=== PATIENT | female | born 1980 | race Caucasian/White ===

== ENCOUNTER 2020-06-22 14:58 | Emergency (ER) | payer OTHER, SELFPAY ==
--- NOTE | 2020-06-22 | CT_ITS ---
EXAMINATION: CT ABDOMEN AND PELVIS WITHOUT CONTRAST CLINICAL INFORMATION: Left flank pain. Evaluate for stone. COMPARISON: None TECHNIQUE: Multidetector volumetric imaging was performed from the superior aspect of the liver through the pubic symphysis. Sagittal and coronal reformatted images were obtained on the technologist's workstation. This CT examination was performed using dose optimization techniques as appropriate, variously including the following: *Automated exposure control *Adjustment of mA and/or kV according to patient size (this includes techniques or standardized protocols for targeted exams where dose is matched to indication/reason for exam; i.e. extremities or head) *Use of iterative reconstruction technique DLP: 873 mGy-cm FINDINGS: LUNG BASES: The visualized lung bases are clear. There is a small right posterior medial diaphragmatic hernia containing fat. LIVER, GALLBLADDER, AND BILIARY TREE: The liver is normal in size, shape, and attenuation. No focal hepatic lesion or biliary ductal dilatation is present. The gallbladder is unremarkable with no evidence of radiopaque gallstones, gallbladder wall thickening, or obvious pericholecystic inflammatory changes. PANCREAS: Unremarkable. SPLEEN: Unremarkable. ADRENAL GLANDS: Unremarkable. KIDNEYS AND URETERS: The kidneys are normal in size, shape, and attenuation. No hydronephrosis, hydroureter, or calculi seen. No perinephric stranding. BLADDER: Not optimally distended. GASTROINTESTINAL TRACT: There is mild diverticulosis of the colon. There is no evidence of diverticulitis. The small and large bowel are otherwise unremarkable. The appendix is is not identified. The stomach is unremarkable. ABDOMINAL WALL: There is an umbilical hernia containing fat. LYMPH NODES: There are small, small bowel mesentery and retroperitoneal lymph nodes. No enlarged lymph nodes are seen. VASCULAR: Unremarkable. PELVIC VISCERA: Unremarkable. OSSEOUS STRUCTURES: Unremarkable. IMPRESSION: Normal-appearing kidneys and ureters. No stone or hydronephrosis seen. Diverticulosis of the colon. No evidence of diverticulitis. Umbilical hernia containing fat.
--- NOTE | 2020-06-22 15:16 | ED.URI ---
HPI - URI/Sore Throat General Chief Complaint: Upper Respiratory Symptoms Stated Complaint: flank pain,eye problem Time Seen by Provider: 06/22/20 15:15 Source: patient Mode of arrival: ambulatory Limitations: no limitations History of Present Illness HPI Narrative: 40-year-old female here with multiple complaints. The patient tells me she was exposed to COVID positive patient 1 week ago. Since then she has had cough, subjective fevers, chills, body aches. no chest pain, shortness of breath. Patient is also complaining of chronic bilateral eye drainage which appears white and stringy at times it is associated with itching. She has tried multiple antibiotic ointments and [id number] eye drops with no relief. The patient is also complaining of left-sided back pain which began 2 days ago with no known injury or trauma. The pain radiates down to the groin. She has some urinary frequency and hesitancy with no dysuria or hematuria. No fevers, chills with this. No nausea or vomiting. Last menses 1 week ago. MD elicited complaint: fever ( Subjective), cough and rhinorrhea Onset (ago): day(s) Consistency: constant Severity: mild Context: sick contacts ( COVID positive contact 1 week ago) Related Data Previous Rx's Medication Instructions Recorded albuterol sulfate [ProAir HFA] 1 inh INHALATION QID PRN #6.7 g 06/22/20 benzonatate [Tessalon Perles] 100 mg PO TID PRN #10 cap 06/22/20 cetirizine 10 mg PO DAILY #30 tab 06/22/20 cyclobenzaprine 10 mg PO Q8H PRN #10 tab 06/22/20 lidocaine [Lidoderm] 1 patch TOPICAL DAILY #15 ea 06/22/20 naproxen 500 mg PO BID #14 tab 06/22/20 olopatadine [Pataday] 1 drp OPHTHALMIC (EYE) DAILY PRN 06/22/20 #2.5 ml Allergies Allergy/AdvReac Type Severity Reaction Status Date / Time tramadol [TRAMADOL] Allergy Intermediate DIARRHEA Unverified 06/01/20 17:43 ondansetron AdvReac Mild NAUSEA & Unverified 06/01/20 17:43 [From ZOFRAN ( VOMITING HYDROCHLORIDE)] Review of Systems Review of Systems: Yes all other systems are reviewed and are negative Constitutional: Constitutional: Reports no additional constitutional complaints, Reports body ache(s), Reports chills, Reports fever(s) ( subjective), Denies headache(s) and Denies weakness Eyes: Eyes: Reports no additional eye complaints, Denies change in vision and Reports eye discharge ( clear, stringy) ENT: Reports system reviewed and no additional complaints, except as documented, Denies headache(s), Denies nasal congestion, Denies nasal discharge and Denies neck pain Cardiovascular: Cardiovascular: Reports no additional cardiovascular complaints, Denies chest pain, Denies leg edema and Denies dyspnea Respiratory: Respiratory: Reports no additional respiratory complaints, Reports cough and Denies dyspnea Gastrointestinal: Gastrointestinal: Reports no additional gastrointestinal complaints, Denies abdominal pain, Denies diarrhea, Denies nausea and Denies vomiting Genitourinary: Genitourinary: Denies hematuria, Denies dysuria, Denies urinary hesitancy, Denies urinary urgency and Denies vaginal discharge Comments: frequency , hesitancy Musculoskeletal: Musculoskeletal: Reports no additional musculoskeletal complaints, Reports back pain, Denies arthralgias, Denies joint swelling, Denies neck pain, Denies numbness and Denies tingling Integumentary/Breasts: Skin/Breast: Reports system reviewed and no additional complaints, except as docu and Denies rash Neurologic: Reports system reviewed and no additional complaints, except as documented, Denies Abnormal speech present, Denies headache(s), Denies numbness, Denies Sensory deficit (Neuro), Denies tingling and Denies weakness PMFSH Past Medical History Attestation statement: The following information was validated with the patient. Source: obtained from family Social History Social History Smoking Status: Light tobacco smoker Smoked in Last 30 Days: Yes Use of substances other than those prescribed or required for medical reasons: No Advance Directives: No Advance Directives Information Provided: No Physical Exam Vital Signs and I&O and Narrative: Vital Signs and I&O: Vital Signs Temp 98.7 F 06/22/20 15:19 Pulse 71 06/22/20 15:19 Resp 17 06/22/20 15:19 BP 112/70 06/22/20 15:19 Pulse Ox 100 06/22/20 15:19 Intake & Output 06/21/20 06/22/20 06/22/20 18:59 06:59 18:59 Weight 95.254 kg Body Mass Index 32.8 Const: General: cooperative, healthy appearing, comfortable and no acute distress Orientation/consciousness: patient oriented x3 Limitations: no limitations HENMT: Head: Yes normal to inspection Ears: hearing grossly normal bilaterally General nose exam: Normal external nose present Face and sinus: Yes normal facial exam Mouth: Normal oral and palatal mucosa present Throat: Yes posterior oropharynx normal Eyes: General: appearance normal, both eyes and all related structures Visual Snider: normal visual snider by confrontation Eyelids: Yes eyelids normal Conjunctivae: conjunctivae normal ( mild bilateral injection, no discharge) Pupils: Equal, round and reactive pupils present EOM: EOMs intact bilaterally Neck: Neck: Yes normal visual inspection Chest: Chest palpation & inspection: normal inspection of the chest Resp: Effort & Inspection: normal respiratory effort Auscultation: clear to auscultation bilaterally Cardio: Rate: regular rate Rhythm: regular rhythm Peripheral pulses: Peripheral pulses 2+ throughout GI: Inspection: Yes normal to inspection Palpation (GI): Soft to palpation and nontender Auscultation: normal bowel sounds Back/Spine/Pelvis: Other: mild left CVA tenderness. More soft tissue tenderness in the left lumbar paraspinal area. No midline tenderness, step-offs or deformities. Thoracic/Lumbar Spine: thoracic and lumbar spine normal to inspection Skin: General skin exam: no rashes or lesions noted Neuro: General: patient oriented x3, no focal motor deficits and normal sensation to monofilament Cranial nerves: Yes Equal, round and reactive pupils present Cognition (Neuro): normal cognition Speech: No Abnormal speech present Gait exam (Neuro): Normal gait present Motor exam (neuro): 5/5 motor strength present throughout Sensory Exam: No Sensory deficit (Neuro) Extrem: General: Yes normal to inspection MDM - URI/Sore Throat MDM Narrative Medical decision making narrative: 40-year-old female here with multiple complaints. Complaining of flu-like symptoms with COVID exposure for about 1 week. well appearing, stable vital signs. Will check COVID swab. Also complaining of some left mid back pain with some urinary frequency and hesitancy. Will check UA. Exam are consistent with lumbar strain however due to microscopic hematuria and complains of urinary frequency and hesitancy will check CT abdomen and pelvis to rule out renal colic. Also complaining of some Eye itching with watery, stringy discharge. Consistent with allergic conjunctivitis. 1700- CT unremarkable. Likely lumbar strain. Discussed this with the patient and doing supportive care at home. Again COVID testing sent. Stable vital signs with clear lung sounds throughout. Requesting cough suppressants and albuterol inhaler refill. Discussed care for allergic conjunctivitis at home. Reviewed worrisome signs symptoms of when to return to the emergency department. Comfortable discharge home. Lab Data Labs: Lab Results 06/22/20 Range/Units 15:43 Urine Color YELLOW Urine Appearance CLEAR Urine pH 5.5 (5.0-8.0) Ur Specific [place] >= 1.030 H (1.005-1.025) Urine Protein NEG (NEG-TRACE) MG/DL Urine Glucose (UA) NEG (NEG) MG/DL Urine Ketones NEG (NEG) MG/DL Urine Blood 1+ H (NEG) Urine Nitrite NEG (NEG) Ur Leukocyte Esterase NEG (NEG) Urine RBC 5-9 H (0) /HPF Urine WBC 0 (0-4) /HPF Ur Squamous Epith Cells 2+ /LPF Urine Bacteria NONE /LPF Urine Test NEGATIVE (NEGATIVE) Imaging Data CT scan - abdomen: Attestation: I personally reviewed and interpreted this imaging study as follows: My impression: Unremarkable Radiologist's impression: XAMINATION: CT ABDOMEN AND PELVIS WITHOUT CONTRAST CLINICAL INFORMATION: Left flank pain. Evaluate for stone. COMPARISON: None TECHNIQUE: Multidetector volumetric imaging was performed from the superior aspect of the liver through the pubic symphysis. Sagittal and coronal reformatted images were obtained on the technologist's workstation. This CT examination was performed using dose optimization techniques as appropriate, variously including the following: *Automated exposure control *Adjustment of mA and/or kV according to patient size (this includes techniques or standardized protocols for targeted exams where dose is matched to indication/reason for exam; i.e. extremities or head) *Use of iterative reconstruction technique DLP: 873 mGy-cm FINDINGS: LUNG BASES: The visualized lung bases are clear. There is a small right posterior medial diaphragmatic hernia containing fat. LIVER, GALLBLADDER, AND BILIARY TREE: The liver is normal in size, shape, and attenuation. No focal hepatic lesion or biliary ductal dilatation is present. The gallbladder is unremarkable with no evidence of radiopaque gallstones, gallbladder wall thickening, or obvious pericholecystic inflammatory changes. PANCREAS: Unremarkable. SPLEEN: Unremarkable. ADRENAL GLANDS: Unremarkable. KIDNEYS AND URETERS: The kidneys are normal in size, shape, and attenuation. No hydronephrosis, hydroureter, or calculi seen. No perinephric stranding. BLADDER: Not optimally distended. GASTROINTESTINAL TRACT: There is mild diverticulosis of the colon. There is no evidence of diverticulitis. The small and large bowel are otherwise unremarkable. The appendix is is not identified. The stomach is unremarkable. ABDOMINAL WALL: There is an umbilical hernia containing fat. LYMPH NODES: There are small, small bowel mesentery and retroperitoneal lymph nodes. No enlarged lymph nodes are seen. VASCULAR: Unremarkable. PELVIC VISCERA: Unremarkable. OSSEOUS STRUCTURES: Unremarkable. IMPRESSION: Normal-appearing kidneys and ureters. No stone or hydronephrosis seen. Diverticulosis of the colon. No evidence of diverticulitis. Umbilical hernia containing fat. Discharge Plan Discharge Clinical Impression: Viral infection Lumbar strain Qualifiers: Encounter type: initial encounter Qualified Code(s): S39.012A - Strain of muscle, fascia and tendon of lower back, initial encounter Allergic conjunctivitis Qualifiers: Laterality: bilateral Qualified Code(s): H10.13 - Acute atopic conjunctivitis, bilateral Patient Disposition: Home, Self-Care Instructions: Low Back Strain (ED), Viral Syndrome (ED), Conjunctivitis (ED) Additional Instructions: We have tested you today for COVID-19. We will call you in 1-2 days with her test results . Prescriptions: New naproxen 500 mg tablet 500 mg PO BID Qty: 14 RF: 0 lidocaine [Lidoderm] 5 % adhesive patch,medicated 1 patch topical DAILY Qty: 15 RF: 0 cyclobenzaprine 10 mg tablet 10 mg PO Q8H PRN (Reason: muscle spasm) Qty: 10 RF: 0 benzonatate [Tessalon Perles] 100 mg capsule 100 mg PO TID PRN (Reason: cough) Qty: 10 RF: 0 cetirizine 10 mg tablet 10 mg PO DAILY Qty: 30 RF: 0 olopatadine [Pataday] 0.2 % drops 1 drp ophthalmic (eye) DAILY PRN (Reason: itching) Qty: 2.5 RF: 0 albuterol sulfate [ProAir HFA] 90 mcg/actuation HFA aerosol inhaler 1 inh inhalation QID PRN (Reason: shortness of breath or wheezing) Qty: 6.7 RF: 0 Referrals: Physician,None [Primary Care Provider] - 5 days Stand Alone Forms: Work/School Release Interventions: ED Discharge Assessment Last Done: 06/22/20 17:36 Discharge Date/Time: 06/22/20 17:36
[2020-06-22 15:19] VITALS: BP 112/70; PULSE 71; RESP 17; TEMP 37.1; O2SAT 100; BMI 32.8
[2020-06-22 15:55] LABS: Glucose Urine UA NEG (NEG); Leukocyte Esterase Urine NEG (NEG); Nitrite Urine NEG (NEG); PH 5.5 (5.0-8.0); Specific Gravity - Urine >= 1.030 (1.005-1.025); Urine Blood 1+ (NEG); Urine Ketones NEG (NEG); Urine Protein NEG (NEG-TRACE)
[2020-06-22 15:56] LABS: Appearance Urine CLEAR; Color Urine YELLOW
[2020-06-22 15:58] LABS: Urine Pregnancy NEGATIVE (NEGATIVE)
[2020-06-22 15:59] LABS: UPreg QC Valid YES
[2020-06-22 16:04] LABS: Squamous Epithelial Cell Urine 2+ /LPF; WBC Urine 0 /HPF (0-4)
== END 2020-06-22 17:36 | disposition home or self-care (01) ==
PROVIDERS: Nurse Practitioner Family; Emergency Provider Internal Medicine
DX: B34.9 Viral infection, unspecified (principal); Z20.828 Contact with and (suspected) exposure to other viral communicable diseases; H10.13 Acute atopic conjunctivitis, bilateral; S39.012A Strain of muscle, fascia and tendon of lower back, initial encounter; X58.XXXA Exposure to other specified factors, initial encounter; F17.210 Nicotine dependence, cigarettes, uncomplicated; Y93.9 Activity, unspecified; Y92.9 Unspecified place or not applicable; Y99.9 Unspecified external cause status
CPT/HCPCS: 74176; 81001; 81025; 87635; 99284

== ENCOUNTER 2021-05-14 13:57 | Emergency (ER) | payer MEDICAID, SELFPAY ==
[2021-05-14 14:15] VITALS: BP 111/72; PULSE 82; RESP 16; TEMP 36.8; O2SAT 99; BMI 31.7
--- NOTE | 2021-05-14 16:04 | ED_ITS ---
HPI - Skin/Abscess/Foreign Bdy General Chief complaint: Skin/Abscess/Foreign Body Stated complaint: cyst on back of left thigh x 2 weeks Time Seen by Provider: 05/14/21 16:04 Source: patient and EMS Mode of arrival: EMS Limitations: no limitations History of Present Illness HPI narrative: 41 y/o female with history of anxiety, depression, multiple abscesses in the past presenting to the ER with 1.5 weeks of worsening left posterior thigh abscess. She reports she ignored it and put it off because her father was just diagnosed with COVID-19 and last week. She reports generally not feeling well with some nausea. The redness and swelling has gotten worse in the last 48 hours. She also ran out of her Celexa and has not been able to see her PCP as she was dealing with her father's . She reports increased anxiety and depression in the setting of his loss. She is trying to get set up with a therapist. She was prescribed hydroxyzine at an Urgent Care but had an adverse reaction with increased anxiety. MD complaint: abscess/boil Onset (ago): week(s) Tetanus up to date: yes Location: LLE Severity: moderate Severity scale (1-10): 7 Quality: aching Pain Consistency: constant Relieving factors: none Exacerbating factors: palpation and movement Context: none Associated symptoms: chills and nausea Treatments prior to arrival: none Related Data Previous Rx's Medication Instructions Recorded albuterol sulfate 90 mcg/actuation 1 inh INHALATION QID PRN #6.7 g 06/22/20 aerosol inhaler (ProAir HFA) benzonatate 100 mg capsule 100 mg PO TID PRN #10 cap 06/22/20 (Adriana Paulson) cetirizine 10 mg tablet 10 mg PO DAILY #30 tab 06/22/20 cyclobenzaprine 10 mg tablet 10 mg PO Q8H PRN #10 tab 06/22/20 lidocaine 5 % topical patch 1 patch TOPICAL DAILY #15 ea 06/22/20 (Lidoderm) naproxen 500 mg tablet 500 mg PO BID #14 tab 06/22/20 olopatadine 0.2 % eye drops 1 drp OPHTHALMIC (EYE) DAILY PRN 06/22/20 (Pataday) #2.5 ml cephalexin 500 mg capsule 500 mg PO Q6H 7 Days #28 cap 05/14/21 citalopram 20 mg tablet (Celexa) 20 mg PO DAILY #14 tab 05/14/21 doxycycline monohydrate 100 mg 100 mg PO BID #14 cap 05/14/21 capsule lorazepam 0.5 mg tablet (Ativan) 0.5 mg PO BID PRN #6 tab 05/14/21 Allergies Allergy/AdvReac Type Severity Reaction Status Date / Time tramadol [TRAMADOL] Allergy Intermediate DIARRHEA Unverified 06/01/20 17:43 ondansetron AdvReac Mild NAUSEA & Unverified 06/01/20 17:43 [From ZOFRAN ( VOMITING HYDROCHLORIDE)] Review of Systems Review of Systems: Constitutional: No Fever, +Chills ENT/Mouth: No sore throat, No Rhinorrhea, No Swallowing Difficulty Cardiovascular: No Chest Pain, No SOB, No Orthopnea, No Edema Respiratory: No Cough, No Sputum, No Wheezing, No dyspnea Gastrointestinal: + Nausea, No Vomiting, No Diarrhea, No abdominal Pain Genitourinary: No Dysuria, No Urinary Frequency, No Hematuria Musculoskeletal: No joint pain, + Myalgias Skin: + Skin Lesions, No rash Neuro: No Weakness, No Numbness, No Dizziness, + Headache Psych: + Anxiety/Panic, + Depression Heme/Lymph: No Bruising, No Lymphadenopathy PMFSH Social History Social History Advance Directives: No Advance Directives Information Provided: No Patient : No Physical Exam Vital Signs: Vital Signs: Last Vital Signs Temp 98.2 F 05/14/21 14:15 Pulse 95 05/14/21 17:35 Resp 18 05/14/21 17:35 BP 103/59 L 05/14/21 17:35 Pulse Ox 97 05/14/21 17:35 Body Mass Index 31.7 Appearance: Alert. Oriented X3. No acute distress. anxious HEENT: normal inspection CVS: Normal heart rate and rhythm. Pulses normal. Respiratory: No respiratory distress. Skin: Skin warm and dry. Normal skin color. Normal skin turgor. No rashes. Extremities: left posteror thigh with moderate area of erythema and warmth with central area of fluctance and purplish coloration, very tender to touch. pulses normal. NV intact distally. no left calf tenderness. Neuro: Oriented X 3. No motor deficit. No sensory deficit. ambulates wtih steady gait. Course Course Course Narrative: 41 y/o female presenting with cellulitis and abscess of her l eft posterior thigh x1.5 weeks as well as increased anxiety and depression. Abscess was drained and will place on double coverage ABX. area marked with pen, advised to return if worsening erythema or pain. We discussed importance of outpatient follow up for her mental health as well as therapy. will give 2 week rx for celexa which she recently ran out of as well as 5 low dose ativan PRN for acute anxiety. Stable for d/c home, agrees to follow up with PCP [facility]. Procedures Abscess I/D Site: lower extremity Side (if applicable): left Local Anesthetic: lidocaine 2% Amount of anesthesia used (mL): 2 Technique: incised with blade Sent for culture/gram staining?: No Irrigation: Yes Packing used?: none Complications: pain Critical Care Time Critical Care Time Critical Care Time: No Discharge Plan Discharge Clinical Impression: Abscess of skin or subcutaneous tissue Qualifiers: Site of cutaneous abscess: extremity Site of cutaneous abscess of extremity: lower extremity Laterality: left Qualified Code(s): L02.416 - Cutaneous abscess of left lower limb Patient Disposition: Home, Self-Care Instructions: Abscess Incision and Drainage (DC) Additional Instructions: Take the prescribed antibiotics as directed. Use warm compresses to the area several times per day to help bring the infection to the surface and drain. Take Motrin and/or Tylenol as needed for pain. If you notice the red marked area is worsening despite 24-48 hours of antibiotics, come back to the ER for further evaluation. Follow up with your PCP [facility]. Take the prescribed medication as needed for anxiety - do not drive after taking this. Recommend following up with a therapist for anxiety management. Prescriptions: New doxycycline monohydrate 100 mg capsule 100 mg PO BID Qty: 14 RF: 0 cephalexin 500 mg capsule 500 mg PO Q6H 7 Days Qty: 28 RF: 0 citalopram [Celexa] 20 mg tablet 20 mg PO DAILY Qty: 14 RF: 0 lorazepam [Ativan] 0.5 mg tablet 0.5 mg PO BID PRN (Reason: anxiety) Qty: 6 RF: 0 No Action naproxen 500 mg tablet 500 mg PO BID Qty: 14 RF: 0 lidocaine [Lidoderm] 5 % adhesive patch,medicated 1 patch topical DAILY Qty: 15 RF: 0 cyclobenzaprine 10 mg tablet 10 mg PO Q8H PRN (Reason: muscle spasm) Qty: 10 RF: 0 benzonatate [Tessalon Perles] 100 mg capsule 100 mg PO TID PRN (Reason: cough) Qty: 10 RF: 0 cetirizine 10 mg tablet 10 mg PO DAILY Qty: 30 RF: 0 olopatadine [Pataday] 0.2 % drops 1 drp ophthalmic (eye) DAILY PRN (Reason: itching) Qty: 2.5 RF: 0 albuterol sulfate [ProAir HFA] 90 mcg/actuation HFA aerosol inhaler 1 inh inhalation QID PRN (Reason: shortness of breath or wheezing) Qty: 6.7 RF: 0 Referrals: Bianka Alvarez PA-C [[facility]] - 1 week (recurrent abscesses and rashes) Interventions: ED Discharge Assessment Last Done: 05/14/21 17:54 Discharge Date/Time: 05/14/21 17:55
[2021-05-14] MEDS: Lidocaine HCl 2 % MPF 5 ML VIAL INFILTRATI (16:37)
[2021-05-14] MEDS: Ibuprofen 600 MG TABLET PO (17:34)
[2021-05-14] MEDS: cephALEXin 500 MG CAPSULE PO (17:34)
[2021-05-14] MEDS: LORazepam 1 MG TABLET PO (17:34)
[2021-05-14 17:35] VITALS: BP 103/59; PULSE 95; RESP 18; O2SAT 97
== END 2021-05-14 17:55 | disposition home or self-care (01) ==
PROVIDERS: Emergency Provider Internal Medicine
DX: L02.416 Cutaneous abscess of left lower limb (principal); Z79.899 Other long term (current) drug therapy
CPT/HCPCS: 10060; 99284

== ENCOUNTER 2022-02-25 13:58 | Emergency (ER) | payer MEDICAID, SELFPAY | END 2022-02-25 14:41 | disposition left against medical advice (07) | PROVIDERS: Emergency Provider Emergency Medicine | DX: N23 Unspecified renal colic (principal) ==

== ENCOUNTER 2022-09-17 10:56 | Emergency (ER) | payer MEDICAID, SELFPAY ==
--- NOTE | ~2022-09-17 | CT_ITS ---
EXAMINATION: CT ABDOMEN AND PELVIS WITH CONTRAST CLINICAL INFORMATION: 42-year-old female with history of abdominal pain and elevated lipase, nausea, vomiting, diarrhea. COMPARISON: 06/22/2020 TECHNIQUE: Multidetector volumetric images were obtained from the superior aspect of the liver through the pubic symphysis following administration 85 mL of Omnipaque 350 intravenous contrast. Sagittal and coronal reformatted images were obtained on the technologist's workstation. Oral contrast: No This CT examination was performed using dose optimization techniques as appropriate, variously including the following: *Automated exposure control *Adjustment of mA and/or kV according to patient size (this includes techniques or standardized protocols for targeted exams where dose is matched to indication/reason for exam; i.e. extremities or head) *Use of iterative reconstruction technique DLP: 1696 mGy-cm FINDINGS: LUNG BASES: Minimal atelectasis in dependent aspect of each lower lobe. No pulmonary consolidation or pleural effusion. LIVER: Mild hepatomegaly. Liver parenchyma has attenuation approximately 30 HU lower than the spleen on these portal venous phase images, consistent with steatosis. No focal lesion or intrahepatic ductal dilatation. GALLBLADDER AND BILIARY TREE: Gallbladder is without radiopaque stones, wall thickening or pericholecystic fluid. No dilated bile ducts. PANCREAS: No acute findings within the atrophied pancreas. No edema, pancreatic ductal dilatation or mass. SPLEEN: Normal. ADRENAL GLANDS: Normal. KIDNEYS AND URETERS: The kidneys have normal size and cortical thickness. No perinephric edema or fluid collection. No urolithiasis or hydroureteronephrosis. BLADDER: Normal. No calculi or wall thickening. BOWEL AND PERITONEUM: Stomach and small bowel are unremarkable. No dilated loops of bowel. The appendix is not identified; however, no inflammatory changes in the right lower quadrant. No overt bowel wall thickening or mesenteric fat stranding. Multiple diverticula of the right and left colon without evidence of diverticulitis. No free fluid or pneumoperitoneum. ABDOMINAL WALL: Small fat-containing umbilical hernia is present. The hernia sac measures 1.9 cm wide. VASCULATURE: Unremarkable. LYMPH NODES: No pathologic sized lymph nodes in the abdomen or pelvis. No inguinal lymphadenopathy. PELVIC VISCERA: No uterine or adnexal mass. No pelvic free fluid. MUSCULOSKELETAL: Mild multilevel discovertebral degenerative change of the visualized lower thoracic spine. Moderate to severe facet osteoarthritis of L4-L5. No suspicious bone lesions. CT/CT abdomen pelvis w IV con IMPRESSION: * No acute findings. No imaging evidence of pancreatitis. * Mild hepatomegaly and diffuse hepatic steatosis. * Colonic diverticulosis without diverticulitis. * Small fat-containing umbilical hernia is present.
--- NOTE | ~2022-09-17 | XR_ITS ---
EXAMINATION: XR SHOULDER, RIGHT CLINICAL INFORMATION: Pain COMPARISON: Chest radiographs 05/19/2017 and 08/30/2016 TECHNIQUE: Right shoulder is imaged in 3 views. FINDINGS: There is borderline elevation distal right clavicle which may suggest mild acromioclavicular sprain. Recommend correlation with patient's symptoms and clinical exam. The glenohumeral joint appears normal. There is no fracture, dislocation, or destructive process. No visible rotator cuff calcifications. XR/XR shoulder RT min 2V IMPRESSION: 1. Borderline elevation distal right clavicle which may suggest mild acromioclavicular sprain. Recommend correlation with patient's symptoms and clinical exam. 2. No visible rotator cuff calcifications.
--- NOTE | ~2022-09-17 | CT_ITS ---
EXAMINATION: CT CERVICAL SPINE WITHOUT CONTRAST CLINICAL INFORMATION: Radicular symptoms right arm. COMPARISON: None TECHNIQUE: CT of the cervical spine was performed without contrast. Multiplanar reformats were rendered and reviewed. This CT examination was performed using dose optimization techniques as appropriate, variously including the following: *Automated exposure control *Adjustment of mA and/or kV according to patient size (this includes techniques or standardized protocols for targeted exams where dose is matched to indication/reason for exam; i.e. extremities or head) *Use of iterative reconstruction technique DLP: 1696 mGy-cm FINDINGS: The cervical vertebral bodies maintain normal heights and alignment. No fractures seen. The disc heights are preserved. The craniovertebral junction is intact without significant degenerative change. The facet joints are normally aligned. No significant facet arthropathy is seen. There is no significant osseous narrowing of the spinal canal. No significant neural foraminal stenosis is seen. The lung apices are clear. The cervical soft tissues appear normal. The imaged intracranial contents are unremarkable. CT/CT cervical spine wo IV con IMPRESSION: No cervical spine fracture or malalignment. No significant osseous narrowing of the spinal canal or neural foramina.
--- NOTE | 2022-09-17 11:56 | ED.GENADULT ---
HPI - General Adult General Chief complaint: Abdominal Pain <WOJCIECH Diaz - Last Filed: 09/17/22 12:03> Stated complaint: R arm numbness x3 weeks/Nausea <WOJCIECH Diaz Last Filed: 09/17/22 12:03> Time Seen by Provider: 09/17/22 14:37 <WOJCIECH Diaz - Last Filed: 09/17/22 12:03> Source: patient <Krystyna Conley DO - Last Filed: 09/17/22 17:06> Mode of arrival: ambulatory <Krystyna Conley DO - Last Filed: 09/17/22 17:06> Limitations: no limitations <Krystyna Conley DO - Last Filed: 09/17/22 17:06> History of Present Illness HPI narrative: 42 yo female with hx of anxiety, appendectomy with multiple complaints 1. R arm pain and numbness intermittent but daily and worse at night for a few months 2. N/v/d abdominal pain for the past few days 3. mood swings and anxiety with hot flashes and no period for 4 months - klonopin used to help her anxiety but has no prescriber <Krystyna Conley DO - Last Filed: 09/17/22 17:06> MD complaint: GI distress, RUE pain <Krystyna Conley DO - Last Filed: 09/17/22 17:06> Onset (ago): month(s) <Krystyna Conley DO - Last Filed: 09/17/22 17:06> Location: abdomen, right and upper extremity <Krystyna Conley DO - Last Filed: 09/17/22 17:06> Radiation: non-radiation <Krystyna Conley DO - Last Filed: 09/17/22 17:06> Severity: moderate <Krystyna Conley DO - Last Filed: 09/17/22 17:06> Quality: aching and dull <Krystyna Conley DO - Last Filed: 09/17/22 17:06> Pain Consistency: intermittent <Krystyna Conley DO - Last Filed: 09/17/22 17:06> Relieving factors: immobilization <Krystyna Conley DO - Last Filed: 09/17/22 17:06> Exacerbating factors: other (R arm pain worse at night worse with movements) <DO Arcadio Lozada Last Filed: 09/17/22 17:06> Associated symptoms: malaise, nausea/vomiting and other (anxiety) <Krystyna Conley DO - Last Filed: 09/17/22 17:06> Related Data Home medications: Previous Rx's Medication Instructions Recorded albuterol sulfate 90 mcg/actuation 1 inh inhalation QID PRN shortness 06/22/20 aerosol inhaler (ProAir HFA) of breath or wheezing #6.7 grams benzonatate 100 mg capsule 100 mg PO TID PRN cough #10 caps 06/22/20 (Tessalon Perles) cetirizine 10 mg tablet 10 mg PO DAILY #30 tabs 06/22/20 cyclobenzaprine 10 mg tablet 10 mg PO Q8H PRN muscle spasm #10 06/22/20 tabs lidocaine 5 % topical patch 1 patch topical DAILY #15 ea 06/22/20 (Lidoderm) naproxen 500 mg tablet 500 mg PO BID #14 tabs 06/22/20 olopatadine 0.2 % eye drops 1 drp ophthalmic (eye) DAILY PRN 06/22/20 (Pataday) itching #2.5 mL cephalexin 500 mg capsule 500 mg PO Q6H 7 days #28 caps 05/14/21 citalopram 20 mg tablet (Celexa) 20 mg PO DAILY #14 tabs 05/14/21 doxycycline monohydrate 100 mg 100 mg PO BID #14 caps 05/14/21 capsule lorazepam 0.5 mg tablet (Ativan) 0.5 mg PO BID PRN anxiety #6 tabs 05/14/21 carisoprodol 350 mg tablet (Soma) 350 mg PO QID PRN muscle pain #20 09/17/22 tabs clonazepam 1 mg tablet (Klonopin) 1 mg PO BEDTIME #10 tabs 09/17/22 loperamide 2 mg tablet (Imodium 2 mg PO Q6H PRN loose stool #14 09/17/22 A-D) tabs <WOJCIECH Diaz - Last Filed: 09/17/22 12:03> Allergies/adverse reactions: Allergies Allergy/AdvReac Type Severity Reaction Status Date / Time tramadol [TRAMADOL] Allergy Intermediate DIARRHEA Unverified 06/01/20 17:43 ondansetron AdvReac Mild NAUSEA & Unverified 06/01/20 17:43 [From ZOFRAN ( VOMITING HYDROCHLORIDE)] <WOJCIECH Diaz - Last Filed: 09/17/22 12:03> Review of Systems Review of Systems: Constitutional : No Weight loss, No Fever, No Chills ENT/Mouth : No sore throat, No Rhinorrhea Eyes: No Swelling, No Redness Cardiovascular : No Chest Pain, No SOB, NoEdema Respiratory : No Cough, No Sputum, No Wheezing Gastrointestinal : Positive Nausea, Positive Vomiting, positive Diarrhea, positive abdominal Pain, No Hematochezia, No Melena Genitourinary : No Dysuria, No Urinary Frequency, No Hematuria, No Urgency Musculoskeletal : No joint pain, No Myalgias, No Joint Swelling Skin : No Skin Lesions, No rash Neuro : No Weakness, No Numbness, No Dizziness, No Headache Psych : pos Anxiety/Panic, No Depression Heme/Lymph: No Bruising, No Lymphadenopathy Endocrine : No Polyuria, No Polydipsia All other systems reviewed and are negative. <Krystyna Conley DO - Last Filed: 09/17/22 17:06> [facility] Past Medical History Attestation statement: The following information was validated with the patient. <Krystyna Conley DO - Last Filed: 09/17/22 17:06> Medical History: Medical History Anxiety Migraines <WOJCIECH Diaz - Last Filed: 09/17/22 12:03> Social History Social History: Social History (Updated 09/17/22 @ 15:07 by Krystyna Conley DO) Alcohol intake: unknown Patient Tobacco Use Status: Tobacco use Unknown Smoked in Last 30 Days: No Use of substances other than those prescribed or required for medical reasons: Unknown Advance Directives: No Advance Directives Information Provided: No <WOJCIECH Diaz - Last Filed: 09/17/22 12:03> Physical Exam ED Vital Signs: Vital Signs - 24 hr 09/17/22 11:57 09/17/22 15:11 Temperature 97.5 F 97.7 F Pulse Rate 83 64 Respiratory Rate 20 18 Blood Pressure 118/61 122/58 L Pulse Oximetry 98 96 Oxygen Delivery Method Room Air Room Air BMI result Body Mass Index 32.5 <WOJCIECH Diaz - Last Filed: 09/17/22 12:03> Vital Signs - 24 hr 09/17/22 11:57 09/17/22 15:11 Temperature 97.5 F 97.7 F Pulse Rate 83 64 Respiratory Rate 20 18 Blood Pressure 118/61 122/58 L Pulse Oximetry 98 96 Oxygen Delivery Method Room Air Room Air BMI result Body Mass Index 32.5 <Krystyna Conley DO - Last Filed: 09/17/22 17:06> Vital Signs - 24 hr 09/17/22 11:57 09/17/22 15:11 Temperature 97.5 F 97.7 F Pulse Rate 83 64 Respiratory Rate 20 18 Blood Pressure 118/61 122/58 L Pulse Oximetry 98 96 Oxygen Delivery Method Room Air Room Air BMI result Body Mass Index 32.5 <Raffi Land MD - Last Filed: 09/17/22 17:27> Appearance: Alert. Oriented X3. No acute distress. Eyes: Pupils equal, round and reactive to light. ENT: Pharynx normal. Neck: Normal inspection. Neck supple. mild neck pain on R side CVS: Normal heart rate and rhythm. Pulses normal. Respiratory: No respiratory distress. Breath sounds normal. Abdomen: Soft and nontender. Skin: Skin warm and dry. Normal skin color. Normal skin turgor. Extremities: No lower extremity edema. No calf ttp 2+ pulse in R UE Neuro: Oriented X 3. No motor deficit. No sensory deficit. <Krystyna Conley DO - Last Filed: 09/17/22 17:06> Course Course Course Narrative: RME--42yo F c/o increasing anxiety, chills, myalgias, N/V, watery diarrhea, abdominal pain & R shoulder pain w/ R arm numbness x mos. Also reports has not had her period in 4-5mos. Denies known injury/trauma or fall, CP/SOB R shoulder ttp elicited on exam with mild decreased Abduction, abdomen soft nontender. peripheral pulses intact COVID/flu/RSV, labs, test and Shoulder XR ordered in triage <WOJCIECH Diaz - Last Filed: 09/17/22 12:03> RME--42yo F c/o increasing anxiety, chills, myalgias, N/V, watery diarrhea, abdominal pain & R shoulder pain w/ R arm numbness x mos. Also reports has not had her period in 4-5mos. Denies known injury/trauma or fall, CP/SOB R shoulder ttp elicited on exam with mild decreased Abduction, abdomen soft nontender. peripheral pulses intact COVID/flu/RSV, labs, test and Shoulder XR ordered in triage signed out to Dr. Goel pending CT scans <Krystyna Conley DO - Last Filed: 09/17/22 17:06> Medications Administered Discontinued Medications Generic Name Dose Route Start Last Admin Trade Name Freq PRN Reason Stop Dose Admin Diphenhydramine HCl 25 mg 09/17/22 14:52 09/17/22 15:27 Diphenhydramine Hcl 50 Mg/Ml Vial IVPUSH 09/17/22 14:53 25 mg ONCE ONE Administration Lactated Ringer's 1,000 mls @ 999 mls/hr 09/17/22 15:00 09/17/22 16:36 Lr IV 09/17/22 16:00 Infused .Q1H1M ROSA Infusion Iohexol 100 ml 09/17/22 15:47 09/17/22 15:48 Iohexol 350 Mg/Ml 100 Ml Infus..Btl IV 09/17/22 15:48 85 ml ONCE ONE Administration Ketorolac Tromethamine 15 mg 09/17/22 14:53 09/17/22 15:28 Ketorolac Tromethamine 15 Mg/Ml Vial IVPUSH 09/17/22 14:54 15 mg ONCE ONE Administration Metoclopramide HCl 10 mg 09/17/22 14:52 09/17/22 15:27 Metoclopramide Hcl 10 Mg/2 Ml Vial IVPUSH 09/17/22 14:53 10 mg ONCE ONE Administration <WOJCIECH Diaz - Last Filed: 09/17/22 12:03> Medications Administered Discontinued Medications Generic Name Dose Route Start Last Admin Trade Name Freq PRN Reason Stop Dose Admin Diphenhydramine HCl 25 mg 09/17/22 14:52 09/17/22 15:27 Diphenhydramine Hcl 50 Mg/Ml Vial IVPUSH 09/17/22 14:53 25 mg ONCE ONE Administration Lactated Ringer's 1,000 mls @ 999 mls/hr 09/17/22 15:00 09/17/22 16:36 Lr IV 09/17/22 16:00 Infused .Q1H1M ROSA Infusion Iohexol 100 ml 09/17/22 15:47 09/17/22 15:48 Iohexol 350 Mg/Ml 100 Ml Infus..Btl IV 09/17/22 15:48 85 ml ONCE ONE Administration Ketorolac Tromethamine 15 mg 09/17/22 14:53 09/17/22 15:28 Ketorolac Tromethamine 15 Mg/Ml Vial IVPUSH 09/17/22 14:54 15 mg ONCE ONE Administration Metoclopramide HCl 10 mg 09/17/22 14:52 09/17/22 15:27 Metoclopramide Hcl 10 Mg/2 Ml Vial IVPUSH 09/17/22 14:53 10 mg ONCE ONE Administration <Krystyna Conley DO - Last Filed: 09/17/22 17:06> Medications Administered Discontinued Medications Generic Name Dose Route Start Last Admin Trade Name Freq PRN Reason Stop Dose Admin Diphenhydramine HCl 25 mg 09/17/22 14:52 09/17/22 15:27 Diphenhydramine Hcl 50 Mg/Ml Vial IVPUSH 09/17/22 14:53 25 mg ONCE ONE Administration Lactated Ringer's 1,000 mls @ 999 mls/hr 09/17/22 15:00 09/17/22 16:36 Lr IV 09/17/22 16:00 Infused .Q1H1M ROSA Infusion Iohexol 100 ml 09/17/22 15:47 09/17/22 15:48 Iohexol 350 Mg/Ml 100 Ml Infus..Btl IV 09/17/22 15:48 85 ml ONCE ONE Administration Ketorolac Tromethamine 15 mg 09/17/22 14:53 09/17/22 15:28 Ketorolac Tromethamine 15 Mg/Ml Vial IVPUSH 09/17/22 14:54 15 mg ONCE ONE Administration Metoclopramide HCl 10 mg 09/17/22 14:52 09/17/22 15:27 Metoclopramide Hcl 10 Mg/2 Ml Vial IVPUSH 09/17/22 14:53 10 mg ONCE ONE Administration <Raffi Land MD - Last Filed: 09/17/22 17:27> Medical Decision Making Medical Decision Making MDM Narrative: 42 yo female hx of anxiety, prior appendectomy presents with abdominal pain n/v/d and R sided numbness in UE intermittent suspect radicular pain. At this time she is NV intact. Will obtain cervical CT scan, CT scan for colitis. IVF and IV medications for discomfort. I do not feel comfortable prescribing benzodiazepines for anxiety which she states are the only things that work for her. <Krystyna Conley DO - Last Filed: 09/17/22 17:06> 42 yo female hx of anxiety, prior appendectomy presents with abdominal pain n/v/d and R sided numbness in UE intermittent suspect radicular pain. At this time she is NV intact. Will obtain cervical CT scan, CT scan for colitis. IVF and IV medications for discomfort. I do not feel comfortable prescribing benzodiazepines for anxiety which she states are the only things that work for her. 1715 Patient history of anxiety with chronic upper back pain and right arm paresthesia been told possible she has fibromyalgia unable to get psychiatrist workup is negative will discharge patient home on Soma, Klonopin, Imodium for chronic diarrhea patient cannot take tramadol/opiates <Raffi Land MD - Last Filed: 09/17/22 17:27> Differential Diagnosis Differential Diagnoses: The differential diagnosis associated with the presentation includes <Krystyna Conley DO - Last Filed: 09/17/22 17:06> colitis, viral syndrome, carpal tunnel, anxiety, lyte abnormality, cervical radiculopathy <Krystyna Conley DO - Last Filed: 09/17/22 17:06> Lab Data [facility] Lab Attestation statement: I reviewed the patient's lab results. <Krystyna Conley DO - Last Filed: 09/17/22 17:06> Result Diagrams: : 09/17/22 12:24 09/17/22 12:24 <WOJCIECH Diaz - Last Filed: 09/17/22 12:03> Labs: Lab Results 09/17/22 09/17/22 09/17/22 Range/Units 12:24 12:24 12:24 WBC 6.2 (4.8-10.8) X10*3/uL RBC 4.94 (4.20-5.50) X10*6/uL Hgb 14.6 (12.0-16.0) g/dl Hct 43.9 (37.0-47.0) % MCV 88.9 (80.0-98.0) fL MCH 29.6 (27.0-33.0) pg MCHC 33.3 (31.0-35.0) g/dl RDW 13.0 (11.0-16.0) % Plt Count 295 (160-400) X10*3/uL MPV 10.1 (9.4-12.3) fL Immature Gran % (Auto) 0.2 (0.0-0.4) % Neut % (Auto) 55.1 (45-73) % Lymph % (Auto) 28.4 (20-40) % [place] % (Auto) 10.7 (2-11) % Eos % (Auto) 4.3 H (0-4) % Baso % (Auto) 1.3 (0-2) % Lymph # (Auto) 1.8 (1.2-4.9) X10*3/uL [place] # (Auto) 0.7 (0.1-1.2) X10*3/uL Eos # (Auto) 0.3 (0.0-0.4) X10*3/uL Baso # (Auto) 0.1 (0.0-0.2) X10*3/uL Abs Immat Gran (auto) 0.01 (0.00-0.03) X10*3/uL Absolute Neuts (auto) 3.4 (2.0-8.3) x10*3/uL Absolute Nucleated RBC 0.000 (0.0-0.012) X10*3/uL Nucleated RBC % (auto) 0.0 (0.0-0.2) /100WBC Sodium 139 (135-145) mmol/L Potassium 3.9 (3.3-5.1) mmol/L Chloride 105 (96-108) mmol/L Carbon Dioxide 26 (22-29) mmol/L Anion Gap 12 (12-20) BUN 15 (9-16) mg/dL Creatinine 1.02 (0.5-1.4) mg/dL Estim Creat Clear Calc 89.3 Estimated GFR 59 Random Glucose 139 H (60-115) mg/dL Calcium 9.5 (8.4-10.2) mg/dL Magnesium 1.8 (1.6-2.6) mg/dL Total Bilirubin 0.3 (0.0-1.0) mg/dL Direct Bilirubin < 0.2 (0.0-0.5) mg/dL AST 24 (5-31) U/L ALT 36 H (0-31) U/L Alkaline Phosphatase 56 (39-117) U/L Total Protein 7.3 (6.5-8.0) g/dL Albumin 4.3 (3.5-5.0) g/dL Lipase 90 H (8-78) U/L Beta HCG, Quant < 2 mIU/mL Influenza Type A (PCR) NEGATIVE (Negative) Influenza Type B (PCR) NEGATIVE (Negative) RSV RNA Qual (PCR) NEGATIVE (Negative) SARS-CoV-2 RNA (RT-PCR) NEGATIVE (Negative) <WOJCIECH Diaz - Last Filed: 09/17/22 12:03> Lab Results 09/17/22 09/17/22 09/17/22 Range/Units 12:24 12:24 12:24 WBC 6.2 (4.8-10.8) X10*3/uL RBC 4.94 (4.20-5.50) X10*6/uL Hgb 14.6 (12.0-16.0) g/dl Hct 43.9 (37.0-47.0) % MCV 88.9 (80.0-98.0) fL MCH 29.6 (27.0-33.0) pg MCHC 33.3 (31.0-35.0) g/dl RDW 13.0 (11.0-16.0) % Plt Count 295 (160-400) X10*3/uL MPV 10.1 (9.4-12.3) fL Immature Gran % (Auto) 0.2 (0.0-0.4) % Neut % (Auto) 55.1 (45-73) % Lymph % (Auto) 28.4 (20-40) % [place] % (Auto) 10.7 (2-11) % Eos % (Auto) 4.3 H (0-4) % Baso % (Auto) 1.3 (0-2) % Lymph # (Auto) 1.8 (1.2-4.9) X10*3/uL [place] # (Auto) 0.7 (0.1-1.2) X10*3/uL Eos # (Auto) 0.3 (0.0-0.4) X10*3/uL Baso # (Auto) 0.1 (0.0-0.2) X10*3/uL Abs Immat Gran (auto) 0.01 (0.00-0.03) X10*3/uL Absolute Neuts (auto) 3.4 (2.0-8.3) x10*3/uL Absolute Nucleated RBC 0.000 (0.0-0.012) X10*3/uL Nucleated RBC % (auto) 0.0 (0.0-0.2) /100WBC Sodium 139 (135-145) mmol/L Potassium 3.9 (3.3-5.1) mmol/L Chloride 105 (96-108) mmol/L Carbon Dioxide 26 (22-29) mmol/L Anion Gap 12 (12-20) BUN 15 (9-16) mg/dL Creatinine 1.02 (0.5-1.4) mg/dL Estim Creat Clear Calc 89.3 Estimated GFR 59 Random Glucose 139 H (60-115) mg/dL Calcium 9.5 (8.4-10.2) mg/dL Magnesium 1.8 (1.6-2.6) mg/dL Total Bilirubin 0.3 (0.0-1.0) mg/dL Direct Bilirubin < 0.2 (0.0-0.5) mg/dL AST 24 (5-31) U/L ALT 36 H (0-31) U/L Alkaline Phosphatase 56 (39-117) U/L Total Protein 7.3 (6.5-8.0) g/dL Albumin 4.3 (3.5-5.0) g/dL Lipase 90 H (8-78) U/L Beta HCG, Quant < 2 mIU/mL Influenza Type A (PCR) NEGATIVE (Negative) Influenza Type B (PCR) NEGATIVE (Negative) RSV RNA Qual (PCR) NEGATIVE (Negative) SARS-CoV-2 RNA (RT-PCR) NEGATIVE (Negative) <Krystyna Conley DO - Last Filed: 09/17/22 17:06> Lab Results 09/17/22 09/17/2223 Range/Units 12:24 12:24 12:24 WBC 6.2 (4.8-10.8) X10*3/uL RBC 4.94 (4.20-5.50) X10*6/uL Hgb 14.6 (12.0-16.0) g/dl Hct 43.9 (37.0-47.0) % MCV 88.9 (80.0-98.0) fL MCH 29.6 (27.0-33.0) pg MCHC 33.3 (31.0-35.0) g/dl RDW 13.0 (11.0-16.0) % Plt Count 295 (160-400) X10*3/uL MPV 10.1 (9.4-12.3) fL Immature Gran % (Auto) 0.2 (0.0-0.4) % Neut % (Auto) 55.1 (45-73) % Lymph % (Auto) 28.4 (20-40) % [place] % (Auto) 10.7 (2-11) % Eos % (Auto) 4.3 H (0-4) % Baso % (Auto) 1.3 (0-2) % Lymph # (Auto) 1.8 (1.2-4.9) X10*3/uL [place] # (Auto) 0.7 (0.1-1.2) X10*3/uL Eos # (Auto) 0.3 (0.0-0.4) X10*3/uL Baso # (Auto) 0.1 (0.0-0.2) X10*3/uL Abs Immat Gran (auto) 0.01 (0.00-0.03) X10*3/uL Absolute Neuts (auto) 3.4 (2.0-8.3) x10*3/uL Absolute Nucleated RBC 0.000 (0.0-0.012) X10*3/uL Nucleated RBC % (auto) 0.0 (0.0-0.2) /100WBC Sodium 139 (135-145) mmol/L Potassium 3.9 (3.3-5.1) mmol/L Chloride 105 (96-108) mmol/L Carbon Dioxide 26 (22-29) mmol/L Anion Gap 12 (12-20) BUN 15 (9-16) mg/dL Creatinine 1.02 (0.5-1.4) mg/dL Estim Creat Clear Calc 89.3 Estimated GFR 59 Random Glucose 139 H (60-115) mg/dL Calcium 9.5 (8.4-10.2) mg/dL Magnesium 1.8 (1.6-2.6) mg/dL Total Bilirubin 0.3 (0.0-1.0) mg/dL Direct Bilirubin < 0.2 (0.0-0.5) mg/dL AST 24 (5-31) U/L ALT 36 H (0-31) U/L Alkaline Phosphatase 56 (39-117) U/L Total Protein 7.3 (6.5-8.0) g/dL Albumin 4.3 (3.5-5.0) g/dL Lipase 90 H (8-78) U/L Beta HCG, Quant < 2 mIU/mL Influenza Type A (PCR) NEGATIVE (Negative) Influenza Type B (PCR) NEGATIVE (Negative) RSV RNA Qual (PCR) NEGATIVE (Negative) SARS-CoV-2 RNA (RT-PCR) NEGATIVE (Negative) <Raffi Land MD - Last Filed: 09/17/22 17:27> Independent Interpretation I performed an independent interpretation of an: CT Scan <Krystyna Conley DO - Last Filed: 09/17/22 17:06> Radiology Impression Discussion of test interpretation with radiology: I have reviewed the radiologist's reading. <Krystyna Conley DO - Last Filed: 09/17/22 17:06> Discharge Plan Discharge Clinical Impression: Arm paresthesia, right, Fibromyalgia Diarrhea Qualifiers: Diarrhea type: unspecified type Qualified Code(s): R19.7 - Diarrhea, unspecified <WOJCIECH Diaz - Last Filed: 09/17/22 12:03> Patient Disposition: Home, Self-Care <WOJCIECH Diaz - Last Filed: 09/17/22 12:03> Instructions: Fibromyalgia (ED) <WOJCIECH Diaz - Last Filed: 09/17/22 12:03> Additional Instructions: Drink plenty of fluids Medication as prescribed Follow with psychiatrist/neurology <WOJCIECH Diaz - Last Filed: 09/17/22 12:03> Prescriptions: New carisoprodol [Soma] 350 mg tablet 350 mg PO QID PRN (Reason: muscle pain) Qty: 20 0RF clonazepam [Klonopin] 1 mg tablet 1 mg PO BEDTIME Qty: 10 0RF Rx Instructions: administer 30 minutes before bedtime loperamide [Imodium A-D] 2 mg tablet 2 mg PO Q6H PRN (Reason: loose stool) Qty: 14 0RF No Action doxycycline monohydrate 100 mg capsule 100 mg PO BID Qty: 14 0RF cephalexin 500 mg capsule 500 mg PO Q6H 7 Days Qty: 28 0RF citalopram [Celexa] 20 mg tablet 20 mg PO DAILY Qty: 14 0RF lorazepam [Ativan] 0.5 mg tablet 0.5 mg PO BID PRN (Reason: anxiety) Qty: 6 0RF naproxen 500 mg tablet 500 mg PO BID Qty: 14 0RF lidocaine [Lidoderm] 5 % adhesive patch,medicated 1 patch topical DAILY Qty: 15 0RF Rx Instructions: leave on most painful area for up to 12 hrs cyclobenzaprine 10 mg tablet 10 mg PO Q8H PRN (Reason: muscle spasm) Qty: 10 0RF benzonatate [Tessalon Perles] 100 mg capsule 100 mg PO TID PRN (Reason: cough) Qty: 10 0RF cetirizine 10 mg tablet 10 mg PO DAILY Qty: 30 0RF olopatadine [Pataday] 0.2 % drops 1 drp ophthalmic (eye) DAILY PRN (Reason: itching) Qty: 2.5 0RF albuterol sulfate [ProAir HFA] 90 mcg/actuation HFA aerosol inhaler 1 inh inhalation QID PRN (Reason: shortness of breath or wheezing) Qty: 6.7 0RF <WOJCIECH Diaz - Last Filed: 09/17/22 12:03>
[2022-09-17 11:57] VITALS: BP 118/61; PULSE 83; RESP 20; TEMP 36.4; O2SAT 98; BMI 32.5
--- OUTSIDE RECORDS SUMMARY | 2022-09-17 12:30 | XMS_ITS | Continuity of Care Document ---
:1980 Author Organization [facility] Address [address] [place] [id number]- Care Team Providers Name Role Phone Not on Staff, PCP Primary Care Physician Unavailable Encounter [facility] [place] Date(s): 10/24/19 - 10/24/[address] [address]- [facility] Encounter Diagnosis Knee pain, acute (Final) - 10/24/19 Discharge Disposition: A-D/C Home Attending Physician: Yvan Sage DO Admitting Physician: Yvan Sage DO Referring Physician: Not on Staff, Referring MD Allergies, Adverse Reactions, Alerts Substance Reaction Severity Status Zofran Active Medications amoxicillin 875 mg oral tablet 1 tablet = 875 mg, By Mouth, 2 times a day, # 20 tablet, 0 Refills, Maintenance, Tablet Start Date: 10/01/11 Stop Date: 10/11/11 Status: OrderedKlonopin 1 mg oral tablet 1 tablet = 1 mg, By Mouth, 3 times a day, 0 Refills, Maintenance, Tablet Start Date: 10/01/11 Status: Orderedlidocaine 5% topical film 1 patch, Topically, Daily, # 30 patch, 0 Refills, Maintenance, 10/24/19 20:22:00 EST, Patch Start Date: 10/24/19 Stop Date: 11/03/19 Status: OrderedoxyCODONE 5 mg oral capsule 1 capsule = 5 mg, By Mouth, Every 6 hours, PRN as needed for pain, # 10 capsule, 0 Refills, Acute 10/25/19 18:29:00 EST, 10/24/19 18:28:00 EST, Capsule, Partial fill upon patient request Start Date: 10/24/19 Stop Date: 10/25/19 Status: OrderedPrilosec 10 mg oral enteric coated capsule 1 capsule = 10 mg, By Mouth, Daily, # 30 capsule, 0 Refills, Maintenance, EC Capsule Start Date: 10/01/11 Status: OrderedProAir HFA Inhalation, 4 times a day, 0 Refills, Maintenance Start Date: 10/01/11 Status: OrderedSingulair 10 mg oral tablet 1 tablet = 10 mg, By Mouth, Daily in PM, # 30 tablet, 0 Refills, Maintenance, Tablet Start Date: 10/01/11 Status: OrderedTylox 500 mg-5 mg oral capsule 1 capsule, By Mouth, Every 4 hours, PRN Pain, # 10 tablet, 0 Refills, Maintenance, Capsule Start Date: 01/25/10 Status: OrderedWellbutrin SR 150 mg oral tablet, extended release 1 tablet = 150 mg, By Mouth, 2 times a day, # 180 tablet, 0 Refills, Maintenance, ER Tablet Start Date: 10/01/11 Status: Ordered Results Radiology Reports Exam Date Time Procedure Performing Provider Status 10/24/19 4:43 PM Knee 1 or 2 Views Right Rosanne Mcgowan; Auth (V erified) Notes:(Knee 1 or 2 Views Right) Reason For Exam: with Pain;TraumaRESULT: Knee 1 or 2 Views Right Knee 1 or 2 Views Right, 2 views Reason: Trauma; with Pain; Clinical Question(s): Fracture; Hx of Present Illness: Pt is coming in with R Knee pain. Pt has chronic issues w R knee, states it pops 3x day however this time she is unableto ambulate. COMPARISON: None. FINDINGS: There is no evidence of acute or healing fracture, dislocation or bone lesion. No arthritic changes. No osteochondral defects or intra-articular loose bodies. Small suprapatellar joint effusion. IMPRESSION: No fracture. Small suprapatellar joint effusion. WSN: [id number] Dictated By: Kenton Alvarenga MD Dictated Date/Time: 10/24/19 4:50 pm Reviewed By: Kenton Alvarenga MD Signed By: Kenton Alvarenga MD Signed Date/Time: 10/24/19 4:50 pm Transcribed By: ERMIAS Transcribed Date/Time: 10/24/19 4:44 pm Vital Signs Most recent to oldest 1 2 3 [Reference Range]: Weight 100.0 kg 100.0 kg 100.0 kg (10/24/19 8:42 PM) (10/24/19 5:35 PM) (10/24/19 3:04 P M) Oxygen Saturation [94-100 %] 98 % 100 % 96 % (10/24/19 8:42 PM) (10/24/19 5:35 PM) (10/24/19 3:00 P M) Pulse Rate [55-90 bpm] 72 bpm 62 bpm 74 bpm (10/24/19 8:42 PM) (10/24/19 5:35 PM) (10/24/19 3:00 P M) Blood Pressure [90-138/55-84 109/60 mm Hg 106/56 mm Hg 112 /65 mm Hg mm Hg] (10/24/19 8:42 PM) (10/24/19 5:35 PM) (10/24/19 3:00 P M) Respiratory Rate [16-30 18 br/min 18 br/min 20 br/mi n br/min] (10/24/19 8:42 PM) (10/24/19 6:56 PM) (10/24/19 5:35 P M) Temperature [96.8-100.4 98.2 DegF 98.0 DegF 97.5 Deg F DegF] (10/24/19 8:42 PM) (10/24/19 5:35 PM) (10/24/19 3:00 P M) Mode of Delivery (Oxygen) Room air Room air Room a ir (10/24/19 8:42 PM) (10/24/19 5:35 PM) (10/24/19 3:00 P M) Blood pressure sites Arm, right Arm, left Arm, left (10/24/19 8:42 PM) (10/24/19 5:35 PM) (10/24/19 3:00 P M) Temperature Route Oral Oral Oral (10/24/19 8:42 PM) (10/24/19 5:35 PM) (10/24/19 3:00 P M) Dry Weight 100.0 kg 100.0 kg 100.0 kg (10/24/19 8:42 PM) (10/24/19 5:35 PM) (10/24/19 3:04 P M) Weight Obtained Via Patient/family stated (10/24/19 3:00 PM) Dry Weight Obtained Via Patient/family stated (10/24/19 3:00 PM)
[2022-09-17 12:31] LABS: Basophils Absolute Auto 0.1 X10*3/uL (0.0-0.2); Basophils Percent Auto 1.3 % (0-2); Eosinophils Absolute Auto 0.3 X10*3/uL (0.0-0.4); Eosinophils Percent Auto 4.3 % (0-4); Hematocrit 43.9 % (37.0-47.0); Hemoglobin 14.6 g/dl (12.0-16.0); Imm Gran Abs Auto 0.01 X10*3/uL (0.00-0.03); Imm Gran Pct Auto 0.2 % (0.0-0.4); Lymphocytes Absolute Auto 1.8 X10*3/uL (1.2-4.9); Lymphocytes Percent Auto 28.4 % (20-40); MANUAL DIFF FLAG NO; Mean Corpuscular HGB Conc 33.3 g/dl (31.0-35.0); Mean Corpuscular Hemoglobin 29.6 pg (27.0-33.0); Mean Corpuscular Volume 88.9 fL (80.0-98.0); Mean Platelet Volume 10.1 fL (9.4-12.3); Monocytes Absolute Auto 0.7 X10*3/uL (0.1-1.2); Monocytes Percent Auto 10.7 % (2-11); Neutrophils Absolute Auto 3.4 x10*3/uL (2.0-8.3); Neutrophils Percent Auto 55.1 % (45-73); Platelet Count 295 X10*3/uL (160-400); Red Blood Count 4.94 X10*6/uL (4.20-5.50); White Blood Count 6.2 X10*3/uL (4.8-10.8)
[2022-09-17 12:55] LABS: Alanine Aminotransferase 36 U/L (0-31); Albumin Level 4.3 g/dL (3.5-5.0); Alkaline Phosphatase 56 U/L (39-117); Anion Gap 12 (12-20); Aspartate Amino Transferase 24 U/L (5-31); Bilirubin Direct < 0.2 mg/dL (0.0-0.5); Bilirubin Total 0.3 mg/dL (0.0-1.0); Blood Urea Nitrogen 15 mg/dL (9-16); Calcium 9.5 mg/dL (8.4-10.2); Carbon Dioxide 26 mmol/L (22-29); Chloride 105 mmol/L (96-108); Creatinine Clr Calc Pharmacy 89.3; Estimated Glomerular Filt Rate 59; Glucose Random 139 mg/dL (60-115); Lipase 90 U/L (8-78); Magnesium 1.8 mg/dL (1.6-2.6); Potassium 3.9 mmol/L (3.3-5.1); Sodium 139 mmol/L (135-145); Total Protein 7.3 g/dL (6.5-8.0)
[2022-09-17 13:00] LABS: HCG Quantitative < 2 mIU/mL
[2022-09-17 13:19] LABS: Influenza A PCR NEGATIVE (Negative); Influenza B PCR NEGATIVE (Negative); Resp Syncy Virus RNA Qual PCR NEGATIVE (Negative); SARS COV2 PCR INHOUSE NEGATIVE (Negative)
[2022-09-17 15:11] VITALS: BP 122/58; PULSE 64; RESP 18; TEMP 36.5; O2SAT 96
[2022-09-17] MEDS: Metoclopramide HCl 10 MG/2 ML VIAL IVPUSH (15:27)
[2022-09-17] MEDS: diphenhydrAMINE HCL 50 MG/ML VIAL 25 MG IVPUSH (15:27)
[2022-09-17] MEDS: Ketorolac Tromethamine 15 MG/ML VIAL IVPUSH (15:28)
[2022-09-17] MEDS: Lactated Ringers 1,000 ML 999 ML IV (15:29)
[2022-09-17] MEDS: iohexoL 350 MG/ML 100 ML INFUS..BTL IV (15:48)
[2022-09-17] MEDS: Loperamide HCl 2 MG CAPSULE 4 MG PO (17:29)
[2022-09-17] MEDS: carisoprodoL 350 MG TABLET PO (17:29)
[2022-09-17] MEDS: clonazePAM 1 MG TABLET PO (17:29)
== END 2022-09-17 17:35 | disposition home or self-care (01) ==
PROVIDERS: Physician Assistant; Emergency Provider Emergency Medicine
DX: R20.2 Paresthesia of skin (principal); M79.7 Fibromyalgia; R19.7 Diarrhea, unspecified; Z20.828 Contact with and (suspected) exposure to other viral communicable diseases
CPT/HCPCS: 0241U; 36415; 72125; 73030; 74177; 80048; 80076; 83690; 83735; 84702; 85025; 96361; 96374; 96375; 99284; J1200; J1885; J2765; Q9967

== ENCOUNTER 2023-04-30 15:14 | Outpatient (REF) | payer MEDICAID, SELFPAY ==
[2023-05-02 04:12] LABS: Syphilis Screen Nonreactive (Nonreactive)
== END 2023-04-30 15:15 | disposition home or self-care (01) ==
LOC: HO.HHCL 15:14
PROVIDERS: Visit Provider Nurse Practitioner Family
DX: R35.0 Frequency of micturition (principal); A53.0 Latent syphilis, unspecified as early or late
CPT/HCPCS: 36415; 86780; 87086

== ENCOUNTER 2023-05-21 11:58 | Outpatient (AMB) | payer MEDICAID, SELFPAY ==
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
[2023-05-21 13:15] VITALS: BP 136/90; PULSE 70; RESP 18; O2SAT 96; BMI 35.6
== END 2023-05-21 13:42 | disposition home or self-care (01) ==
PROVIDERS: PCP Nurse Practitioner Family; Visit Provider Anesthesiology
DX: M79.7 Fibromyalgia (principal); M47.816 Spondylosis without myelopathy or radiculopathy, lumbar region; M51.36 Other intervertebral disc degeneration, lumbar region
CPT/HCPCS: 99204

== ENCOUNTER → 2023-05-21 11:58 | Outpatient (BNVA) | payer MEDICAID, SELFPAY | PROVIDERS: PCP Nurse Practitioner Family; Visit Provider Anesthesiology ==

== ENCOUNTER 2023-08-25 11:01 | Outpatient (AMB) | payer MEDICAID, SELFPAY ==
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
[2023-08-25 11:08] VITALS: BP 114/60; PULSE 63; RESP 16; O2SAT 96; BMI 38.1
== END 2023-08-25 11:26 | disposition home or self-care (01) ==
PROVIDERS: PCP Nurse Practitioner Family; Visit Provider Anesthesiology
DX: M79.7 Fibromyalgia (principal); M47.816 Spondylosis without myelopathy or radiculopathy, lumbar region; M51.36 Other intervertebral disc degeneration, lumbar region; M06.9 Rheumatoid arthritis, unspecified
CPT/HCPCS: 99214

== ENCOUNTER → 2023-08-25 11:01 | Outpatient (BNVA) | payer MEDICAID, SELFPAY | PROVIDERS: PCP Nurse Practitioner Family; Visit Provider Anesthesiology | DX: M79.7 Fibromyalgia (principal); M47.816 Spondylosis without myelopathy or radiculopathy, lumbar region; M51.36 Other intervertebral disc degeneration, lumbar region; M06.9 Rheumatoid arthritis, unspecified | CPT/HCPCS: 99212 ==

== ENCOUNTER 2023-10-20 14:54 | Emergency (ER) | payer MEDICAID, SELFPAY ==
[2023-10-20 15:43] VITALS: BP 133/61; PULSE 63; RESP 20; TEMP 36.4; O2SAT 96; BMI 39.3
--- NOTE | 2023-10-20 15:44 | ED.LOWEXIN ---
HPI - Extremity Injury (Lower) General Chief Complaint: Extremity Injury, Lower Stated Complaint: R leg pain Time Seen by Provider: 10/20/23 16:03 Source: patient and RN notes reviewed Mode of arrival: ambulatory Limitations: no limitations History of Present Illness HPI Narrative: This is a 43-year-old female, with a history of degenerative disc disease, presenting to the emergency department with complaints of right low back pain and anterior right leg pain x2 weeks. No trauma or injury to her back. States that she is unable to sleep secondary to pain. She was seen by her primary care physician who prescribed her diclofenac without any relief. Denies any urinary or bowel symptoms. No saddle anesthesia. Denies any fevers, chills, chest pain, shortness of breath, abdominal pain, nausea, vomiting or diarrhea. She has a MRI of her back scheduled for this evening at 6:15 a.m. Onset (ago): week(s) Relieving factors: nothing Exacerbating factors: nothing Other symptoms: none Related Data Home Medications Medication Instructions Recorded Confirmed fluoxetine 20 mg capsule 20 mg PO QAM 05/21/23 fluoxetine 40 mg capsule 40 mg PO QAM 05/21/23 omeprazole 40 mg capsule,delayed 40 mg PO QAM 05/21/23 release propranolol 10 mg tablet 10 mg PO TID 05/21/23 quetiapine 25 mg tablet 25 mg PO BEDTIME 05/21/23 quetiapine 50 mg tablet 50 mg PO QAM 05/21/23 sumatriptan succinate 25 mg tablet 25 mg PO migraine 05/21/23 Previous Rx's Medication Instructions Recorded albuterol sulfate 90 mcg/actuation 1 inh inhalation QID PRN shortness 06/22/20 aerosol inhaler (ProAir HFA) of breath or wheezing #6.7 grams cetirizine 10 mg tablet 10 mg PO DAILY #30 tabs 06/22/20 loperamide 2 mg tablet (Imodium 2 mg PO Q6H PRN loose stool #14 09/17/22 A-D) tabs cyclobenzaprine 10 mg tablet 10 mg PO TID PRN muscle spasm #10 09/18/22 tabs gabapentin 800 mg tablet 800 mg PO TID 30 days #90 tabs 08/25/23 ibuprofen 400 mg tablet 400 mg PO Q8H PRN pain 30 days #90 08/25/23 tabs ketorolac 10 mg tablet 10 mg PO Q8H 3 days #9 tabs 10/20/23 lidocaine 5 % topical patch 1 patch topical DAILY #30 ea 10/20/23 methocarbamol 750 mg tablet 750 mg PO Q8H 72 hours #9 tabs 10/20/23 Allergies Allergy/AdvReac Type Severity Reaction Status Date / Time tramadol [TRAMADOL] Allergy Intermediate DIARRHEA Verified 08/25/23 11:08 ondansetron AdvReac Mild NAUSEA & Verified 08/25/23 11:08 [From ZOFRAN ( VOMITING HYDROCHLORIDE)] Review of Systems Review of Systems: Yes all other systems are reviewed and are negative Constitutional: Constitutional: Reports as per [facility] Past Medical History Attestation statement: The following information was validated with the patient. Medical History Migraines Anxiety Social History Social History Alcohol intake: unknown Patient Tobacco Use Status: Tobacco use Unknown Smoked in Last 30 Days: Yes Advance Directives: No Advance Directives Information Provided: No Patient : No Physical Exam Vital Signs: Vital Signs: Last Vital Signs Temp 97.5 F 10/20/23 15:43 Pulse 63 10/20/23 15:43 Resp 20 10/20/23 15:43 BP 133/61 10/20/23 15:43 Pulse Ox 96 10/20/23 15:43 O2 Del Method Room Air 10/20/23 15:43 BMI result Body Mass Index 39.3 Const: General: cooperative, comfortable and no acute distress Orientation/consciousness: patient oriented x3 Limitations: no limitations HEENT: Head: Yes normal to inspection, Yes normocephalic and Yes atraumatic Ears: hearing grossly normal bilaterally General nose exam: Normal external nose present Face and sinus: Yes normal facial exam Mouth: Normal oral and palatal mucosa present, oropharynx normal and moist mucous membranes Throat: Yes posterior oropharynx normal Eyes: General: appearance normal, both eyes and all related structures Eyelids: Yes eyelids normal Conjunctivae: conjunctivae normal Sclerae: sclerae normal Pupils: Equal, round and reactive pupils present EOM: EOMs intact bilaterally Neck: Neck: Yes normal visual inspection, Yes full ROM and Yes no lymphadenopathy Lymphatic: no lymphadenopathy noted Chest: Chest palpation & inspection: normal inspection of the chest Resp: Effort & Inspection: normal respiratory effort and able to speak in complete sentences Auscultation: clear to auscultation bilaterally, no crackles, no rales, no rhonchi and no wheezes Cardio: Rate: regular rate Rhythm: regular rhythm Heart sounds: S1 normal heart sound present and S2 normal heart sound present GI: Other: Abdomen is soft, nontender, nondistended Inspection: Yes normal to inspection Back/Spine/Pelvis: Other: Tenderness palpation along the right SI joint extending all the way throughout her right anterior thigh, no overlying skin changes, no calf tenderness, distal sensation circulation intact, strength 5/5 Skin: General skin exam: no rashes or lesions noted Trauma: no lacerations or abrasions Wounds: no wounds Neuro: General: patient oriented x3 and moves all extremities Cranial nerves: Yes Equal, round and reactive pupils present Extrem: General: Yes normal to inspection Right upper extremity: normal to inspection Left upper extremity: normal to inspection Right lower extremity: normal to inspection Left lower extremity: normal to inspection Course Course Course Narrative: This is an RME: Additional HPI, ROS, PE not included below will be deferred to primary provider. Plan: Medications Administered Discontinued Medications Generic Name Dose Route Start Last Admin Trade Name Freq PRN Reason Stop Dose Admin Ketorolac Tromethamine 30 mg 10/20/23 15:57 10/20/23 16:02 Ketorolac Tromethamine 30 Mg/Ml Vial IM 10/20/23 15:58 30 mg ONCE ONE Administration Lidocaine 1 patch 10/20/23 15:57 10/20/23 16:02 Lidocaine 4 % Patch Adh..Patch TRANSDERMA 10/20/23 15:58 1 patch ONCE ONE Administration Protocol Medical Decision Making Medical Decision Making [facility] Narrative: 43-year-old female, with a history of fibromyalgia, and degenerative disc disease, presenting to the emergency department with ongoing right lower back pain into her right leg for the last 2 weeks. She has been using diclofenac gel without any relief. No known trauma or injury. On arrival, vital signs within normal limits. Patient has tenderness to palpation along the right SI joint. Abdomen is soft nontender. This patient presents with back pain most consistent with lumbar radiculopathy. Differential diagnoses includes lumbago versus musculoskeletal spasm / strain versus sciatica.No back pain red flags on history or physical. Presentation not consistent with malignancy (lack of history of malignancy, lack of B symptoms), fracture (no trauma, no bony tenderness to palpation), cauda equina (no bowel or urinary incontinence/retention, no saddle anesthesia, no distal weakness),pyelonephritis (afebrile, no CVAT, no urinary symptoms). Given the clinical picture, no indication for imaging at this time. Patient has an MRI scheduled for this evening, treated patient with ketorolac and lidocaine patches. Discharged on muscle relaxants. Advised to follow with pain management. Given return precautions. Patient stable for discharge. Differential Diagnosis Differential Diagnoses: The differential diagnosis associated with the presentation includes See above Discharge Plan Discharge Clinical Impression: Lumbar radiculopathy, right Patient Disposition: Home, Self-Care Instructions: Acute Low Back Pain (ED), Back Pain (ED), Lower Back Exercises (ED) Additional Instructions: Your seen in the emergency department due to right leg pain. Please go to your scheduled MRI this evening. We medicated you with Toradol, this is a medication similar to ibuprofen, which helps with anti-inflammatory processes. Do not take naproxen, ibuprofen or any other NSAIDs as this increases your risk for bleeding I am prescribing lidocaine patches, use as directed, do not apply heat or ice directly to the patch. I am also prescribing you muscle relaxants, please take as prescribed, and please be advised that this can cause drowsiness, do not drink alcohol or drive while taking this medication. If any new or worsening symptoms occur including but not limited to chest pain, shortness of breath, swelling in your legs, please return for re-evaluation. Prescriptions: New ketorolac 10 mg tablet 10 mg PO Q8H 3 Days Qty: 9 0RF methocarbamol 750 mg tablet 750 mg PO Q8H 3 Days Qty: 9 0RF lidocaine 5 % adhesive patch,medicated 1 patch topical DAILY Qty: 30 0RF Rx Instructions: leave on most painful area for up to 12 hrs No Action cetirizine 10 mg tablet 10 mg PO DAILY Qty: 30 0RF albuterol sulfate [ProAir HFA] 90 mcg/actuation HFA aerosol inhaler 1 inh inhalation QID PRN (Reason: shortness of breath or wheezing) Qty: 6.7 0RF loperamide [Imodium A-D] 2 mg tablet 2 mg PO Q6H PRN (Reason: loose stool) Qty: 14 0RF cyclobenzaprine 10 mg tablet 10 mg PO TID PRN (Reason: muscle spasm) Qty: 10 0RF propranolol 10 mg tablet 10 mg PO TID fluoxetine 20 mg capsule 20 mg PO QAM sumatriptan succinate 25 mg tablet 25 mg PO omeprazole 40 mg capsule,delayed release(DR/EC) 40 mg PO QAM fluoxetine 40 mg capsule 40 mg PO QAM quetiapine 50 mg tablet 50 mg PO QAM quetiapine 25 mg tablet 25 mg PO BEDTIME gabapentin 800 mg tablet 800 mg PO TID 30 Days Qty: 90 8RF ibuprofen 400 mg tablet 400 mg PO Q8H PRN (Reason: pain) 30 Days Qty: 90 4RF Interventions: ED Discharge Assessment Last Done: 10/20/23 16:17 Discharge Date/Time: 10/20/23 16:19
[2023-10-20] MEDS: Ketorolac Tromethamine 30 MG/ML VIAL IM (16:02)
[2023-10-20] MEDS: Lidocaine 4 % Patch ADH..PATCH 1 PATCH TRANSDERMA (16:02)
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
== END 2023-10-20 16:19 | disposition home or self-care (01) ==
PROVIDERS: Emergency Provider Emergency Medicine; PCP Nurse Practitioner Family
DX: M54.16 Radiculopathy, lumbar region (principal)
CPT/HCPCS: 96372; 99284; J1885

== ENCOUNTER 2023-10-20 17:49 | Outpatient (REF) | payer MEDICAID, SELFPAY ==
--- NOTE | ~2023-10-20 | MR_ITS ---
EXAMINATION: MR LUMBAR SPINE WITHOUT CONTRAST CLINICAL INFORMATION: Lumbar spondylolisthesis. COMPARISON: CT abdomen and pelvis from 09/17/2022. TECHNIQUE: MRI of the lumbar spine was obtained using routine sequences without contrast. FINDINGS: Mild degenerative retrolistheses of L3 on L4 and L5 on S1. Otherwise, normal anatomic alignment. Mild degenerative disc disease from L3-S1. Associated minimal Modic type I discogenic edema at L3-L4. Mild marrow edema within the L3-L5 facets consistent with degenerative stress reaction. No additional suspicious marrow edema. The vertebral body heights are well-maintained. The conus medullaris terminates at the level of L1-L2. The distal spinal cord is normal in appearance. Moderate subcutaneous edema within the posterior soft tissues the back from T12-S3. No additional significant abnormalities of the paraspinal musculature. Limited evaluation of the intra-abdominal structures without significant abnormalities. The abdominal aorta is of normal contour and caliber. AXIAL SPINAL LEVELS: L1-L2: Normal annular contour. There is no facet joint arthropathy. There is no neural foraminal stenosis. There is no spinal canal stenosis. L2-L3: Normal annular contour. There is no facet joint arthropathy. There is no neural foraminal stenosis. There is no spinal canal stenosis. L3-L4: Mild diffuse disc bulge with superimposed central/right reticular disc extrusion with slight inferior migration. There is moderate bilateral facet joint arthropathy. There is mild bilateral neural foraminal stenosis. There is stenosis of the right worse than left subarticular zones with moderate spinal canal stenosis centrally. L4-L5: Shallow diffuse disc bulge with superimposed left foraminal disc protrusion. There is severe bilateral facet joint arthropathy. There is moderate left and mild right neural foraminal stenosis. There is narrowing of the left worse than right subarticular zones with no overt spinal canal stenosis centrally. L5-S1: Mild diffuse disc bulge with superimposed small left subarticular/foraminal disc protrusion. There is mild left and no right facet joint arthropathy. There is moderate bilateral neural foraminal stenosis. There is mild narrowing of the left subarticular zone with no overt spinal canal stenosis centrally. MR/MR lumbar spine wo con IMPRESSION: Moderate multilevel degenerative spondyloarthropathy of the lumbar spine as described in detail above. Most notably, there is a disc extrusion at L3-L4 leading to moderate spinal canal stenosis. Narrowing/stenoses of the subarticular zones from L3-S1. Moderate neural foraminal stenoses at L4-L5 and L5-S1.
== END 2023-10-20 17:50 | disposition home or self-care (01) ==
LOC: HO.MRI 17:49
PROVIDERS: PCP Nurse Practitioner Family; Visit Provider Anesthesiology
DX: M47.816 Spondylosis without myelopathy or radiculopathy, lumbar region (principal); M51.36 Other intervertebral disc degeneration, lumbar region
CPT/HCPCS: 72148

== ENCOUNTER 2024-01-07 18:22 | Outpatient (REF) | payer MEDICAID, SELFPAY ==
[2024-01-09 21:09] LABS: C. trachomatis RNA TMA NOT DETECTED (NOT DETECTED); N. gonorrhoeae RNA TMA NOT DETECTED (NOT DETECTED)
[2024-01-12 21:12] LABS: HPV mRNA E6/E7 rflx Not Detected (Not Detected)
[2024-01-13 09:14] LABS: C. trachomatis RNA TMA NOT DETECTED (NOT DETECTED); N. gonorrhoeae RNA TMA NOT DETECTED (NOT DETECTED)
== END 2024-01-07 18:23 | disposition home or self-care (01) ==
LOC: HO.HHCLNP 18:22
PROVIDERS: Visit Provider Nurse Practitioner Family
DX: N89.8 Other specified noninflammatory disorders of vagina (principal)
CPT/HCPCS: 36415; 81513; 87491; 87591; 87624; 88142

== ENCOUNTER → 2024-01-15 14:05 | Outpatient (BNVA) | payer MEDICAID, SELFPAY | PROVIDERS: PCP Nurse Practitioner Family; Visit Provider Physician Assistant Surgical ==

== ENCOUNTER 2024-01-22 15:12 | Outpatient (AMB) | payer MEDICAID, SELFPAY ==
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
== END 2024-01-22 15:36 | disposition home or self-care (01) ==
LOC: HO.PMC 15:12
PROVIDERS: PCP Nurse Practitioner Family; Referring Provider Nurse Practitioner Family; Visit Provider Anesthesiology
DX: M47.816 Spondylosis without myelopathy or radiculopathy, lumbar region (principal); M51.36 Other intervertebral disc degeneration, lumbar region; M54.51 Vertebrogenic low back pain; M79.7 Fibromyalgia
CPT/HCPCS: 99214

== ENCOUNTER → 2024-01-22 15:12 | Outpatient (BNVA) | payer MEDICAID, SELFPAY | PROVIDERS: PCP Nurse Practitioner Family; Visit Provider Anesthesiology | DX: M47.816 Spondylosis without myelopathy or radiculopathy, lumbar region (principal); M51.36 Other intervertebral disc degeneration, lumbar region; M54.51 Vertebrogenic low back pain; M79.7 Fibromyalgia | CPT/HCPCS: 99212 ==

== ENCOUNTER 2024-02-18 04:59 | Emergency (ER) | payer MEDICAID, SELFPAY ==
[2024-02-18 05:03] VITALS: BP 132/88; PULSE 81; O2SAT 98
[2024-02-18 05:07] VITALS: BP 95/70; PULSE 75; RESP 18; TEMP 37.4; O2SAT 100; BMI 37.7
[2024-02-18 05:46] VITALS: BP 121/75; PULSE 67; RESP 16; TEMP 36.7; O2SAT 96
--- NOTE | 2024-02-18 06:46 | ED.GENADULT ---
HPI - General Adult General Chief complaint: General Medical Stated complaint: RASH X4W S/P TAKING WEGOVY & A BODY WASH PER EMS Time Seen by Provider: 02/18/24 06:31 Source: patient Mode of arrival: ambulatory Limitations: no limitations History of Present Illness ED Provider: Chandan Musa PA-C HPI narrative: 43 yo female presenting to the ER for evaluation of severe itching all over her body for the last 4 weeks, worse in the last few days. Patient has not been sleeping due to severe itching. She has tried benadryl and clairitin with minimal relief. She reports new medications including Wegovy and Robaxin. She also has had new soaps. She denies any hives or swollen areas. She is scratching so hard that she is causing open wounds on her feet and arms. She denies any swelling of her face or mouth. No difficulty speaking or swallowing. She reports history of detergent allergy in the past that responded well to Medrol dose pack. She denies any heroin or fentanyl use. MD complaint: Itching all over Onset (ago): week(s) Location: left, right, upper extremity and lower extremity Radiation: proximal Severity: severe Quality: other (Pruritic) Pain Consistency: constant Relieving factors: none Exacerbating factors: none Associated symptoms: other (Anxiety) Treatments prior to arrival: none Related Data Home Medications ?Medication ?Instructions ?Recorded ?Confirmed fluoxetine 20 mg capsule 20 mg PO QAM 05/21/23 fluoxetine 40 mg capsule 40 mg PO QAM 05/21/23 omeprazole 40 mg capsule,delayed 40 mg PO QAM 05/21/23 release propranolol 10 mg tablet 10 mg PO TID 05/21/23 quetiapine 25 mg tablet 25 mg PO BEDTIME 05/21/23 quetiapine 50 mg tablet 50 mg PO QAM 05/21/23 sumatriptan succinate 25 mg tablet 25 mg PO migraine 05/21/23 Previous Rx's ?Medication ?Instructions ?Recorded albuterol sulfate 90 mcg/actuation 1 inh inhalation QID PRN shortness 06/22/20 aerosol inhaler (ProAir HFA) of breath or wheezing #6.7 grams cetirizine 10 mg tablet 10 mg PO DAILY #30 tabs 06/22/20 loperamide 2 mg tablet (Imodium 2 mg PO Q6H PRN loose stool #14 09/17/22 A-D) tabs cyclobenzaprine 10 mg tablet 10 mg PO TID PRN muscle spasm #10 09/18/22 tabs gabapentin 800 mg tablet 800 mg PO TID 30 days #90 tabs 08/25/23 ibuprofen 400 mg tablet 400 mg PO Q8H PRN pain 30 days #90 08/25/23 tabs ketorolac 10 mg tablet 10 mg PO Q8H 3 days #9 tabs 10/20/23 lidocaine 5 % topical patch 1 patch topical DAILY #30 ea 10/20/23 methocarbamol 750 mg tablet 750 mg PO Q8H 30 days #90 tabs 01/22/24 diphenhydramine HCl 50 mg tablet 50 mg PO Q6H PRN itching #20 tabs 02/18/24 (Benadryl Allergy) famotidine 40 mg tablet (Pepcid) 40 mg PO DAILY #14 tabs 02/18/24 lorazepam 1 mg tablet (Ativan) 1 mg PO BID PRN anxiety #6 tabs 02/18/24 methylprednisolone 4 mg tablets in 4 mg PO DAILY #21 ea 02/18/24 a dose pack (Methylpred DP) Allergies Allergy/AdvReac Type Severity Reaction Status Date / Time tramadol [TRAMADOL] Allergy Intermediate DIARRHEA Verified 02/18/24 05:13 ondansetron AdvReac Mild NAUSEA & Verified 02/18/24 05:13 [From ZOFRAN ( VOMITING HYDROCHLORIDE)] Review of Systems Review of Systems: Yes all other systems are reviewed and are negative PMFSH Past Medical History Medical History Migraines Anxiety Social History Social History Alcohol intake: never Patient Tobacco Use Status: Tobacco use Unknown Smoked in Last 30 Days: Yes Use of substances other than those prescribed or required for medical reasons: No Advance Directives: No Advance Directives Information Provided: Yes Patient : No Physical Exam ED Vital Signs: Vital Signs - 24 hr 02/18/24 05:07 02/18/24 05:46 02/18/24 07:50 Temperature 99.3 F 98.1 F 98.4 F Pulse Rate 75 67 60 Respiratory Rate 18 16 14 Blood Pressure 95/70 121/75 114/63 Pulse Oximetry 100 96 95 Oxygen Delivery Method Room Air Room Air Room Air BMI result Body Mass Index 37.7 Appearance: Alert. Oriented X3. Hyperventilating and itching all over Head: normocephalic, atraumatic. Eyes: Pupils equal, round and reactive to light. ENT: Pharynx normal. No tonsillar swelling or exudate. Neck: Normal inspection. Neck supple. CVS: Normal heart rate and rhythm. Pulses normal. Respiratory: No respiratory distress. Breath sounds normal. Abdomen: Soft and nontender. +BS x4 Skin: Skin warm and dry. Normal skin color. Normal skin turgor. Excoriated areas on the bilateral forearms and bilateral feet with open areas from scratching. No hives or urticarial rashes. Extremities: No lower extremity edema. No joint swelling. Neuro/psych: Oriented X 3. Anxious No motor deficit. No sensory deficit. CN II-XII intact. Normal speech and cognition. Medications Administered Discontinued Medications Generic Name Dose Route Start Last Admin Trade Name Freq PRN Reason Stop Dose Admin Diphenhydramine HCl 50 mg 02/18/24 06:50 02/18/24 07:03 Diphenhydramine Hcl 50 Mg/Ml Vial IM 02/18/24 06:51 50 mg ONCE ONE Administration Famotidine 20 mg 02/18/24 06:54 02/18/24 07:02 Famotidine 20 Mg Tablet PO 02/18/24 06:55 20 mg ONCE ONE Administration Lorazepam 1 mg 02/18/24 06:50 02/18/24 07:02 Lorazepam 1 Mg Tablet PO 02/18/24 06:51 1 mg ONCE ONE Administration Medical Decision Making Medical Decision Making [facility] Narrative: 43-year-old female with history of psoriasis, rheumatoid arthritis, fibromyalgia, chronic low back pain who is presenting to the ER for evaluation of severe itching all over her body for the last several weeks, worsened in the last 24-48 hours to the point where she has no longer sleeping. No response to Benadryl or Claritin per her report. On evaluation patient is anxious, hyperventilating and scratching all over her body. She is causing open excoriations to her feet and arms. Intramuscular Benadryl was given along with anxiolytic with good effect. Patient is stable for discharge home with course of steroids, ongoing Benadryl, will add Pepcid and refer to Dermatology for further evaluation and treatment if no improvement. Differential Diagnosis Differential Diagnoses: The differential diagnosis associated with the presentation includes Idiopathic urticaria, anaphylaxis, allergic reaction, hypersensitivity, dermatitis, adverse drug reaction Independent Historian Clinical information obtained from an independent historian. History obtained from or confirmed by: EMS External Record Review External record reviewed: Outpatient record and Prior outpatient labs Tests considered The following testing was considered but not selected: Consider checking LFTs as cause of pruritus, no evidence of jaundice on examination Prescription Management I considered prescription management with: Other (Antihistamine) Chronic Conditions Patient?s care impacted by: Other (Anxiety, fibromyalgia) Critical Care Time Critical Care Time Critical Care Time: No Discharge Plan Discharge Clinical Impression: Pruritus Patient Disposition: Home, Self-Care Instructions: Itchy Skin (ED) Additional Instructions: Take the Medrol Dosepak as prescribed on the package. Recommend continuing Benadryl every 6 hours as needed for itching. Do your best not to itch, apply ice or take a cold shower. Follow-up with your doctor. If you have ongoing issues, recommend calling the following Dermatology office for evaluation and treatment: [facility] at [address] [place] [address]. Phone number is [phone] If you develop new or worsening symptoms call 911 or come back to the ER for further evaluation. Prescriptions: New methylprednisolone [Methylpred DP] 4 mg tablets,dose pack 4 mg PO DAILY Qty: 21 0RF Benadryl Allergy 50 mg tablet 50 mg PO Q6H PRN (Reason: itching) Qty: 20 0RF famotidine [Pepcid] 40 mg tablet 40 mg PO DAILY Qty: 14 0RF lorazepam [Ativan] 1 mg tablet 1 mg PO BID PRN (Reason: anxiety) Qty: 6 0RF No Action cetirizine 10 mg tablet 10 mg PO DAILY Qty: 30 0RF albuterol sulfate [ProAir HFA] 90 mcg/actuation HFA aerosol inhaler 1 inh inhalation QID PRN (Reason: shortness of breath or wheezing) Qty: 6.7 0RF loperamide [Imodium A-D] 2 mg tablet 2 mg PO Q6H PRN (Reason: loose stool) Qty: 14 0RF cyclobenzaprine 10 mg tablet 10 mg PO TID PRN (Reason: muscle spasm) Qty: 10 0RF ketorolac 10 mg tablet 10 mg PO Q8H 3 Days Qty: 9 0RF lidocaine 5 % adhesive patch,medicated 1 patch topical DAILY Qty: 30 0RF Rx Instructions: leave on most painful area for up to 12 hrs propranolol 10 mg tablet 10 mg PO TID fluoxetine 20 mg capsule 20 mg PO QAM sumatriptan succinate 25 mg tablet 25 mg PO omeprazole 40 mg capsule,delayed release(DR/EC) 40 mg PO QAM fluoxetine 40 mg capsule 40 mg PO QAM quetiapine 50 mg tablet 50 mg PO QAM quetiapine 25 mg tablet 25 mg PO BEDTIME gabapentin 800 mg tablet 800 mg PO TID 30 Days Qty: 90 8RF ibuprofen 400 mg tablet 400 mg PO Q8H PRN (Reason: pain) 30 Days Qty: 90 4RF methocarbamol 750 mg tablet 750 mg PO Q8H 30 Days Qty: 90 8RF Stand Alone Forms: Work/School Release Print Language: Japanese
[2024-02-18] MEDS: LORazepam 1 MG TABLET PO (07:02)
[2024-02-18] MEDS: Famotidine 20 MG TABLET PO (07:02)
[2024-02-18] MEDS: diphenhydrAMINE HCL 50 MG/ML VIAL IM (07:03)
[2024-02-18 07:50] VITALS: BP 114/63; PULSE 60; RESP 14; TEMP 36.9; O2SAT 95
[2024-02-18 08:09] VITALS: BP 114/63; PULSE 60; RESP 14; TEMP 36.9; O2SAT 95
== END 2024-02-18 08:09 | disposition home or self-care (01) ==
PROVIDERS: Emergency Provider Emergency Medicine; PCP Nurse Practitioner Family
DX: L29.9 Pruritus, unspecified (principal)
CPT/HCPCS: 96372; 99284; J1200

== ENCOUNTER 2024-04-09 12:35 | Emergency (ER) | payer MEDICAID, SELFPAY ==
--- NOTE | ~2024-04-09 | CT_ITS ---
EXAMINATION: CT ABDOMEN AND PELVIS WITH CONTRAST CLINICAL INFORMATION: Left lower quadrant pain. COMPARISON: 09/17/2022 TECHNIQUE: Multidetector volumetric images were obtained from the superior aspect of the liver through the pubic symphysis following administration 85 mL of Omnipaque 350 intravenous contrast. Sagittal and coronal reformatted images were obtained on the technologist's workstation. Oral contrast: No This CT examination was performed using dose optimization techniques as appropriate, variously including the following: *Automated exposure control *Adjustment of mA and/or kV according to patient size (this includes techniques or standardized protocols for targeted exams where dose is matched to indication/reason for exam; i.e. extremities or head) *Use of iterative reconstruction technique DLP: 1037 mGy-cm FINDINGS: LUNG BASES: No pleural or pericardial effusion. LIVER, GALLBLADDER, AND BILIARY TREE: The liver is decreased in attenuation. No focal hepatic lesion or biliary ductal dilatation is present. The gallbladder is unremarkable with no evidence of radiopaque gallstones, gallbladder wall thickening, or obvious pericholecystic inflammatory changes. PANCREAS: Unremarkable. SPLEEN: Unremarkable. ADRENAL GLANDS: Unremarkable. KIDNEYS AND URETERS: The kidneys are symmetric in size and enhancement. No perinephric process. No perinephric stranding. BLADDER: Unremarkable. GASTROINTESTINAL TRACT: Diverticular disease of the colon. No small bowel obstruction. The appendix is not visualized. ABDOMINAL WALL: Fat-containing umbilical hernia. LYMPH NODES: No bulky lymphadenopathy. VASCULAR: Normal caliber abdominal aorta. PELVIC VISCERA: Unremarkable. OSSEOUS STRUCTURES: No destructive bone lesions. CT/CT abdomen pelvis w IV con IMPRESSION: No acute abnormality in the abdomen or pelvis. Hepatic steatosis. Colonic diverticulosis.
--- NOTE | 2024-04-09 12:41 | ED.GENADULT ---
HPI - General Adult General Chief complaint: Abdominal Pain Stated complaint: lower L abd and back pain Time Seen by Provider: 04/09/24 13:12 Source: patient Mode of arrival: ambulatory Limitations: no limitations History of Present Illness HPI narrative: Patient is a 44-year-old female who presents emergency department for evaluation of left lower quadrant abdominal pain radiating to the left flank. Onset was 2 weeks ago. Became suddenly much more severe last night. She admits to feeling fullness in her bladder even after urination but denies dysuria, hematuria, frequency. Has nausea but no associated vomiting. Denies fevers, chills, diarrhea, constipation, hematochezia, melena. Reports a history of chronic back pain for which she is being followed by pain management, but states that it is not typical for her pain to go into her lower abdomen. Additionally she states ?I do not think this is my back pain I think it is my kidney she however denies any renal history. She is status post appendectomy, denies possibility of stating she is paced menopausal but does not recall the date of her last menstrual period. She appears in significant pain, she is crying, having difficulty sitting still. Related Data Home Medications ?Medication ?Instructions ?Recorded ?Confirmed fluoxetine 20 mg capsule 20 mg PO QAM 05/21/23 fluoxetine 40 mg capsule 40 mg PO QAM 05/21/23 omeprazole 40 mg capsule,delayed 40 mg PO QAM 05/21/23 release propranolol 10 mg tablet 10 mg PO TID 05/21/23 quetiapine 25 mg tablet 25 mg PO BEDTIME 05/21/23 quetiapine 50 mg tablet 50 mg PO QAM 05/21/23 sumatriptan succinate 25 mg tablet 25 mg PO migraine 05/21/23 Previous Rx's ?Medication ?Instructions ?Recorded albuterol sulfate 90 mcg/actuation 1 inh inhalation QID PRN shortness 06/22/20 aerosol inhaler (ProAir HFA) of breath or wheezing #6.7 grams cetirizine 10 mg tablet 10 mg PO DAILY #30 tabs 06/22/20 loperamide 2 mg tablet (Imodium 2 mg PO Q6H PRN loose stool #14 09/17/22 A-D) tabs cyclobenzaprine 10 mg tablet 10 mg PO TID PRN muscle spasm #10 09/18/22 tabs gabapentin 800 mg tablet 800 mg PO TID 30 days #90 tabs 08/25/23 ibuprofen 400 mg tablet 400 mg PO Q8H PRN pain 30 days #90 08/25/23 tabs ketorolac 10 mg tablet 10 mg PO Q8H 3 days #9 tabs 10/20/23 lidocaine 5 % topical patch 1 patch topical DAILY #30 ea 10/20/23 methocarbamol 750 mg tablet 750 mg PO Q8H 30 days #90 tabs 01/22/24 diphenhydramine HCl 50 mg tablet 50 mg PO Q6H PRN itching #20 tabs 02/18/24 (Benadryl Allergy) famotidine 40 mg tablet (Pepcid) 40 mg PO DAILY #14 tabs 02/18/24 lorazepam 1 mg tablet (Ativan) 1 mg PO BID PRN anxiety #6 tabs 02/18/24 methylprednisolone 4 mg tablets in 4 mg PO DAILY #21 ea 02/18/24 a dose pack (Methylpred DP) dicyclomine 10 mg capsule 10 mg PO TID #20 caps 04/09/24 Allergies Allergy/AdvReac Type Severity Reaction Status Date / Time tramadol [TRAMADOL] Allergy Intermediate DIARRHEA Verified 04/09/24 12:47 methocarbamol [From Robaxin] Allergy Hives Verified 04/09/24 12:47 ondansetron AdvReac Mild NAUSEA & Verified 04/09/24 12:47 [From ZOFRAN ( VOMITING HYDROCHLORIDE)] Review of Systems Review of Systems: Yes all other systems are reviewed and are negative PMFSH Past Medical History Attestation statement: The following information was validated with the patient. Source: old records reviewed Medical History Migraines Anxiety Social History Social History Alcohol intake: never Patient Tobacco Use Status: Tobacco use Unknown Advance Directives: No Advance Directives Information Provided: Yes Do you have a plan to hurt others: No Plan Physical Exam ED Vital Signs: Vital Signs - 24 hr 04/09/24 12:45 04/09/24 15:38 04/09/24 17:32 Temperature 98.4 F 98.4 F 98.4 F Pulse Rate 74 61 61 Respiratory Rate 18 16 16 Blood Pressure 110/72 112/68 112/68 Pulse Oximetry 96 95 95 Oxygen Delivery Method Room Air Room Air Room Air BMI result Body Mass Index 37.1 Appearance: Alert.?Oriented to person, place and time. No acute distress.?Normal affect. Eyes: Pupils equal, round and reactive to light.? ENT: Pharynx normal.?? Neck: Normal inspection.? Neck supple.?? CVS: Heart sounds normal. Normal heart rate and rhythm.? Pulses normal.?? Respiratory: No respiratory distress.? Lung sounds clear to auscultation bilaterally?? Abdomen: Soft, round, nondistended, no rigidity or guarding. Has tenderness upon palpation to the left lower quadrant and left flank. Normoactive bowel sounds. No pulsatile mass.?? Skin: Skin warm and dry.? Normal skin color.? No rashes or abrasions? Extremities: No lower extremity edema. Neuro: Moves all extremities spontaneously. Sensation intact bilaterally. Ambulates with normal steady gait. Course Course Course Narrative: This is a Rapid Medical Examination (RME) performed by Ricco Denise PA-C in triage. Full HPI, ROS, assessment and treatment plan per primary provider in the Main ED. 44 female constant sharp/ dull LLQ and L flank pain x2 weeks. admits to associated bladder fullness and nausea w/o vomiting. denies dysuria, hematuria, fever/chills, diarrhea, constipation. no injury or trauma. took Motrin last night w/o relief. she is post menopausal. no hx of renal stones. s/p appendectomy. no other abdominal surgeries. + obese abd, soft, ND, ttp of LLQ w/o rebound or guarding. no CVAT. Plan: labs, UA, +/- imaging per primary provider Reevaluation(s) Reevaluation #1: CT without evidence of acute pathology, hepatic steatosis and diverticulosis but no evidence of diverticulitis. Ketorolac did not relieve her pain. She received IV morphine and has had resolution of her pain. On re-evaluation she is noted to be lying prone on her phone. Is no longer tearful. She is eating and drinking without difficulty. At this time I feel that she is stable for discharge home, will trial course of dicyclomine and follow-up with her primary care provider. Discussed worrisome signs and symptoms that would warrant re-evaluation in the emergency department. All questions answered. Medications Administered Discontinued Medications Generic Name Dose Route Start Last Admin Trade Name Luca PRN Reason Stop Dose Admin Sodium Chloride 1,000 mls @ 999 mls/hr 04/09/24 13:45 04/09/24 15:09 Ns IV 04/09/24 14:45 Infused .Q1H1M ROSA Infusion Iohexol 100 ml 04/09/24 14:43 04/09/24 14:43 Iohexol 350 Mg/Ml 100 Ml Infus..Btl IV 04/09/24 14:44 85 ml ONCE ONE Administration Ketorolac Tromethamine 30 mg 04/09/24 13:37 04/09/24 13:58 Ketorolac Tromethamine 30 Mg/Ml Vial IVPUSH 04/09/24 13:38 30 mg ONCE ONE Administration Metoclopramide HCl 10 mg 04/09/24 13:37 04/09/24 13:58 Metoclopramide Hcl 10 Mg/2 Ml Vial IVPUSH 04/09/24 13:38 10 mg ONCE ONE Administration Morphine Sulfate 4 mg 04/09/24 15:37 04/09/24 15:41 Morphine Sulfate 4 Mg/Ml Cartridge IVPUSH 04/09/24 15:38 4 mg ONCE ONE Administration Protocol Medical Decision Making Medical Decision Making MDM Narrative: Patient is a 44-year-old female past medical history rheumatoid arthritis, fibromyalgia, degenerative disc disease spondylosis of the lumbar spine presenting to emergency department for evaluation of left lower quadrant abdominal pain and flank pain as per HPI. She appears uncomfortable at the time of my examination, has tenderness in the left lower quadrant over the left flank even with minimal palpation. She has no rigidity or guarding. She follows with pain management for chronic back pain, has L3-L4 disc extrusion with moderate canal stenosis found on an MRI in October of 2023, reviewed pain management note from 02/02/2024 she was offered Intercept procedure, however patient states she does not think she will pursue this. She states ?I am waiting on a new pain medication? as she had a reaction to methocarbamol recently. Reviewed serum labs obtained prior to my assumption of care; CBC is without leukocytosis anemia or thrombocytopenia. Electrolytes are overall unremarkable, no hyperglycemia, no POONAM, LFTs within normal range, lipase is normal. Urinalysis is pending. Plan to obtain CT of the abdomen and pelvis for further evaluation. Will trial management with Reglan and ketorolac, unrelieved with ketorolac will trial morphine. Differential Diagnosis Differential Diagnoses: The differential diagnosis associated with the presentation includes (Musculoskeletal pain, referred back pain, diverticulitis, obstruction, colitis, pyelonephritis, ureteral calculi, UTI) Admission/Observation Consideration of admission/observation: Escalation of care including admission/observation considered Lab Data MDM Lab Attestation statement: I reviewed the patient's lab results. (See narrative above) 04/09/24 12:54 04/09/24 12:54 Labs: Lab Results 04/09/24 04/09/24 Range/Units 12:54 14:12 WBC 5.2 (4.8-10.8) X10*3/uL RBC 4.28 (4.20-5.50) X10*6/uL Hgb 13.0 (12.0-16.0) g/dl Hct 37.2 (37.0-47.0) % MCV 86.9 (80.0-98.0) fL MCH 30.4 (27.0-33.0) pg MCHC 34.9 (31.0-35.0) g/dl RDW 13.7 (11.0-16.0) % Plt Count 269 (160-400) X10*3/uL MPV 9.9 (9.4-12.3) fL Immature Gran % (Auto) 0.2 (0.0-0.4) % Neut % (Auto) 53.6 (45-73) % Lymph % (Auto) 30.2 (20-40) % [place] % (Auto) 11.8 H (2-11) % Eos % (Auto) 2.7 (0-4) % Baso % (Auto) 1.5 (0-2) % Lymph # (Auto) 1.6 (1.2-4.9) X10*3/uL [place] # (Auto) 0.6 (0.1-1.2) X10*3/uL Eos # (Auto) 0.1 (0.0-0.4) X10*3/uL Baso # (Auto) 0.1 (0.0-0.2) X10*3/uL Abs Immat Gran (auto) 0.01 (0.00-0.03) X10*3/uL Absolute Neuts (auto) 2.8 (2.0-8.3) x10*3/uL Absolute Nucleated RBC 0.000 (0.0-0.012) X10*3/uL Nucleated RBC % (auto) 0.0 (0.0-0.2) /100WBC Sodium 141 (135-145) mmol/L Potassium 3.9 (3.3-5.1) mmol/L Chloride 110 H (96-108) mmol/L Carbon Dioxide 24 (22-29) mmol/L Anion Gap 11 L (12-20) BUN 17 H (9-16) mg/dL Creatinine 0.95 (0.5-1.4) mg/dL Estim Creat Clear Calc 97.6 Estimated GFR > 60 Random Glucose 113 (60-115) mg/dL Calcium 9.2 (8.4-10.2) mg/dL Magnesium 1.7 (1.6-2.6) mg/dL Total Bilirubin 0.4 (0.0-1.0) mg/dL AST 15 (5-31) U/L ALT 17 (0-31) U/L Alkaline Phosphatase 66 (39-117) U/L Total Protein 6.8 (6.5-8.0) g/dL Albumin 4.1 (3.5-5.0) g/dL Lipase 37 (8-78) U/L Beta HCG, Quant < 2 mIU/mL Urine Color Yellow Urine Appearance Clear Urine pH 6.0 (5.0-9.0) Ur Specific Ethel 1.025 (1.005-1.025) Urine Protein Negative (Neg-Trace) mg/dL Urine Glucose (UA) Negative (Negative) mg/dL Urine Ketones Negative (Negative) mg/dL Urine Blood Negative (Negative) Urine Nitrite Negative (Negative) Ur Leukocyte Esterase Negative (Negative) Radiology Impression Discussion of test interpretation with radiology: I have reviewed the radiologist's reading. Radiologist Impression: CT/CT abdomen pelvis w IV con IMPRESSION: No acute abnormality in the abdomen or pelvis. Hepatic steatosis. Colonic diverticulosis. External Record Review External record reviewed: Prior outpatient labs Critical Care Time Critical Care Time Critical Care Time: Yes Total Critical Care Time: 35 Attestation: I personally attest to this critical care time spent taking care of the patient exclusive of all other billable procedures was approximately 35 minutes including initial evaluation of patient, ordering tests, IV morphine and re-evaluation, documentation, re-evaluation. Discharge Plan Discharge Clinical Impression: Abdominal pain Patient Disposition: Home, Self-Care Instructions: Abdominal Pain (ED) Additional Instructions: As discussed, your CT scan today does not show an obvious cause for your abdominal pain. Your urine testing was without evidence of infection or blood in the urine. Your lab tests were overall normal. You may trial dicyclomine for pain management as needed. Contact your primary care doctor to arrange for a follow-up visit for persistent symptoms. Prescriptions: New dicyclomine 10 mg capsule 10 mg PO TID Qty: 20 0RF No Action cetirizine 10 mg tablet 10 mg PO DAILY Qty: 30 0RF albuterol sulfate [ProAir HFA] 90 mcg/actuation HFA aerosol inhaler 1 inh inhalation QID PRN (Reason: shortness of breath or wheezing) Qty: 6.7 0RF loperamide [Imodium A-D] 2 mg tablet 2 mg PO Q6H PRN (Reason: loose stool) Qty: 14 0RF cyclobenzaprine 10 mg tablet 10 mg PO TID PRN (Reason: muscle spasm) Qty: 10 0RF ketorolac 10 mg tablet 10 mg PO Q8H 3 Days Qty: 9 0RF lidocaine 5 % adhesive patch,medicated 1 patch topical DAILY Qty: 30 0RF Rx Instructions: leave on most painful area for up to 12 hrs methylprednisolone [Methylpred DP] 4 mg tablets,dose pack 4 mg PO DAILY Qty: 21 0RF Benadryl Allergy 50 mg tablet 50 mg PO Q6H PRN (Reason: itching) Qty: 20 0RF famotidine [Pepcid] 40 mg tablet 40 mg PO DAILY Qty: 14 0RF lorazepam [Ativan] 1 mg tablet 1 mg PO BID PRN (Reason: anxiety) Qty: 6 0RF propranolol 10 mg tablet 10 mg PO TID fluoxetine 20 mg capsule 20 mg PO QAM sumatriptan succinate 25 mg tablet 25 mg PO omeprazole 40 mg capsule,delayed release(DR/EC) 40 mg PO QAM fluoxetine 40 mg capsule 40 mg PO QAM quetiapine 50 mg tablet 50 mg PO QAM quetiapine 25 mg tablet 25 mg PO BEDTIME gabapentin 800 mg tablet 800 mg PO TID 30 Days Qty: 90 8RF ibuprofen 400 mg tablet 400 mg PO Q8H PRN (Reason: pain) 30 Days Qty: 90 4RF methocarbamol 750 mg tablet 750 mg PO Q8H 30 Days Qty: 90 8RF Referrals: Radha Sebastian NP [Primary Care Provider] - Interventions: ED Discharge Assessment Last Done: 04/09/24 17:32 Discharge Date/Time: 04/09/24 17:33 Print Language: [place]
[2024-04-09 12:45] VITALS: BP 110/72; PULSE 74; RESP 18; TEMP 36.9; O2SAT 96; BMI 37.1
[2024-04-09 13:03] LABS: MANUAL DIFF FLAG NO
[2024-04-09 13:04] LABS: Basophils Absolute Auto 0.1 X10*3/uL (0.0-0.2); Basophils Percent Auto 1.5 % (0-2); Eosinophils Absolute Auto 0.1 X10*3/uL (0.0-0.4); Eosinophils Percent Auto 2.7 % (0-4); Hematocrit 37.2 % (37.0-47.0); Imm Gran Abs Auto 0.01 X10*3/uL (0.00-0.03); Imm Gran Pct Auto 0.2 % (0.0-0.4); Lymphocytes Absolute Auto 1.6 X10*3/uL (1.2-4.9); Lymphocytes Percent Auto 30.2 % (20-40); Mean Corpuscular HGB Conc 34.9 g/dl (31.0-35.0); Mean Corpuscular Hemoglobin 30.4 pg (27.0-33.0); Mean Corpuscular Volume 86.9 fL (80.0-98.0); Mean Platelet Volume 9.9 fL (9.4-12.3); Monocytes Absolute Auto 0.6 X10*3/uL (0.1-1.2); Monocytes Percent Auto 11.8 % (2-11); Neutrophils Absolute Auto 2.8 x10*3/uL (2.0-8.3); Neutrophils Percent Auto 53.6 % (45-73); Platelet Count 269 X10*3/uL (160-400); Red Blood Count 4.28 X10*6/uL (4.20-5.50); Red Cell Distribution Width 13.7 % (11.0-16.0); White Blood Count 5.2 X10*3/uL (4.8-10.8)
[2024-04-09 13:20] LABS: Alanine Aminotransferase 17 U/L (0-31); Albumin Level 4.1 g/dL (3.5-5.0); Alkaline Phosphatase 66 U/L (39-117); Anion Gap 11 (12-20); Aspartate Amino Transferase 15 U/L (5-31); Bilirubin Total 0.4 mg/dL (0.0-1.0); Blood Urea Nitrogen 17 mg/dL (9-16); Calcium 9.2 mg/dL (8.4-10.2); Carbon Dioxide 24 mmol/L (22-29); Chloride 110 mmol/L (96-108); Creatinine Clr Calc Pharmacy 97.6; Estimated Glomerular Filt Rate > 60; Glucose Random 113 mg/dL (60-115); Lipase 37 U/L (8-78); Magnesium 1.7 mg/dL (1.6-2.6); Potassium 3.9 mmol/L (3.3-5.1); Sodium 141 mmol/L (135-145); Total Protein 6.8 g/dL (6.5-8.0)
[2024-04-09] MEDS: Metoclopramide HCl 10 MG/2 ML VIAL IVPUSH (13:58)
[2024-04-09] MEDS: 0.9 % Sodium Chloride 1,000 ML 999 ML IV (13:58)
[2024-04-09] MEDS: Ketorolac Tromethamine 30 MG/ML VIAL IVPUSH (13:58)
[2024-04-09 14:08] LABS: HCG Quantitative < 2 mIU/mL
[2024-04-09 14:22] LABS: Appearance Urine Clear; Color Urine Yellow; Glucose Urine UA Negative (Negative); Leukocyte Esterase Urine Negative (Negative); Nitrite Urine Negative (Negative); Specific Gravity - Urine 1.025 (1.005-1.025); Urine Blood Negative (Negative); Urine Ketones Negative (Negative); Urine Protein Negative (Neg-Trace)
[2024-04-09] MEDS: iohexoL 350 MG/ML 100 ML INFUS..BTL IV (14:43)
[2024-04-09 15:38] VITALS: BP 112/68; PULSE 61; RESP 16; TEMP 36.9; O2SAT 95
[2024-04-09] MEDS: Morphine Sulfate 4 MG/ML CARTRIDGE IVPUSH (15:41)
[2024-04-09 17:32] VITALS: BP 112/68; PULSE 61; RESP 16; TEMP 36.9; O2SAT 95
== END 2024-04-09 17:33 | disposition home or self-care (01) ==
PROVIDERS: Nurse Practitioner Family; Physician Assistant Medical; Emergency Provider Emergency Medicine; PCP Nurse Practitioner Family
DX: R10.32 Left lower quadrant pain (principal)
CPT/HCPCS: 36415; 74177; 80053; 81003; 83690; 83735; 84702; 85025; 96361; 96374; 96375; 99284; J1885; J2270; J2765; Q9967

== ENCOUNTER 2024-04-21 15:25 | Outpatient (AMB) | payer MEDICAID, SELFPAY ==
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
== END 2024-04-21 15:35 | disposition home or self-care (01) ==
LOC: HO.PMC 15:25
PROVIDERS: PCP Nurse Practitioner Family; Visit Provider Anesthesiology
DX: M47.816 Spondylosis without myelopathy or radiculopathy, lumbar region (principal); M51.36 Other intervertebral disc degeneration, lumbar region; M54.51 Vertebrogenic low back pain; M79.7 Fibromyalgia
CPT/HCPCS: 99214

== ENCOUNTER → 2024-04-21 15:25 | Outpatient (BNVA) | payer MEDICAID, SELFPAY | PROVIDERS: PCP Nurse Practitioner Family; Visit Provider Anesthesiology ==

== ENCOUNTER 2024-06-16 14:04 | Outpatient (AMB) | payer MEDICAID, SELFPAY ==
--- NOTE | 2024-06-16 14:27 | A.OFFVIS_ITS ---
Vital Signs 06/16/24 14:41 Height 5 ft 8 in Weight 227 lb 15.327 oz BMI 34.7 BP 112/62 Blood Pressure Location Rt brachial Position Sitting Pulse 80 Pulse Source Pulse Oximeter Pulse Oximetry (%) 97 Oxygen Delivery Method Room Air Intake Visit Reasons: RA Intake Note: Patient presents for RA. Allergies tramadol [TRAMADOL] Allergy (Intermediate, Verified 06/16/24 14:31) DIARRHEA methocarbamol [From Robaxin] Allergy (Verified 06/16/24 14:31) Hives ondansetron [From ZOFRAN ( HYDROCHLORIDE)] Adverse Reaction (Mild, Verified 06/16/24 14:31) NAUSEA & VOMITING roboxin Allergy (Unknown, Uncoded 04/21/24 15:28) Unknown Medication List - Last Reconciled 06/16/24 by Kip Castro MD albuterol sulfate 90 mcg/actuation (ProAir HFA) 1 inh inhalation QID PRN baclofen 10 mg PO TID 30 days dicyclomine 10 mg PO TID diphenhydramine HCl (Benadryl Allergy) 50 mg PO Q6H PRN fluoxetine 20 mg PO QAM fluoxetine 40 mg PO QAM loperamide (Imodium A-D) 2 mg PO Q6H PRN lorazepam (Ativan) 1 mg PO BID PRN omeprazole 40 mg PO QAM semaglutide (weight loss) (Wegovy) 1 mg subcut QWEEK topiramate (Topamax) 50 mg PO BID HPI Comments Details: This is a 44-year-old female who presents for evaluation of an underlying autoimmune rheumatic disease. She states that she has had back pain for approximately 10 years. She has had an injection in the past which did not help much. He was recently evaluated by Dr. Lemus. She took gabapentin for some time. She gained plenty of weight and she discontinued it and started on Ozempic with some weight loss. She states that she has diffuse back pain all the time. Nothing seems to help. She denies any swollen joints. She also has fibromyalgia. She has pain in multiple muscular areas. She has unaware of any family history of an autoimmune rheumatic disease. Her mother had MS. [facility] Medical History (Updated 06/16/24 @ 15:18 by Kip Castro MD) Migraines Anxiety Surgical History H/O section Hx of appendectomy Family History Father COVID Mother Multiple sclerosis Social History Household Members: Children Housing: Apartment Alcohol intake: former Patient Tobacco Use Status: Current someday Tobacco user Tobacco use type: Cigarette Cigarette Packs Per Day: 0.5 Cigarettes Per Day: 2 Years Smoked: 25 years Female Reproductive History Menstrual Total pregnancies: 6 Number of Living Children: 1 Ab induced: 3 Ab spontaneous: 2 Review of Systems Const Reports fatigue and Reports weakness Musc Reports back pain, Reports myalgias and Reports arthralgias Neuro Reports weakness Endo Reports fatigue Physical Exam Vital Signs: Last Vital Signs Pulse 80 06/16/24 14:41 BP 112/62 06/16/24 14:41 Pulse Ox 97 06/16/24 14:41 Oxygen Delivery Method Room Air 06/16/24 14:41 BMI result Body Mass Index 34.7 Const General: cooperative, healthy appearing and comfortable Nutritional Appearance: obese Orientation/consciousness: patient oriented x3 Limitations: no limitations HEENT Head: Yes normocephalic and Yes atraumatic Mouth: moist mucous membranes Resp Effort & Inspection: normal respiratory effort and able to speak in complete sentences Cardio Rate: regular rate Skin General skin exam: no rashes or lesions noted Neuro General: patient oriented x3 Extrem Other: No active synovitis Normal nailfold capillaroscopy Multiple fibromyalgia tender points Multiple areas of paraspinal muscle tenderness Normal nailfold capillaroscopy Gurjit test 10-13 cm Assessment & Plan Assessment & Plan (1) Vertebrogenic low back pain: Code(s): M54.51 - Vertebrogenic low back pain Category: Medical Plan: This is a 44-year-old female who presents for evaluation of diffuse pain. Upon evaluation I do not see any signs suggestive of an autoimmune rheumatic disease. Clinical picture consistent with degenerative arthritis of her spine. (2) Fibromyalgia affecting multiple sites: Code(s): M79.7 - Fibromyalgia Category: Medical Plan: Discussed management of fibromyalgia with patient. Is a noninflammatory, non- autoimmune central afferent processing disorder leading to a diffuse pain syndrome. I suggested that patient try to address her underlying psychiatric issues, anxiety/depression/PTSD. I suggested evaluation by a therapist and/or a psychiatrist. Try to follow sleep hygiene practices. Get a referral for a sleep study to rule out KEVIN from PCP. Patient would benefit from increased physical activity, either through formal physical therapy or by joining a gym. Advised patient that she should start activity slowly and increase as tolerated. Consider low-impact exercises such as walking, swimming, aqua therapy stretching, yoga. Plan I spent 30 minutes reviewing patient's chart, evaluating patient, counseling patient and documenting in the chart Coding Level of Care Code New Pt Level 3 (16786) Diagnoses Vertebrogenic low back pain M54.51 Fibromyalgia affecting multiple sites M79.7
[2024-06-16 14:41] VITALS: BP 112/62; PULSE 80; O2SAT 97; BMI 34.7
== END 2024-06-16 15:14 | disposition home or self-care (01) ==
PROVIDERS: PCP Nurse Practitioner Family; Visit Provider Student in an Organized Health Care Education/Training Program
DX: M54.51 Vertebrogenic low back pain (principal); M79.7 Fibromyalgia
CPT/HCPCS: 99203

== ENCOUNTER → 2024-06-16 14:04 | Outpatient (BNVA) | payer MEDICAID, SELFPAY | PROVIDERS: PCP Nurse Practitioner Family; Visit Provider Student in an Organized Health Care Education/Training Program | DX: M54.51 Vertebrogenic low back pain (principal); M79.7 Fibromyalgia | CPT/HCPCS: 99202 ==

== ENCOUNTER 2024-07-23 15:24 | Emergency (ER) | payer MEDICAID, SELFPAY ==
[2024-07-23 15:47] VITALS: BP 100/55; PULSE 63; RESP 18; TEMP 36.4; O2SAT 98; BMI 33.5
[2024-07-23 16:26] LABS: IDNOW Serial# 08D9AD1C; Strep A Nucleic Acid Negative (Negative)
[2024-07-23 17:20] LABS: Influenza A PCR NEGATIVE (Negative); Influenza B PCR NEGATIVE (Negative); Resp Syncy Virus RNA Qual PCR NEGATIVE (Negative); SARS COV2 PCR INHOUSE NEGATIVE (Negative)
--- NOTE | 2024-07-23 17:25 | ED_ITS ---
HPI - URI/Sore Throat General Chief Complaint: Upper Respiratory Symptoms Stated Complaint: Trouble swallowing, can't hear L ear Time Seen by Provider: 07/23/24 17:21 Source: patient Mode of arrival: ambulatory Limitations: no limitations History of Present Illness ED Provider: JESSY ANDERSON PA-C HPI Narrative: 44 year old female with pmhx significant for fibromyalgia presents to the ED today for evaluation of chills, sore throat, and odynophagia x24 hours. denies dysphagia. denies known sick contacts. denies fever, cough, sputum production, rashes. Also reports waking up with crusting to b/l eyes x6 months. Has not followed up with a provider for this. Denies eye pain, swelling, or vision changes. She does not wear corrective lenses. She also endorses decreased hearing to her left ear x3 months. Has not followed up with a provider for this either. Reports feeling like the ear is blocked. Has been cleaning the ear out with a QTip. No blunt trauma to the ear. Denies ear pain, drainage. Related Data Home Medications ?Medication ?Instructions ?Recorded ?Confirmed fluoxetine 20 mg capsule 20 mg PO QAM 05/21/23 fluoxetine 40 mg capsule 40 mg PO QAM 05/21/23 omeprazole 40 mg capsule,delayed 40 mg PO QAM 05/21/23 release semaglutide (weight loss) 0.5 1 mg subcut QWEEK 06/16/24 mg/0.5 mL subcutaneous pen injector (Wegovy) topiramate 50 mg tablet (Topamax) 50 mg PO BID 06/16/24 Previous Rx's ?Medication ?Instructions ?Recorded albuterol sulfate 90 mcg/actuation 1 inh inhalation QID PRN shortness 06/22/20 aerosol inhaler (ProAir HFA) of breath or wheezing #6.7 grams loperamide 2 mg tablet (Imodium 2 mg PO Q6H PRN loose stool #14 09/17/22 A-D) tabs diphenhydramine HCl 50 mg tablet 50 mg PO Q6H PRN itching #20 tabs 02/18/24 (Benadryl Allergy) lorazepam 1 mg tablet (Ativan) 1 mg PO BID PRN anxiety #6 tabs 02/18/24 dicyclomine 10 mg capsule 10 mg PO TID #20 caps 04/09/24 baclofen 10 mg tablet 10 mg PO TID muscle spasm 30 days 04/21/24 #90 tabs benzocaine 15 mg-menthol 2.6 mg 1 brea mucous membrane Q2-4H PRN 07/23/24 lozenges (Cepacol Sore Throat sore throat #16 ea (benzocaine-menthol)) prednisone 20 mg tablet 20 mg PO DAILY 5 days #5 tabs 07/23/24 Allergies Allergy/AdvReac Type Severity Reaction Status Date / Time tramadol [TRAMADOL] Allergy Intermediate DIARRHEA Verified 07/23/24 15:48 methocarbamol [From Robaxin] Allergy Hives Verified 07/23/24 15:48 ondansetron AdvReac Mild NAUSEA & Verified 07/23/24 15:48 [From ZOFRAN ( VOMITING HYDROCHLORIDE)] roboxin Allergy Unknown Unknown Uncoded 04/21/24 15:28 Review of Systems Review of Systems: Constitutional: No fever, chills, fatigue, night sweats, weight changes ENT/Mouth: No ear pain, hearing loss, nasal congestion, sinus pain, rhinorrhea, +sore throat Eyes: No eye pain, swelling, redness, vision changes, discharge Cardio: No chest pain, palpitations, HASSAN, orthopnea, peripheral edema Pulm: No SOB, cough, sputum, wheezing, dyspnea, hemoptysis GI: No nausea, vomiting, hematemesis, abdominal pain, diarrhea, constipation, hematochezia, melena : No irregular bleeding, dysuria, frequency, urgency, hesitancy, hematuria, flank pain, urinary flow changes, urinary incontinence or retention MSK: No back pain, neck pain, joint pain, myalgias Skin: No lesions, rashes Neuro: No weakness, numbness, paresthesias, LOC, dizziness, headache Psych: No anxiety/panic, depression, SI/HI, AH/VH All other systems reviewed and are negative. [facility] Past Medical History Attestation statement: The following information was validated with the patient. Source: old records reviewed and nursing notes reviewed Medical History Migraines Anxiety Surgical History H/O section Hx of appendectomy Family History Family History Father COVID Mother Multiple sclerosis Social History Social History Household Members: Children Housing: Apartment Alcohol intake: former Patient Tobacco Use Status: Current someday Tobacco user Tobacco use type: Cigarette Cigarette Packs Per Day: 0.5 Cigarettes Per Day: 2 Years Smoked: 25 years Advance Directives: No Advance Directives Information Provided: Yes Do you have a plan to hurt others: No Plan Physical Exam Vital Signs: Vital Signs: Last Vital Signs Temp 97.1 F 07/23/24 18: Pulse 54 07/23/24 18:27 Resp 16 07/23/24 18:27 BP 108/62 07/23/24 18:27 Pulse Ox 97 07/23/24 18:27 O2 Del Method Room Air 07/23/24 18:27 BMI result Body Mass Index 33.5 vitals wnl General: Well appearing, in no acute distress. Skin: Warm, dry, intact. No rashes or lesions. Head: Normocephalic, atraumatic. EENT: hearing slightly diminished to left ear. no pain on manipulation of pinna. eac without erythema/edema/discharge. no cerumen. tm intact w/o erythema, bulging or effusion. Conjunctiva clear. no noted crusting, edema or redness. PERRLA. EOM intact w/o pain. Moist mucous membranes.?posterior oropharynx erythematous, mildly edematous, no tonsilar exudates or peritonsilar masses. uvula midline. controlling secretions and speaking in complete sentences. Neck: Supple without LAD Cardiac: Chest wall symmetric. RRR Lungs: Normal respiratory effort without accessory muscle use. CTA bilaterally. No rales, rhonchi, or wheezes.? Ext: Upper and lower extremities atraumatic, without tenderness, deformity, swelling or erythema Neuro: AOx3. Normal speech. Ambulating with steady gait. Psych: Appropriate mood and affect. Responds appropriately to questions. Course Course Course Narrative: she tested negative for covid/flu/rsv/strep. exam consistent with pharyngitis. treated with decadron and toradol in ed. will send prednisone and cepacol throat lozenges to pharmacy. Patient has remained stable throughout ED visit today. Discussed worrisome signs and symptoms and when to return to the ED. All questions answered at this time. Patient is agreeable with disposition and sta ble for discharge. Medications Administered Discontinued Medications Generic Name Dose Route Start Last Admin Trade Name Luca PRN Reason Stop Dose Admin Dexamethasone Sodium Phosphate 10 mg 07/23/24 17:39 07/23/24 18:22 Dexamethasone Sod Phosphate 10 Mg/Ml Vial IVPUSH 07/23/24 17:40 10 mg ONCE ONE Administration Ketorolac Tromethamine 30 mg 07/23/24 17:39 07/23/24 18:22 Ketorolac Tromethamine 30 Mg/Ml Vial IM 07/23/24 17:40 30 mg ONCE ONE Administration Medical Decision Making Medical Decision Making [facility] Narrative: 44 year old female with pmhx significant for fibromyalgia presents to the ED to day for evaluation of chills, sore throat, and odynophagia x24 hours. her vitals are stable. she is afebrile. nontoxic appearing and in nad. on exam, hearing slightly diminished to left ear. no pain on manipulation of pinna. eac without erythema/edema/discharge. no cerumen. tm intact w/o erythema, bulging or effusion. Conjunctiva clear. no noted crusting, edema or redness. PERRLA. EOM intact w/o pain. Moist mucous membranes.?posterior oropharynx erythematous, mildly edematous, no tonsilar exudates or peritonsilar masses. uvula midline. controlling secretions and speaking in complete sentences. Differential diagnosis includes viral syndrome, strep throat, pharyngitis, cerumen impaction, dry eye. Unlikely mono, SHIP KEEPER retropharyngeal abscesss, epiglottitis, conjunctivitis, otitis media/externa, mastoiditis, malignant otitis externa plan for viral/ strep swabs, pain control, steroid, and re-evaluation. Differential Diagnosis Differential Diagnoses: The differential diagnosis associated with the presentation includes as above Admission/Observation not indicated Lab Data [facility] Lab Attestation statement: I reviewed the patient's lab results. as above Labs: Lab Results 07/23/24 07/23/24 Range/Units 16:02 16:04 Influenza Type A (PCR) NEGATIVE (Negative) Influenza Type B (PCR) NEGATIVE (Negative) RSV RNA Qual (PCR) NEGATIVE (Negative) SARS-CoV-2 RNA (RT-PCR) NEGATIVE (Negative) S. pyogenes GrpA KAMERON Negative (Negative) External Record Review External record reviewed: Inpatient record Prescription Management I considered prescription management with: Other (prednisone, cepacol) Social Determinants Patient?s care significantly limited by Social Determinants of Health including: Other Social Determinant of Health Critical Care Time Critical Care Time Critical Care Time: No Discharge Plan Discharge Clinical Impression: Pharyngitis Patient Disposition: Home, Self-Care Instructions: Pharyngitis (ED), Upper Respiratory Infection (ED) Additional Instructions: You tested negative for covid, flu, rsv, and strep throat. Your physical exam is consistent with pharyngitis. This does not warranted treatment with antibiotics. Prednisone is a steroid that has been sent to your pharmacy to take over the next 5 days. I recommend you take 600mg ibuprofen every 6 hours or Tylenol 650mg every 6 hours as needed for pain. If needed, you can alternate these medications so that you take one medication every 3 hours. For example, at noon take ibuprofen, then at 3pm take Tylenol, then at 6pm take ibuprofen. Cepacol throat lozenges have been sent to your pharmacy for throat pain. Return with new or worsening symptoms. In the case of an emergency call 911. Prescriptions: New prednisone 20 mg tablet 20 mg PO DAILY 5 Days Qty: 5 0RF Cepacol Sore Throat (robert-men) 15-2.6 mg lozenge 1 brea mucous membrane Q2-4H PRN (Reason: sore throat) Qty: 16 0RF No Action albuterol sulfate [ProAir HFA] 90 mcg/actuation HFA aerosol inhaler 1 inh inhalation QID PRN (Reason: shortness of breath or wheezing) Qty: 6.7 0RF loperamide [Imodium A-D] 2 mg tablet 2 mg PO Q6H PRN (Reason: loose stool) Qty: 14 0RF Benadryl Allergy 50 mg tablet 50 mg PO Q6H PRN (Reason: itching) Qty: 20 0RF lorazepam [Ativan] 1 mg tablet 1 mg PO BID PRN (Reason: anxiety) Qty: 6 0RF dicyclomine 10 mg capsule 10 mg PO TID Qty: 20 0RF fluoxetine 20 mg capsule 20 mg PO QAM omeprazole 40 mg capsule,delayed release(DR/EC) 40 mg PO QAM fluoxetine 40 mg capsule 40 mg PO QAM baclofen 10 mg tablet 10 mg PO TID 30 Days Qty: 90 6RF Wegovy 0.5 mg/0.5 mL pen injector 1 mg subcut QWEEK topiramate [Topamax] 50 mg tablet 50 mg PO BID Interventions: ED Discharge Assessment Last Done: 07/23/24 18:27 Discharge Date/Time: 07/23/24 18:28 Print Language: Sami
[2024-07-23 18:03] VITALS: BP 108/62; PULSE 54; RESP 16; TEMP 36.2; O2SAT 97
--- NOTE | 2024-07-23 18:12 | PC.NURSE ---
Per Ricco Denise, please give IVP Dexamethasone PO
[2024-07-23] MEDS: dexAMETHasone sod phosphate 10 MG/ML VIAL IVPUSH (18:22)
[2024-07-23] MEDS: Ketorolac Tromethamine 30 MG/ML VIAL IM (18:22)
[2024-07-23 18:27] VITALS: BP 108/62; PULSE 54; RESP 16; TEMP 36.2; O2SAT 97
== END 2024-07-23 18:28 | disposition home or self-care (01) ==
PROVIDERS: Emergency Provider Emergency Medicine
DX: J02.9 Acute pharyngitis, unspecified (principal); Z03.818 Encounter for observation for suspected exposure to other biological agents ruled out; H92.02 Otalgia, left ear; F17.210 Nicotine dependence, cigarettes, uncomplicated; Z79.899 Other long term (current) drug therapy
CPT/HCPCS: 0241U; 87651; 96372; 96374; 99283; 99284; J1100; J1885

== ENCOUNTER 2024-08-17 11:56 | Outpatient (AMB) | payer MEDICAID, SELFPAY ==
--- NOTE | 2024-08-17 12:00 | A.OFFVIS_ITS ---
Vital Signs 08/17/24 12:02 Height 5 ft 9 in Weight 232 lb 12.93 oz BMI 34.4 BP 108/66 Blood Pressure Location Rt brachial Position Sitting Pulse 70 Pulse Source Pulse Oximeter Pulse Oximetry (%) 97 Oxygen Delivery Method Room Air Intake Visit Reasons: Irritable bowel syndrome Intake Note: Relevant Flags or Indicators ? Requires Sewer System Supervisor? Grace Mcrae presents in office today for a scheduled initial assessment for IBS. Relevant GI Sx as reported per pt? Pt has previously taken dicyclomine and miralax without any relief. Pt has been having moderate to severe constipation. Bloating, abd pain. Pt would like to discuss linzess.Pt is taking x4 dicyclomine / day without relief. ? Hx of any recent surgeries? 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 Patient has been diagnosed with IBS for sometimes. Was placed on dicyclomine, however she reports that she continues to have abdominal pain. Patient is also constipated, would like to discuss possibility of her trying Linzess. Patient does admit however that sometimes she will have diarrhea and she used loperamide. Currently not taking it. Denies melena, hematochezia, unintentional weight loss or ribbon like stools. Patient denies any dyspepsia, dysphagia or odynophagia, however patient does admit that occasionally she will have epigastric pain and burning. [facility] Medical History (Updated 09/12/24 @ 14:08 by Maricruz Carranza BRIDGE PAINTER-) IBS (irritable bowel syndrome) Migraines Anxiety Surgical History H/O section Hx of appendectomy Family History Father COVID Mother Multiple sclerosis Social History Household Members: Children Housing: Apartment Alcohol intake: former Patient Tobacco Use Status: Current someday Tobacco user Tobacco use type: Cigarette Cigarette Packs Per Day: 0.5 Cigarettes Per Day: 2 Years Smoked: 25 years Review of Systems Const Denies weight gain and Denies weight loss ENT Reports no additional complaints, Denies dysphagia and Denies odynophagia Card Reports no additional complaints Resp Reports no additional complaints GI Reports abdominal pain, Denies belching, Denies melena, Reports bloating, Denies change in bowel habits, Reports constipation, Denies dysphagia, Denies excessive flatus, Reports dyspepsia, Reports heartburn, Denies diarrhea, Denies loose stools, Denies nausea, Denies odynophagia and Denies vomiting Reports no additional complaints Musc Reports no additional complaints Neuro Reports no additional complaints Psych Reports no additional complaints Endo Reports no additional complaints Physical Exam Vital Signs: Last Vital Signs Pulse 70 08/17/24 12:02 BP 108/66 08/17/24 12:02 Pulse Ox 97 08/17/24 12:02 Oxygen Delivery Method Room Air 08/17/24 12:02 BMI result Body Mass Index 34.4 Const General: healthy appearing and no acute distress Nutritional Appearance: obese Orientation/consciousness: patient oriented x3 Resp Effort & Inspection: normal respiratory effort, able to speak in complete sent ences, no tracheal deviation and symmetric chest movement Auscultation: clear to auscultation bilaterally Cardio Rate: regular rate GI Inspection: Yes normal to inspection, No distended and Yes obesity Palpation (GI): Soft to palpation, not firm, nontender and No hepatosplenomegaly present Auscultation: normal bowel sounds General: Yes no CVA tenderness Back/Spine/Pelvis Back: no CVA tenderness Skin General skin exam: elasticity normal, turgor normal and dry skin Neuro General: patient oriented x3 Psych Appearance: grossly normal Mental Status: mental status grossly normal Assessment & Plan Assessment & Plan (1) IBS (irritable bowel syndrome): Code(s): K58.9 - Irritable bowel syndrome, unspecified Category: Medical Qualifiers: Irritable bowel syndrome type: with both diarrhea and constipation Qualified Code(s): K58.2 - Mixed irritable bowel syndrome (2) Postprandial epigastric pain: Code(s): R10.13 - Epigastric pain (3) GERD (gastroesophageal reflux disease): Code(s): K21.9 - Gastro-esophageal reflux disease without esophagitis Qualifiers: Esophagitis presence: esophagitis presence not specified Qualified Code(s): K21.9 - Gastro-esophageal reflux disease without esophagitis (4) Constipation: Code(s): K59.00 - Constipation, unspecified Qualifiers: Constipation type: slow transit constipation Qualified Code(s): K59.01 - Slow transit constipation (5) Postprandial abdominal bloating: Code(s): R14.0 - Abdominal distension (gaseous) Plan Patient will hold dicyclomine for now, this is not working for her this time and could be contributing to her constipation which could be causing her symptoms of abdominal pain and cramping worse. Will start Linzess for now start with 145 mcg daily. Will increase dose if necessary. Patient will also start fiber supplement with probiotics. Will start her on Nexium. She does admit to have epigastric pain postprandially. Postprandial abdominal bloating could be caused by the food that patient is eating and her not being able to empty her bowels. We will start her on low FODMAP diet, patient will try to avoid certain dietary triggers. Low FODMAP diet discussed with her. List of food recommended as well as list of food to avoid given to patient. Patient will return to the office in 6 weeks will re-evaluate patient and discuss her going for upper endoscopy and colonoscopy. Patient is agreeable to current plan of care and verbalizes understanding of instructions. She was given the opportunity to ask questions and all questions answered. Thank you for allowing me to participate in her care Medications: New linaclotide (Linzess) 145 mcg PO DAILY 30 caps 2RF esomeprazole magnesium (Nexium) 40 mg PO DAILY 30 caps 2RF K21.9 - Gastro- esophageal reflux disease without esophagitis Discontinued loperamide Discontinued Reason: Patient no longer taking 2 mg PO Q6H PRN 14 tabs 0RF loose stool prednisone Discontinued Reason: Patient no longer taking 20 mg PO DAILY 5 days 5 tabs 0RF On Hold dicyclomine Hold Comment: Doctor's Order 10 mg PO TID 20 caps 0RF Coding Level of Care Code New Pt Level 4 (25145) Diagnoses Irritable bowel syndrome with both constipation and diarrhea K58.2 Irritable bowel syndrome type: with both diarrhea and constipation Postprandial epigastric pain R10.13 Gastroesophageal reflux disease, unspecified whether esophagitis present K21.9 Esophagitis presence: esophagitis presence not specified Slow transit constipation K59.01 Constipation type: slow transit constipation Postprandial abdominal bloating R14.0 Time Spent (min) 45 Comment 30 minutes spent with patient and additional 15 minutes spent reviewing her records
[2024-08-17 12:02] VITALS: BP 108/66; PULSE 70; O2SAT 97; BMI 34.4
== END 2024-08-17 12:28 | disposition home or self-care (01) ==
PROVIDERS: PCP Nurse Practitioner Family; Visit Provider Nurse Practitioner Family
DX: K58.2 Mixed irritable bowel syndrome (principal); R10.13 Epigastric pain; K21.9 Gastro-esophageal reflux disease without esophagitis; K59.01 Slow transit constipation; R14.0 Abdominal distension (gaseous)
CPT/HCPCS: 99204

== ENCOUNTER → 2024-08-17 11:56 | Outpatient (BNVA) | payer MEDICAID, SELFPAY | PROVIDERS: PCP Nurse Practitioner Family; Visit Provider Nurse Practitioner Family | DX: K58.2 Mixed irritable bowel syndrome (principal); K21.9 Gastro-esophageal reflux disease without esophagitis; K59.01 Slow transit constipation; R14.0 Abdominal distension (gaseous); R10.13 Epigastric pain | CPT/HCPCS: 99212 ==

== ENCOUNTER 2024-08-27 11:24 | Outpatient (REF) | payer MEDICAID, SELFPAY ==
[2024-08-27 13:55] LABS: Alanine Aminotransferase 12 U/L (0-31); Alkaline Phosphatase 73 U/L (39-117); Anion Gap 9 (12-20); Aspartate Amino Transferase 17 U/L (5-31); Bilirubin Total 0.3 mg/dL (0.0-1.0); Blood Urea Nitrogen 20 mg/dL (9-16); Calcium 9.1 mg/dL (8.4-10.2); Carbon Dioxide 25 mmol/L (22-29); Chloride 110 mmol/L (96-108); Cholesterol 243 mg/dL (<200); Estimated Glomerular Filt Rate 59; Glucose Random 99 mg/dL (60-115); HDL Cholesterol 49 mg/dL (>40); LDL Cholesterol Calculated 158 mg/dL (<100); Sodium 140 mmol/L (135-145); Total Protein 7.1 g/dL (6.5-8.0); Triglycerides 183 mg/dL (<150)
[2024-08-27 13:59] LABS: TSH reflex Free T4 3.21 uIU/mL (0.32-4.0)
[2024-08-27 14:06] LABS: Estimated Average Glucose 105 mg/dL; Hemoglobin A1C 144.8508 umol/L; Hemoglobin A1c % 5.3 % (<6.0); Total Hemoglobin (HGBA1C) 4191.8582 umol/L
== END 2024-08-27 11:25 | disposition home or self-care (01) ==
LOC: HO.HHCL 11:24
PROVIDERS: Visit Provider Registered Nurse
DX: E66.811 Obesity, class 1 (principal); E66.09 Other obesity due to excess calories; Z68.32 Body mass index [BMI] 32.0-32.9, adult; N95.1 Menopausal and female climacteric states
CPT/HCPCS: 36415; 80053; 80061; 83036; 84443

== ENCOUNTER 2024-10-12 13:00 | Outpatient (REF) | payer MEDICAID, SELFPAY ==
--- OUTSIDE RECORDS SUMMARY | 2024-10-12 13:56 | XMS_ITS | Clinical Summary ---
Author Organization [facility] ity Address [address] [place] [address] Care Team Providers Care Twister Operator Name Role Phone Leonard Delgadillo MD Primary Care Provide r Social History Tobacco Use Types Packs/Day Years Used Date Smoking Tobacco: Never Assessed Sex and Gender Information Value Date Recorded Sex Assigned at Not on file Gender Identity Not on file Sexual Orientation Not on file Plan of Treatment Health Maintenance Due Date Last Done Comments Breast Cancer Screening 1979 DTaP,Tdap,and Td Vaccines (1 - Tdap) 1998 Hepatitis B Vaccines (1 of 3 - 19+ 3-dose series) 1998 Cervical Cancer Screening: P ap Smear 2000 COVID-19 Vaccine (2023-2 5 season) 2024 Influenza Vaccine (#1) 2024 HIB Vaccines Aged Out No longer eligi ble based on patient's age to complete this topic HPV Vaccines Aged Out No longer eligi ble based on patient's age to complete this topic Hepatitis A Vaccines Aged Out No long er eligible based on patient's age to complete this topic IPV Vaccines Aged Out No longer eligi ble based on patient's age to complete this topic MMR Vaccines Aged Out No longer eligi ble based on patient's age to complete this topic Meningococcal ACWY Vaccine Aged Out N o longer eligible based on patient's age to complete this topic Pneumococcal Vaccine: Pediat rics (0 to 5 Years) and At-Risk Patients (6 to 64 Years) Aged Out No longer eligible b ased on patient's age to complete this topic RSV Immunization Patients Un lidia 20 months Aged Out No longer eligible b ased on patient's age to complete this topic Varicella Vaccines Aged Out No longer eligible based on patient's age to complete this topic Care Teams Twister Operator Relationship Specialty Start Date End Date Leonard Delgadillo MD PCP - General Internal Medicine 04/14/19
== END 2024-10-12 13:01 | disposition home or self-care (01) ==
LOC: HO.MAMMO 13:00
PROVIDERS: PCP Registered Nurse; Visit Provider Registered Nurse
DX: Z12.31 Encounter for screening mammogram for malignant neoplasm of breast (principal)
CPT/HCPCS: 77063; 77067

== ENCOUNTER → 2024-10-12 13:15 | Outpatient (BNV) | payer MEDICAID, SELFPAY | PROVIDERS: PCP Registered Nurse; Visit Provider Internal Medicine | DX: Z12.31 Encounter for screening mammogram for malignant neoplasm of breast (principal) | CPT/HCPCS: 77063; 77067 ==

== ENCOUNTER 2024-12-29 15:56 | Outpatient (REF) | payer MEDICAID, SELFPAY ==
--- OUTSIDE RECORDS SUMMARY | 2024-12-29 18:11 | XMS_ITS | Encounter Summary ---
Author Organization [employer] Address [address] [facility] 7t [place] [address] Care Team Providers Care Social Work Therapist Name Role Phone Radha Sebastian [facility] Primary Care Provider [phone] [facility] Primary Care Provider [phone] Reason for Visit * Reason Onset Date Comments FYI 03/19/2024 Encounter Details Date Type Department Care Team ([facility] st Contact Info) Description 03/19/2024 Telephone [facility] MEDICINE [address] [place] [address] Radha Sebastian FNP [address] [place] [address] FYI Social History Tobacco Use Types Packs/Day Years Used Date Smoking Tobacco: Every Day Cigarettes Passive Smoke Exposure: Current Smokeless Tobacco: Never Alcohol Use Standard Drinks/Week Comments Not Currently 0 (1 standard drink = 0.6 oz pur e alcohol) occasional Depression Answer Date Recorded Patient Health Questionnaire-9 Score 24 12/11/2023 Patient Health Questionnaire-9 Score 24 12/11/2023 Last PHQ-9: Questionnaire Data Not on file 0 12/11/2023 Housing Stability Answer Date Recorded What is your housing situation today? I have kareem schwartz 07/03/[address] you li ve. Do you have problems with any of the following? None of the above 07/03/2023 Food Insecurity Answer Date Recorded Within the past 12 months, y ou worried that your food would run out before you got money to buy more: Sometimes True 2022 Within the past 12 months,th e food you bought just didn't last and you didn't have enough money to get more: Sometimes True 07/03/2023 Transportation Answer Date Recorded In the past 12 months, has l ack of transportation kept you from medical appts, meetings, work or from getting things needed for daily living? No 07/03/2023 Utilities Answer Date Recorded In the past 12 months, has t he electric, gas, oil or water company threatened to shut off services in your home? Yes 06/24/2023 Depression Answer Date Recorded Patient Health Questionnaire-2 Score 6 12/11/2023 Education Answer Date Recorded What is the highest level of school you have completed or the highest degree you have received? 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 Please contact pt at [phone]. documented in this encounter Plan of Treatment Upcoming Encounters Date Type Department Care Team (Late st Contact Info) Description 01/13/2025 1:15 PM EDT Office Visit [facility] OPTOMETRY [address] [place] [address] TarClaudette zhang, OD [address] [place] [address] 03/14/2025 2:30 PM EDT Office Visit [facility] MEDICINE [address] [place] [address] [place], Aparna, DIGITAL MARKETING ASSISTANT [address] [place] [address] documented as of this encounter Visit Diagnoses Not on filedocumented in this encounter Additional Health Concerns Assessment Noted Time PHQ-9 Depression Total Score: 024 1:55 PM EDT documented as of this encounter Care Teams Social Work Therapist Relationship Specialty Start Date End Date Radha Sebastian FNP [address] [place] [address] PCP - General Family Medicine 02/20/23 05/17/24 Aparna Shaw FNP [address] [place] [address] PCP - General Family Medicine 05/18/24 documented as of this encounter
--- OUTSIDE RECORDS SUMMARY | 2024-12-29 18:11 | XMS_ITS | Encounter Summary ---
Author Organization [employer] Address [address] [facility] 7t [place] [address] Care Team Providers Care Accounts Receivable Processor Name Role Phone Radha Sebastian [facility] Primary Care Provider [phone] [facility] Primary Care Provider [phone] Reason for Visit * Reason Comments Med Refill Encounter Details Date Type Department Care Team ([facility] Contact Info) Description 07/31/2023 Refill [facility] WALK-IN CENTER [address] [place] [address] [facility] [address] [place] [address] Migraine without aura and without status migrainosus, not intractable Social History Tobacco Use Types Packs/Day Years Used Date Smoking Tobacco: Every Day Cigarettes Passive Smoke Exposure: Current Smokeless Tobacco: Never Alcohol Use Standard Drinks/Week Comments Not Currently 0 (1 standard drink = 0.6 oz pur e alcohol) occasional Depression Answer Date Recorded Patient Health Questionnaire-9 Score 24 02/26/2023 Housing Stability Answer Date Recorded What is [...] Date Recorded Patient Health Questionnaire-2 Score 6 02/26/2023 Education Answer Date Recorded What is the highest level of school you have completed or the highest degree you have received? 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 Not on file documented as of this encounter Plan of Treatment Upcoming Encounters Date Type Department Care Team (Late st Contact Info) Description 01/13/2025 1:15 PM EDT Office Visit [facility] OPTOMETRY [address] [place] [address] Tarka, Claudette, OD [address] [place] [address] 03/14/2025 2:30 PM EDT Office Visit [facility] MEDICINE [address] [place] [address] Aparna Shaw FNP [address] [place] [address] documented as of this encounter Visit Diagnoses Diagnosis Migraine without aura and without status migrainosus, not intractable documented in this encounter Additional Health Concerns Assessment Noted Time PHQ-9 Depression Total Score: 24 023 9:10 AM EDT documented as of this encounter Care Teams Accounts Receivable Processor Relationship Specialty Start Date End Date Radha Sebastian FNP [address] [place] [address] PCP - General Family Medicine 02/20/23 05/17/24 Aparna Shaw FNP [address] [place] [address] PCP - General Family Medicine 05/18/24 documented as of this encounter
--- OUTSIDE RECORDS SUMMARY | 2024-12-29 18:11 | XMS_ITS | Encounter Summary ---
Author Organization [employer] Address [address] [place] [address] 7t [place] [address] Care Team Providers Care Nuclear Technician Name Role Phone Radha Sebastian [facility] Primary Care Provider [phone] MorelandAparna [facility] Primary Care Provider [phone] Reason for Visit * Reason Comments Med Refill Encounter Details Date Type Department Care Team ([facility] Contact Info) Description 02/13/2023 Refill [facility] WALK-IN CENTER [address] [place] [address] Shakira Beard FNP Social History Tobacco Use Types Packs/Day Years Used Date Smoking Tobacco: Every Day Cigarettes Passive Smoke Exposure: Current Smokeless Tobacco: Never Comments Unknown Sex and Gender Information Value Date Recorded Sex Assigned at Female 07/15/2022 10:38 AM EDT Legal Sex Female 10:38 AM EDT Gender Identity Female 07/15/2022 10:38 AM EDT Sexual Orientation Straight 07/15/2022 10 :38 AM EDT documented as of this encounter Plan of Treatment Upcoming Encounters Date Type Department Care Team ([facility] Contact Info) Description 01/13/2025 1:15 PM EDT Office Visit [facility] OPTOMETRY [address] [place] [address] TarClaudette zhang, OD [address] [place] [address] 03/14/2025 2:30 PM EDT Office Visit [facility] MEDICINE [address] [place] [address] MorelandAparna [facility] [address] [place] [address] documented as of this encounter Visit Diagnoses Not on filedocumented in this encounter Additional Health Concerns Assessment Noted Time PHQ-9 Depression Total Score: 023 1:31 PM EDT documented as of this encounter Care Teams Nuclear Technician Relationship Specialty Start Date End Date Radha Sebastian FNP [address] [place] [address] PCP - General Family Medicine 02/20/23 05/17/24 Aparna Shaw FNP [address] [place] [address] PCP - General Family Medicine 05/18/24 documented as of this encounter
--- OUTSIDE RECORDS SUMMARY | 2024-12-29 18:11 | XMS_ITS | Encounter Summary ---
Author Organization [employer] Address [address] [facility] 7t [place] [address] Care Team Providers Care Principal Network Engineer Name Role Phone Radha Sebastian [facility] Primary Care Provider [phone] [place], [facility] Primary Care Provider [phone] Reason for Visit * Reason Comments Med Refill Encounter Details Date Type Department Care Team ([facility] Contact Info) Description 01/22/2023 Refill [facility] WALK-IN CENTER [address] [place] [address] Shakira Beard FNP Social History Tobacco Use [...] AM EDT documented as of this encounter Miscellaneous Notes * Telephone Encounter - WIN Lei - 01/22/2023 4:54 PM EDT Approving, but needs appt for additional refills. documented in this encounter Plan of Treatment Upcoming Encounters Date Type Department Care Team ([facility] Contact Info) Description 01/13/2025 1:15 PM EDT Office Visit [facility] OPTOMETRY [address] [place] [address] TarkaClaudette, OD [address] [place] [address] 03/14/2025 2:30 PM EDT Office Visit [facility] MEDICINE [address] [place] [address] Aparna Shaw FNP [address] [place] [address] documented as of this encounter Visit Diagnoses Not on filedocumented in this encounter Additional Health Concerns Assessment Noted Time PHQ-9 Depression Total Score: 24 023 1:31 PM EDT documented as of this encounter Care Teams Principal Network Engineer Relationship Specialty Start Date End Date Radha Sebastian FNP [address] [place] [address] PCP - General Family Medicine 02/20/23 05/17/24 Aparna Shaw FNP [address] [place] [address] PCP - General Family Medicine 05/18/24 documented as of this encounter
--- OUTSIDE RECORDS SUMMARY | 2024-12-29 18:11 | XMS_ITS | Encounter Summary ---
Author Organization [email or web address] Address [address] [facility] 7t [place] [address] Care Team Providers Care Hide Dyer Name Role Phone Radha Sebastian [facility] Primary Care Provider [phone] Primary Care Provider [phone] Reason for Visit * Reason Comments Med Refill Encounter Details Date Type Department Care Team ([facility] Contact Info) Description 12/15/[address] [facility] MEDICINE [address] [place] [address] Radha Sebastian FNP [address] [place] [address] Social History Tobacco Use Types Packs/Day Years [...] 1:15 PM EDT Office Visit [facility] OPTOMETRY [address] [place] [address] Tarka, Claudette, OD [address] [place] [address] 03/14/2025 2:30 PM EDT Office Visit [facility] MEDICINE [address] [place] [address] Aparna Shaw FNP [address] [place] [address] documented as of this encounter Visit Diagnoses Not on filedocumented in this encounter Additional Health Concerns Assessment Noted Time PHQ-9 Depression Total Score: 24 024 1:55 PM EDT documented as of this encounter Care Teams Hide Dyer Relationship Specialty Start Date End Date Radha Sebastian FNP [address] [place] [address] PCP - General Family Medicine 02/20/23 05/17/24 Aparna Shaw FNP [address] [place] [address] PCP - General Family Medicine 05/18/24 documented as of this encounter
--- OUTSIDE RECORDS SUMMARY | 2024-12-29 18:11 | XMS_ITS | Encounter Summary ---
Author Organization [employer] Address [address] [place] [address] 7t [place] [address] Care Team Providers Care Environmental Scientist Name Role Phone Radha Sebastian [facility] Primary Care Provider [phone] VirgilAparna [facility] Primary Care Provider [phone] Reason for Visit * Reason Comments Med Refill Encounter Details Date Type Department Care Team ([facility] Contact Info) Description 02/12/2023 Refill [facility] WALK-IN CENTER [address] [place] [address] Shakira Beard FNP Social History Tobacco Use [...] Upcoming Encounters Date Type Department Care Team ([facility] Contact Info) Description 01/13/2025 1:15 PM EDT Office Visit [facility] OPTOMETRY [address] [place] [address] TarClaudette zhang, OD [address] [place] [address] 03/14/2025 2:30 PM EDT Office Visit [facility] MEDICINE [address] [place] [address] VirgilAparna [facility] [address] [place] [address] documented as of this encounter Visit Diagnoses Not on filedocumented in this encounter Additional Health Concerns Assessment Noted Time PHQ-9 Depression Total Score: 023 1:31 PM EDT documented as of this encounter Care Teams Environmental Scientist Relationship Specialty Start Date End Date Radha Sebastian FNP [address] [place] [address] PCP - General Family Medicine 02/20/23 05/17/24 Aparna Shaw FNP [address] [place] [address] PCP - General Family Medicine 05/18/24 documented as of this encounter
--- OUTSIDE RECORDS SUMMARY | 2024-12-29 18:11 | XMS_ITS | Encounter Summary ---
Author Organization [employer] Address [address] [facility] 7t [place] [address] Care Team Providers Care Invoice Classification Clerk Name Role Phone Aparna Shaw [employer] Primary Care Provider [phone] Encounter Details Date Type Department Care Team (Latest Contact Info) Description 12/29/2024 Travel Social History Tobacco Use Types Packs/Day Years Used Date Smoking Tobacco: Every Day Cigarettes Passive Smoke Exposure: Current Smokeless Tobacco: Never Alcohol Use Standard Drinks/Week Comments Not Currently 0 (1 standard drink = 0.6 oz pur e alcohol) occasional Depression Answer Date Recorded Patient Health Questionnaire-9 Score 24 12/13/2024 Patient Health Questionnaire-9 Score 24 12/13/2024 Last PHQ-9: Questionnaire Data Not on file 0 12/13/2024 Housing Stability Answer Date Recorded What is [...] Date Recorded Patient Health Questionnaire-2 Score 6 12/13/2024 Education Answer Date Recorded What is the [...] Description 01/13/2025 1:15 PM EDT Office Visit [facility] OPTOMETRY [address] [place] [address] TarClaudette zhang, OD [address] [place] [address] 03/14/2025 2:30 PM EDT Office Visit [facility] MEDICINE [address] [place] [address] Aparna Shaw FNP [address] [place] [address] documented as of this encounter Visit Diagnoses Not on filedocumented in this encounter Additional Health Concerns Assessment Noted Time PHQ-9 Depression Total Score: 24 025 2:59 PM EDT documented as of this encounter Care Teams Invoice Classification Clerk Relationship Specialty Start Date End Date Aparna Shaw FNP [address] [place] [address] PCP - General Family Medicine 05/18/24 documented as of this encounter
--- OUTSIDE RECORDS SUMMARY | 2024-12-29 18:11 | XMS_ITS | Encounter Summary ---
Author Organization [employer] Address [address] [facility] 7t [place] [address] Care Team Providers Care Entertainment Director Name Role Phone Radha Sebastian [employer] Primary Care Provider [phone] [place] [facility] Primary Care Provider [phone] Encounter Details Date Type Department Care Team (Late st Contact Info) Description 03/17/2024 Orders Only [facility] [address] [place] [address] Radha Sebastian FNP [address] [place] [address] Social History Tobacco Use Types Packs/Day Years [...] 1:15 PM EDT Office Visit [facility] OPTOMETRY [address] [place] [address] Tarka, Claudette, OD [address] [place] [address] 03/14/2025 2:30 PM EDT Office Visit [facility] MEDICINE [address] [place] [address] Aparna Shaw FNP [address] [place] [address] documented as of this encounter Visit Diagnoses Not on filedocumented in this encounter Additional Health Concerns Assessment Noted Time PHQ-9 Depression Total Score: 24 024 1:55 PM EDT documented as of this encounter Care Teams Entertainment Director Relationship Specialty Start Date End Date Radha Sebastian FNP [address] [place] [address] PCP - General Family Medicine 02/20/23 05/17/24 Aparna Shaw FNP [address] [place] [address] PCP - General Family Medicine 05/18/24 documented as of this encounter
--- OUTSIDE RECORDS SUMMARY | 2024-12-29 18:11 | XMS_ITS | Encounter Summary ---
Author Organization [employer] Address [address] [facility] 7t [place] [address] Care Team Providers Care Pipe Fitter Apprentice Name Role Phone Radha Sebastian [facility] Primary Care Provider [phone] [place] [facility] Primary Care Provider [phone] Reason for Visit * Reason Comments Med Refill Encounter Details Date Type Department Care Team ([facility] Contact Info) Description 01/07/2023 Refill [facility] WALK-IN CENTER [address] [place] [address] Shakira Beard FNP Social History Tobacco Use Types Packs/Day Years Used Date Smoking Tobacco: Every Day Cigarettes Passive Smoke Exposure: Current Smokeless Tobacco: Never Comments Unknown Sex and Gender Information Value Date Recorded Sex Assigned at Female 07/15/2022 10:38 AM EDT Legal Sex Female 10:38 AM EDT Gender Identity Female 07/15/2022 10:38 AM EDT Sexual Orientation Straight 07/15/2022 10 :38 AM EDT COVID-19 Exposure Response Date Recorded In the last 10 days, have yo u been in contact with someone who was confirmed or suspected to have Coronavirus/COVID-19? No / Unsure 12/20/2022 1:18 PM EDT documented as of this encounter Miscellaneous Notes * Telephone Encounter - WIN Lei - 01/07/2023 3:51 PM EDT Approving, but needs appt for additional refills. documented in this encounter Plan of Treatment Upcoming Encounters Date Type Department Care Team ([facility] Contact Info) Description 01/13/2025 1:15 PM EDT Office Visit [facility] OPTOMETRY [address] [place] [address] Zionvicente Claudette, OD [address] [place] [address] 03/14/2025 2:30 PM EDT Office Visit [facility] MEDICINE [address] [place] [address] Aparna Shaw FNP [address] [place] [address] documented as of this encounter Visit Diagnoses Not on filedocumented in this encounter Additional Health Concerns Assessment Noted Time PHQ-9 Depression Total Score: 24 023 1:31 PM EDT documented as of this encounter Care Teams Pipe Fitter Apprentice Relationship Specialty Start Date End Date Radha Sebastian FNP [address] [place] [address] PCP - General Family Medicine 02/20/23 05/17/24 Aparna Shaw FNP [address] [place], [place] [id number] PCP - General Family Medicine 05/18/24 documented as of this encounter
--- OUTSIDE RECORDS SUMMARY | 2024-12-29 18:11 | XMS_ITS | Clinical Summary ---
Author Organization [facility] ity Address [address] [place] [address] Care Team Providers Care Client Delivery Specialist Name Role Phone Leonard Delgadillo MD Primary Care Provide r Social History Tobacco Use Types Packs/Day Years Used Date Smoking Tobacco: Never Assessed Comments Unknown Sex and Gender Information Value Date Recorded Sex Assigned at Not on file Legal Sex Female 6:03 PM EST Gender Identity Not on file Sexual Orientation Not on file Plan of Treatment Health Maintenance Due Date Last Done Comments Breast Cancer Screening 1979 DTaP,Tdap,and Td Vaccines (1 - Tdap) 1998 Hepatitis B Vaccines (1 of 3 - 19+ 3-dose series) 1998 Cervical Cancer Screening: P ap Smear 2000 COVID-19 Vaccine (2023-2 5 season) 2024 Influenza Vaccine (Season Ended) 2025 HIB Vaccines Aged Out No longer eligi [...] patient's age to complete this topic Meningococcal B Vaccine Aged Out No l onger eligible based on patient's age to complete [...] age to complete this topic Care Teams Client Delivery Specialist Relationship Specialty Start Date End Date Leonard Delgadillo MD PCP - General Internal Medicine 04/14/19
--- OUTSIDE RECORDS SUMMARY | 2024-12-29 18:11 | XMS_ITS | Encounter Summary ---
Author Organization [employer] Address [address] [place] [address] [address]t [place] [address] Care Team Providers Care Supervisor Operations Name Role Phone Radha Sebastian [facility] Primary Care Provider [phone] LakewoodAparna [facility] Primary Care Provider [phone] Reason for Visit * Reason Comments Med Refill Encounter Details Date Type Department Care Team (Late st Contact Info) Description 10/23/2022 Refill [facility] MEDICINE [address] [place] [address] Robert De La O FNP Social History Tobacco Use Types Packs/Day [...] Encounters Date Type Department Care Team (Late Contact Info) Description 01/13/2025 1:15 PM EDT Office Visit [facility] OPTOMETRY [address] [place] [address] Tarka, Claudette, OD [address] [place] [address] 03/14/2025 2:30 PM EDT Office Visit [facility] MEDICINE [address] [place] [address] LakewoodAparna [facility] [address] [place] [address] documented as of this encounter Visit Diagnoses Not on filedocumented in this encounter Care Teams Supervisor Operations Relationship Specialty Start Date End Date Radha Sebastian FNP [address] [place] [address] PCP - General Family Medicine 02/20/23 05/17/24 Aparna Shaw FNP [address] [place] [address] PCP - General Family Medicine 05/18/24 documented as of this encounter
--- OUTSIDE RECORDS SUMMARY | 2024-12-29 18:11 | XMS_ITS | Encounter Summary ---
Author Organization [employer] Address [address] [facility] [address] [place] [address] Care Team Providers Care Airline Transport Pilot Name Role Phone Radha Sebastian [facility] Primary Care Provider [phone] [place], [facility] Primary Care Provider [phone] Reason for Visit * Reason Comments Med Refill Encounter Details Date Type Department Care Team (Late Contact Info) Description 01/23/2023 Refill [facility] [address] [place] [address] Shakira Beard FNP Social History Tobacco Use [...] * Telephone Encounter - WIN Lei - 01/24/2023 9:48 AM EDT Approving, but needs appt for additional refills. documented in this encounter Plan of Treatment Upcoming Encounters Date Type Department Care Team ([facility] Contact Info) Description 01/13/2025 1:15 PM EDT Office Visit [facility] [address] [place] [address] TarkaClaudette, OD [address] [place] [address] 03/14/2025 2:30 PM EDT Office Visit [facility] [address] [place] [address] Aparna Shaw FNP [address] [place] [address] documented as of this encounter Visit Diagnoses Not on filedocumented in this encounter Additional Health Concerns Assessment Noted Time PHQ-9 Depression Total Score: 24 023 1:31 PM EDT documented as of this encounter Care Teams Airline Transport Pilot Relationship Specialty Start Date End Date Radha Sebastian FNP [address] [place] [id number] PCP - General Family Medicine 02/20/23 05/17/24 Aparna Shaw FNP [address] [place] [id number] PCP - General Family Medicine 05/18/24 documented as of this encounter
--- OUTSIDE RECORDS SUMMARY | 2024-12-29 18:11 | XMS_ITS | Encounter Summary ---
Author Organization [employer] Address [address] [facility] [address] [place] [address] Care Team Providers Care [employer] Consultant Name Role Phone [facility] Primary Care Provider [phone] Encounter Details Date Type Department Care Team ([facility] st Contact Info) Description 07/05/[address] [facility] [address] [place] [address] [place] [facility] [address] [place] [address] Social History Tobacco Use Types Packs/Day Years [...] Description 01/13/2025 1:15 PM EDT Office Visit [facility] [address] [place] [address] Claudette Rea, OD [address] [place] [address] 03/14/2025 2:30 PM EDT Office Visit [facility] [address] [place] [address] Aparna Shaw FNP [address] [place] [address] documented as of this encounter Visit Diagnoses Not on filedocumented in this encounter Additional Health Concerns Assessment Noted Time PHQ-9 Depression Total Score: 24 024 1:55 PM EDT documented as of this encounter Care Teams [employer] Consultant Relationship Specialty Start Date End Date Aparna Shaw FNP [address] [place] [address] PCP - General Family Medicine 05/18/24 documented as of this encounter
--- OUTSIDE RECORDS SUMMARY | 2024-12-29 18:11 | XMS_ITS | Encounter Summary ---
Author Organization [employer] Address [address] [facility] [address] [place] [address] Care Team Providers Care Warble Saw Operator Name Role Phone Valeria [facility] Primary Care Provider [phone] Reason for Visit * Reason Onset Date Comments Med Refill 09/30/2024 Encounter Details Date Type Department Care Team (Late st Contact Info) Description 09/30/2024 Refill [facility] [address] [place] [address] Radha Sebastian FNP [address] [place] [address] Social History Tobacco Use Types Packs/Day Years [...] Description 01/13/2025 1:15 PM EDT Office Visit [facility] [address] [place] [address] Tarka, Claudette, OD [address] [place] [address] 03/14/2025 2:30 PM EDT Office Visit [facility] [address] [place] [address] Aparna Shaw FNP [address] [place] [address] documented as of this encounter Visit Diagnoses Not on filedocumented in this encounter Additional Health Concerns Assessment Noted Time PHQ-9 Depression Total Score: 24 024 1:55 PM EDT documented as of this encounter Care Teams Warble Saw Operator Relationship Specialty Start Date End Date Aparna Shaw FNP [address] [place] [address] PCP - General Family Medicine 05/18/24 documented as of this encounter
--- OUTSIDE RECORDS SUMMARY | 2024-12-29 18:11 | XMS_ITS | Encounter Summary ---
Author Organization [employer] Address [address] [facility] [address] [place] [address] Care Team Providers Care Television Equipment Operator Name Role Phone Valeria Aparna [employer]SULTANT Primary Care Provider [phone] Encounter Details Date Type Department Care Team ([facility] st Contact Info) Description 12/29/2024 Orders Only [facility] OPTOMETRY [address] [place] [address] Claudette Rea, OD [address] [place] [address] Dry eyes, bilateral (Primary Dx); Other chronic allergic conjunctivitis of both eyes; Ocular discharge Social History Tobacco Use Types Packs/Day Years [...] on file documented as of this encounter Progress Notes * Claudette Rea, ANTHONY - 12/29/2024 2:50 PM EDT Assessment/Plan Diagnoses and all orders for this visit: Dry eyes, bilateral - polyvinyl alcohol (Liquifilm Tears) 1.4 % ophthalmic solution; Administer 1 drop into both eyes if needed for dry eyes. Other chronic allergic conjunctivitis of both eyes - prednisoLONE acetate (Pred-Forte) 1 % ophthalmic suspension; Administer 1 drop into both eyes 4 times daily for 14 days. 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 Lotemax was not covered by insurance, ordered Pred Forte today instead. - Dextran hypromellose ATs not covered, Rx'd Polyvinyl alcohol drops instead today documented in this encounter Plan of Treatment Upcoming Encounters Date Type Department Care Team (Late st Contact Info) Description 01/13/2025 1:15 PM EDT Office Visit [facility] [address] [place] [address] Claudette Rea OD [address] [place] [address] 03/14/2025 2:30 PM EDT Office Visit [facility] [address] [place] [address] Aparna Shaw FNP [address] [place] [address] documented as of this encounter Visit Diagnoses Diagnosis Dry eyes, bilateral- Primary Other chronic allergic conjunctivitis of both eyes Ocular discharge documented in this encounter Additional Health Concerns Assessment Noted Time PHQ-9 Depression Total Score: 24 025 2:59 PM EDT documented as of this encounter Care Teams Television Equipment Operator Relationship Specialty Start Date End Date Aparna Shaw FNP [address] [place] [address] PCP - General Family Medicine 05/18/24 documented as of this encounter
--- OUTSIDE RECORDS SUMMARY | 2024-12-29 18:11 | XMS_ITS | Clinical Summary ---
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 mammographic evidence of malignancy. ASSESSMENT: BI-RADS BI-RADS 1 - Negative RECOMMENDATION: Routine annual mammography screening. 1 year F/U This examination should not preclude the clinical evaluation of a suspicious palpable abnormality. This patient's information was entered into a reminder system with a target due date for their next mammogram. Electronically signed by: Nasima Cortez DO 10/22/2024 03:52 PM EST RP Dictated By: Nasima Cortez DO Signed By: <Electronically signed by Nasima Cortez DO in OV> 10/22/24 1552 DD/ 1306 TD/TT: 10/12/24 1320 Historiography Professor: [facility] WATER POLLUTION SCIENTIST IMG BI PROCEDURES Final Resul t * (ABNORMAL) Lipid Panel, Standard (08/27/2024 11:27 AM EST) Triglycerides 183(H) <150 mg/dL [facility] Comment:Desirable Triglyceri de: less than 150 mg/dLBorderline High Triglyceride 150-199 mg/dLHigh Triglyceride: 200-499 mg/dLVery High Triglyceride: greater than or equal to 5OO mg/dL Cholesterol 243(H) <200 mg/dL [facility] Comment:Desirable Cholestero l: less than 200 mg/dLBorderline High Cholesterol: 200-239 mg/dLHigh Cholesterol: greater than 239 mg/dL LDL Cholesterol Calculated 158(H) <100 mg/dL [facility] Comment:Desirable LDL: less than 100 mg/dLNear Optimal/Above Optimal LDL: 110- 129 mg/dLBorderline High LDL: 130-159 mg/dLHigh LDL: 160-189 mg/dLVery High LDL: greater than or equal to 190 mg/dL HDL Cholesterol 49 >40 mg/dL [facility] Comment:Desirable HDL: great er than 40 mg/dL Note: This HDL assay may give artificially low results in patients with liver disease. Blood Venous blood specimen / Unknown 08/27/2024 11:27 AM EST 08/27/2024 1:11 PM EST [facility] WATER POLLUTION SCIENTIST LAB BLOOD ORDERABLES Final Re sult Performing Organization Address City/[facility]/ZIP Co de Phone Number [facility] [address] [place] [phone] * HPV mRNA E6/E7 w/Reflex to HPV Genotypes 16, 18/45 (01/07/2024 3:15 PM EDT) HPV nRNA E6/E7 Not Detected Not Detected [facility] Comment:Methodology: Transcr iption-Mediated AmplificationThis assay detects E6/E7 viral messenger RNA (mRNA) from 14high-risk HPV types (16,18,31,33,35,39,45,51,52,56,58,59,66,68).Cervical sources are required for HPV testing.If a vaginal source from a patient who has had atotal hysterectomy with removal of cervix wassubmitted, please contact the testing laboratoryfor alternative testing options.For additional information, please refer [email or web address]/faq/NXZ540e7(This link if provided for information/educational purposes only.)THIS TEST WAS PERFORMED AT:[facility] [place] [id number] SMALL MD HPV mRNA E6/E7 [facility] HPV 16 RNA [facility] HPV 18/45 RNA [facility] 01/07/2024 3:15 PM EDT 01/09/2024 7:30 AM EDT Radha Sebastian [facility] CYTOLOGY ORDERABLES Final R esult Performing Organization Address City/[facility]/ZIP Co de Phone Number [facility] [address] [place] [phone] * Pap Smear (01/07/2024 3:15 PM EDT) 01/07/2024 3:15 PM EDT 01/09/2024 7:30 AM EDT Narrative [facility] - 01/26/2024 11:54 AM EDT ----- ------- Name: Clementina Peng ? Age/Sex: 43/F ? : 1980 Unit#: [id number] ?? Attend Dr: Radha Sebastian NP ?Re01/07/24 ?Status: DEP REF ? Location: HO.HHCLNP ? Disch: ? ----- ------- SPEC : [id number] ? RECD: 01/09/24-729 ? STATUS: ??SOUT ? REQ NUM: [id number] ? ROBBY: 01/07/24-1514 ? SUBM DR: Radha Sebastian NP ? ENTERED: ??01/09/24-904 ?SP TYPE: Pap Smr ?OTHR : ? ORDERED: ??Pap Smear ? Interpretation ?? Satisfactory for evaluation. ?? No endocervical cells seen. ?? Negative for intraepithelial lesion or malignancy. ?HPV mRNA E6/E7: ?NOT DETECTED ? This assay detects E6/E7 viral messenger RNA (mRNA) from 14 high-risk HPV types (16, 18, ?? 31, 33, 35, 39, 45, 51, 52, 56, 58, 59, 66, 68) ?? HPV testing performed by [facility], [place], [place]. ??See reference laboratory ?? portion of the EMR for entire report. ?Clinical Information LMP: Unknown date Previous PAP test: Unknown date/findings ? Material Received ?? ThinPrep-Vaginal/Cervical ----- ------- Signed (signature on file) ZAYNAB Dowd (ASCP) 01/26/24 1154 ? ----- ------- ? END OF REPORT ? [facility] CYTOLOGY ORDERABLES Final R esult Performing Organization Address [facility] Co de Phone Number [facility] [address] [place] [address] [phone] * HIV-1 RNA, Quantitative, Real-Time PCR with Reflex to Genotype (RTI, PI, Integrase) (02/26/2023 10:33 AM EDT) [facility] HIV 1 RNA, QN PCR NOT DETECTED copies/mL [facility], HIV 1 RNA, QN PCR NOT DETECTED Log copies/mL [facility], Comment: REFERENCE RANGE: NOT DETECTED copies/mL ?NOT DETECTED ??Log copies/mL This test was performed using Real-Time Polymerase Chain Reaction. Reportable range is 20 to 10,000,000 copies/mL (1.30-7.00 Log copies/mL). 02/26/2023 10:3 3 AM EDT 02/26/2023 10:34 AM EDT Narrative [facility] - 03/02/2023 3:11 PM EDT FASTING:YES FASTING: YES [employer] [facility] BLOOD ORDERABLES Final Resu lt Performing Organization Address City/[facility]/ZIP Co de Phone Number [facility] [address] [facility], [place] [address] [facility], [address] [place] [address] from Last 3 Months or Most Recently Relevant to Health Maintenance Insurance [facility] Care Teams Dog Beautician Relationship Specialty Start Date End Date Aparna Shaw FNP [address] [place] [phone] PCP - General Family Medicine 05/18/24
--- OUTSIDE RECORDS SUMMARY | 2024-12-29 18:11 | XMS_ITS | Encounter Summary ---
Author Organization [employer] Address [address] [facility] 7t [place] [address] Care Team Providers Care Research Laboratory Technician Name Role Phone Radha Sebastian [facility] Primary Care Provider [phone] [facility] Primary Care Provider [phone] Reason for Visit * Reason Comments Med Refill Encounter Details Date Type Department Care Team ([facility] Contact Info) Description 04/01/2023 Refill [facility] [address] [place] [address] Radha Sebastian FNP [address] [place] [address] Mixed anxiety and depressive disorder Social History Tobacco Use Types Packs/Day Years Used Date Smoking Tobacco: Every Day Cigarettes Passive Smoke Exposure: Current Smokeless Tobacco: Never Alcohol Use Standard Drinks/Week Comments Not Currently 0 (1 standard drink = 0.6 oz pur e alcohol) occasional Depression Answer Date Recorded Patient Health Questionnaire-9 Score 24 02/26/2023 Depression Answer Date Recorded Patient Health Questionnaire-2 [...] encounter Miscellaneous Notes * Telephone Encounter - Jessica Villatoro - 04/03/2023 11:51 AM EDT Tc from patient requesting a med refill on medication QUEtiapine (SEROquel) 50 MG tablet. documented in this encounter Plan of Treatment Upcoming Encounters Date Type Department Care Team (Late st Contact Info) Description 01/13/2025 1:15 PM EDT Office Visit [facility] [address] [place] [address] TarkaClaudette, OD [address] [place] [address] 03/14/2025 2:30 PM EDT Office Visit [facility] [address] [place] [address] Aparna Shaw FNP [address] [place] [address] documented as of this encounter Visit Diagnoses Diagnosis Mixed anxiety and depressive disorder Dysthymic disorder documented in this encounter Additional Health Concerns Assessment Noted Time PHQ-9 Depression Total Score: 24 023 9:10 AM EDT documented as of this encounter Care Teams Research Laboratory Technician Relationship Specialty Start Date End Date Radha Sebastian FNP [address] [place] [address] PCP - General Family Medicine 02/20/23 05/17/24 Aparna Shaw FNP [address] [place] [phone] PCP - General Family Medicine 05/18/24 documented as of this encounter
--- OUTSIDE RECORDS SUMMARY | 2024-12-29 18:11 | XMS_ITS | Encounter Summary ---
Author Organization [employer] Address [address] [facility] 7t [place] [address] Care Team Providers Care Office Runner Name Role Phone Radha Sebastian [facility] Primary Care Provider [phone] [facility] Primary Care Provider [phone] Reason for Visit * Reason Comments Med Refill Encounter Details Date Type Department Care Team ([facility] Contact Info) Description 02/18/2023 Refill [facility] [address] [place], [place] [phone] Shakira Beard FNP Social History Tobacco Use [...] suspected to have Coronavirus/COVID-19? No / Unsure 02/18/2023 2:13 PM EDT documented as of this encounter Plan of Treatment Upcoming Encounters Date Type Department Care Team ([facility] Contact Info) Description 01/13/2025 1:15 PM EDT Office Visit [facility] [address] [place], [place] [phone] Claudette Rea, OD [address] [place] [address] 03/14/2025 2:30 PM EDT Office Visit [facility] [address] [place] [address] Aparna Shaw FNP [address] [place] [address] documented as of this encounter Visit Diagnoses Not on filedocumented in this encounter Additional Health Concerns Assessment Noted Time PHQ-9 Depression Total Score: 24 023 1:31 PM EDT documented as of this encounter Care Teams Office Runner Relationship Specialty Start Date End Date Radha Sebastian FNP [address] [place] [address] PCP - General Family Medicine 02/20/23 05/17/24 Aparna Shaw FNP [address] [place] [address] PCP - General Family Medicine 05/18/24 documented as of this encounter
--- OUTSIDE RECORDS SUMMARY | 2024-12-29 18:11 | XMS_ITS | Encounter Summary ---
Author Organization [employer] Address [address] [facility] 7t [place] [address] Care Team Providers Care Developmental Services Worker Name Role Phone Radha Sebastian [facility] Primary Care Provider [phone] [facility] Primary Care Provider [phone] Encounter Details Date Type Department Care Team (Late st Contact Info) Description 10/29/2023 Abstract [facility] [address] [place] [address] Radha Sebastian FNP [address] [place] [address] Social History Tobacco Use Types Packs/Day Years Used Date Smoking Tobacco: Every Day Cigarettes Passive Smoke Exposure: Current Smokeless Tobacco: Never Alcohol Use Standard Drinks/Week Comments Not Currently 0 (1 standard drink = 0.6 oz pur e alcohol) occasional Depression Answer Date Recorded Patient Health Questionnaire-9 Score 23 10/08/2023 Patient Health Questionnaire-9 Score 23 10/08/2023 Last PHQ-9: Questionnaire Data Not on file 0 10/08/2023 Housing Stability Answer Date Recorded What is [...] Date Recorded Patient Health Questionnaire-2 Score 6 10/08/2023 Education Answer Date Recorded What is the [...] Description 01/13/2025 1:15 PM EDT Office Visit [facility] [address] [place] [address] Tarka, Claudette, OD [address] [place] [address] 03/14/2025 2:30 PM EDT Office Visit [facility] [address] [place] [address] Aparna Shaw FNP [address] [place] [address] documented as of this encounter Visit Diagnoses Not on filedocumented in this encounter Additional Health Concerns Assessment Noted Time PHQ-9 Depression Total Score: 024 2:17 PM EST documented as of this encounter Care Teams Developmental Services Worker Relationship Specialty Start Date End Date Radha Sebastian FNP [address] [place] [phone] PCP - General Family Medicine 02/20/23 05/17/24 Aparna Shaw FNP [address] [place] [address] PCP - General Family Medicine 05/18/24 documented as of this encounter
[2024-12-29 18:27] LABS: Amphetamine Screen Urine Not Detected (Not Detect); Barbiturates, Urine Not Detected (Not Detect); Benzodiazepines Screen Urine Not Detected (Not Detect); Buprenorphine Scr Not Detected (Not Detect); Cannabinoid Screen Urine Not Detected (Not Detect); Cocaine Screen Urine POSITIVE (Not Detect); Fentanyl, urine Not Detected (Not Detect); Methadone Screen, Urine Not Detected (Not Detect); Opiate Screen Urine Not Detected (Not Detect); Oxycodone Screen Urine Not Detected (Not Detect); Phencyclidine Screen Urine Not Detected (Not Detect)
== END 2024-12-29 15:57 | disposition home or self-care (01) ==
LOC: HO.HHCL 15:56
PROVIDERS: Visit Provider Registered Nurse
DX: F41.9 Anxiety disorder, unspecified (principal)
CPT/HCPCS: 80307

== ENCOUNTER 2025-01-05 13:59 | Outpatient (AMB) | payer MEDICAID, SELFPAY ==
[2025-01-05 14:07] VITALS: BP 109/56; PULSE 62; RESP 16; O2SAT 96; BMI 31.7
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
--- OUTSIDE RECORDS SUMMARY | 2025-01-05 16:49 | XMS_ITS | Encounter Summary ---
Author Organization [employer] Address 75 [facility] 7t [place] [address] Care Team Providers Care Lead Machinist Name Role Phone Radha Sebastian [facility] Primary Care Provider [phone] [facility] Primary Care Provider [phone] Reason for Visit * Reason Onset Date Comments FYI 03/19/2024 Encounter Details Date Type Department Care Team ([facility] st Contact Info) Description 03/19/2024 Telephone [facility] MEDICINE [address] [place] [address] Radha Sebastian FNP [address] [place] [address] FYI Social History Tobacco Use Types Packs/Day [...] visit at 3:15. Please contact pt at [phone]. documented in this encounter Plan of Treatment Upcoming Encounters Date Type Department Care Team (Late st Contact Info) Description 01/13/2025 1:15 PM EDT Office Visit [facility] OPTOMETRY [address] [place] [address] TarClaudette zhang, OD [address] [place] [address] 03/14/2025 2:30 PM EDT Office Visit [facility] MEDICINE [address] [place] [address] [place], Aparna, SAFETY ADVISOR [address] [place] [address] documented as of this encounter Visit Diagnoses Not on filedocumented in this encounter Additional Health Concerns Assessment Noted Time PHQ-9 Depression Total Score: 024 1:55 PM EDT documented as of this encounter Care Teams Lead Machinist Relationship Specialty Start Date End Date Radha Sebastian FNP [address] [place] [address] PCP - General Family Medicine 02/20/23 05/17/24 Aparna Shaw FNP [address] [place] [address] PCP - General Family Medicine 05/18/24 documented as of this encounter
--- OUTSIDE RECORDS SUMMARY | 2025-01-05 16:49 | XMS_ITS | Encounter Summary ---
Author Organization [employer] Address 75 [facility] 7t [place] [address] Care Team Providers Care Bead Maker Name Role Phone Radha Sebastian [facility] Primary Care Provider [phone] [place] [facility] Primary Care Provider [phone] Reason for Visit * Reason Comments Med Refill Encounter Details Date Type Department Care Team ([facility] Contact Info) Description 01/07/2023 Refill [facility] WALK[facility]IN C[facility] [address] [place] [address] Shakira Beard FNP Social History Tobacco Use [...] Upcoming Encounters Date Type Department Care Team ([facility] Contact Info) Description 01/13/2025 1:15 PM EDT Office Visit [facility] OPTOMETRY [address] [place] [address] Zionvicente Claudette, OD [address] [place] [address] 03/14/2025 2:30 PM EDT Office Visit [facility] MEDICINE 230 [place] [address] Aparna Shaw FNP 230 [place] [address] documented as of this encounter Visit Diagnoses Not on filedocumented in this encounter Additional Health Concerns Assessment Noted Time PHQ-9 Depression Total Score: 24 023 1:31 PM EDT documented as of this encounter Care Teams Bead Maker Relationship Specialty Start Date End Date Radha Sebastian FNP 230 [place] [address] PCP - General Family Medicine 02/20/23 05/17/24 Aparna Shaw FNP 230 [place], [place] [id number] PCP - General Family Medicine 05/18/24 documented as of this encounter
--- OUTSIDE RECORDS SUMMARY | 2025-01-05 16:49 | XMS_ITS | Encounter Summary ---
Author Organization [employer] Address 75 [facility] 7t [place] [address] Care Team Providers Care Painter And Grader Cork Name Role Phone Radha Sebastian [facility] Primary Care Provider [phone] [facility] Primary Care Provider [phone] Reason for Visit * Reason Comments Med Refill Encounter Details Date Type Department Care Team ([facility] Contact Info) Description 12/15/2023 Refill [facility] MEDICINE [address] [place] [address] Radha Sebastian FNP [address] [place] [address] Social History Tobacco Use Types Packs/Day Years [...] Description 01/13/2025 1:15 PM EDT Office Visit [facility] OPTOMETRY [address] [place] [address] Tarka, Claudette, OD [address] [place] [address] 03/14/2025 2:30 PM EDT Office Visit [facility] MEDICINE [address] [place] [address] Aparna Shaw FNP 230 [place] [address] documented as of this encounter Visit Diagnoses Not on filedocumented in this encounter Additional Health Concerns Assessment Noted Time PHQ-9 Depression Total Score: 24 024 1:55 PM EDT documented as of this encounter Care Teams Painter And Grader Cork Relationship Specialty Start Date End Date Radha Sebastian FNP [address] [place] [address] PCP - General Family Medicine 02/20/23 05/17/24 Aparna Shaw FNP 230 [place] [address] PCP - General Family Medicine 05/18/24 documented as of this encounter
--- OUTSIDE RECORDS SUMMARY | 2025-01-05 16:49 | XMS_ITS | Encounter Summary ---
Author Organization [employer] Address [address] [place] [address] 7t [place] [address] Care Team Providers Care Dog Handler Name Role Phone Radha Sebastian [facility] Primary Care Provider [phone] [place] [facility] Primary Care Provider [phone] Reason for Visit * Reason Comments Med Refill Encounter Details Date Type Department Care Team ([facility] [place] Contact Info) Description 02/12/2023 Refill [facility] 230 [place] [address] Shakira Beard FNP Social History Tobacco Use [...] Upcoming Encounters Date Type Department Care Team ([facility] Contact Info) Description 01/13/2025 1:15 PM EDT Office Visit [facility] OPTOMETRY [address] [place] [address] TarClaudette zhang, OD [address] [place] [address] 03/14/2025 2:30 PM EDT Office Visit [facility] MEDICINE 230 [place] [address] TivertonAparna [facility] 230 [place] [address] documented as of this encounter Visit Diagnoses Not on filedocumented in this encounter Additional Health Concerns Assessment Noted Time PHQ-9 Depression Total Score: 023 1:31 PM EDT documented as of this encounter Care Teams Dog Handler Relationship Specialty Start Date End Date Radha Sebastian FNP 230 [place] [address] PCP - General Family Medicine 02/20/23 05/17/24 Aparna Shaw FNP [address] [place] [address] PCP - General Family Medicine 05/18/24 documented as of this encounter
--- OUTSIDE RECORDS SUMMARY | 2025-01-05 16:49 | XMS_ITS | Encounter Summary ---
Author Organization [employer] Address 75 [facility] 7[place] [address] Care Team Providers Care Finish Sander Name Role Phone [facility] Primary Care Provider [phone] Reason for Visit * Reason Onset Date Comments Med Refill 09/30/2024 Encounter Details Date Type Department Care Team (Late st Contact Info) Description 09/30/2024 Refill [facility] MEDICINE [address] [place] [address] Radha Sebastian FNP [address] [place] [address] Social History Tobacco Use Types Packs/Day Years [...] Description 01/13/2025 1:15 PM EDT Office Visit [facility] OPTOMETRY [address] [place] [address] Tarka, Claudette, OD 267 [place] [address] 03/14/2025 2:30 PM EDT Office Visit [facility] MEDICINE [address] [place] [address] Aparna Shaw FNP [address] [place] [address] documented as of this encounter Visit Diagnoses Not on filedocumented in this encounter Additional Health Concerns Assessment Noted Time PHQ-9 Depression Total Score: 24 024 1:55 PM EDT documented as of this encounter Care Teams Finish Sander Relationship Specialty Start Date End Date Aparna Shaw FNP 230 [place] [address] PCP - General Family Medicine 05/18/24 documented as of this encounter
--- OUTSIDE RECORDS SUMMARY | 2025-01-05 16:49 | XMS_ITS | Encounter Summary ---
Author Organization [employer] Address 75 [facility] 7t [place] [address] Care Team Providers Care Plastic Hospital Products Assembler Name Role Phone Radha Sebastian [facility] Primary Care Provider [phone] [facility] Primary Care Provider [phone] Encounter Details Date Type Department Care Team (Late st Contact Info) Description 03/17/2024 Orders Only [facility] CHC MED & PEDS [address] [place] [address] Radha Sebastian FNP [address] [place] [address] Social History Tobacco Use Types Packs/Day Years [...] Description 01/13/2025 1:15 PM EDT Office Visit [facility] OPTOMETRY [address] [place] [address] Tarka, Claudette, OD [address] [place] [address] 03/14/2025 2:30 PM EDT Office Visit [facility] MEDICINE [address] [place] [address] Aparna Shaw FNP [address] [place] [address] documented as of this encounter Visit Diagnoses Not on filedocumented in this encounter Additional Health Concerns Assessment Noted Time PHQ-9 Depression Total Score: 24 024 1:55 PM EDT documented as of this encounter Care Teams [facility]astic [facility] Products Assembler Relationship Specialty Start Date End Date Radha Sebastian FNP [address] [place] [address] PCP - General Family Medicine 02/20/23 05/17/24 Aparna Shaw FNP [address] [place] [address] PCP - General Family Medicine 05/18/24 documented as of this encounter
--- OUTSIDE RECORDS SUMMARY | 2025-01-05 16:49 | XMS_ITS | Encounter Summary ---
Author Organization [employer] Address 75 [facility] 7t [place] [address] Care Team Providers Care Cloth Measurer Machine Name Role Phone Radha Sebastian [facility] Primary Care Provider [phone] [place] [facility] Primary Care Provider [phone] Encounter Details Date Type Department Care Team (Late st Contact Info) Description 10/29/2023 Abstract [facility] MEDICINE [address] [place] [address] Radha Sebastian FNP [address] [place] [address] Social History Tobacco Use Types Packs/Day Years Used Date Smoking Tobacco: Every Day Cigarettes Passive Smoke Exposure: Current Smokeless Tobacco: Never Alcohol Use Standard Drinks/Week Comments Not Currently 0 (1 standard drink = 0.6 oz pur e alcohol) occasional Depression Answer Date Recorded Patient Health Questionnaire-9 Score 10/08/2023 Patient Health Questionnaire-9 Score 10/08/2023 Last PHQ-9: Questionnaire Data Not on [...] Description 01/13/2025 1:15 PM EDT Office Visit [facility] OPTOMETRY [address] [place] [address] Tarka, Claudette, OD [address] [place] [address] 03/14/2025 2:30 PM EDT Office Visit [facility] MEDICINE [address] [place] [address] Aparna Shaw FNP [address] [place] [address] documented as of this encounter Visit Diagnoses Not on filedocumented in this encounter Additional Health Concerns Assessment Noted Time PHQ-9 Depression Total Score: 024 2:17 PM EST documented as of this encounter Care Teams Cloth Measurer Machine Relationship Specialty Start Date End Date Radha Sebastian FNP [address] [place] [address] PCP - General Family Medicine 02/20/23 05/17/24 Aparna Shaw FNP [address] [place] [address] PCP - General Family Medicine 05/18/24 documented as of this encounter
--- OUTSIDE RECORDS SUMMARY | 2025-01-05 16:49 | XMS_ITS | Encounter Summary ---
Author Organization [employer] Address [address] [place] [address] 7t [place] [address] Care Team Providers Care Pullman Conductor Name Role Phone Radha Sebastian [facility] Primary Care Provider [phone] [place] [facility] Primary Care Provider [phone] Reason for Visit * Reason Comments Med Refill Encounter Details Date Type Department Care Team (Late st Contact Info) Description 10/23/2022 Refill [facility] MEDICINE [address] [place] [address] Robert De La O FNP Social History [...] Description 01/13/2025 1:15 PM EDT Office Visit [facility] OPTOMETRY [address] [place] [address] Tarka, Claudette, OD [address] [place] [address] 03/14/2025 2:30 PM EDT Office Visit [facility] MEDICINE 230 [place] [address] [place] [facility] [address] [place] [address] documented as of this encounter Visit Diagnoses Not on filedocumented in this encounter Care Teams Pullman Conductor Relationship Specialty Start Date End Date Radha Sebastian FNP 230 [place] [address] PCP - General Family Medicine 02/20/23 05/17/24 Aparna Shaw FNP [address] [place] [address] PCP - General Family Medicine 05/18/24 documented as of this encounter
--- OUTSIDE RECORDS SUMMARY | 2025-01-05 16:49 | XMS_ITS | Encounter Summary ---
Author Organization [employer] Address 75 [facility] 7t [place] [address] Care Team Providers Care Assistant Sales Director Name Role Phone Radha Sebastian [facility] Primary Care Provider [phone] [place] [facility] Primary Care Provider [phone] Reason for Visit * Reason Comments Med Refill Encounter Details Date Type Department Care Team ([facility] [place] [facility] Contact Info) Description 02/18/2023 Refill [facility] WALK-IN CENTER 230 [place], [place] [id number] Shakira Beard FNP Social History Tobacco Use [...] Type Department Care Team ([facility] [place] [facility] Contact Info) Description 01/13/2025 1:15 PM EDT Office Visit [facility] OPTOMETRY [address] [place], [place] [phone] Claudette Rea, OD [address] [place] [address] 03/14/2025 2:30 PM EDT Office Visit [facility] MEDICINE [address] [place] [address] Aparna Shaw FNP [address] [place] [address] documented as of this encounter Visit Diagnoses Not on filedocumented in this encounter Additional Health Concerns Assessment Noted Time PHQ-9 Depression Total Score: 24 023 1:31 PM EDT documented as of this encounter Care Teams Assistant Sales Director Relationship Specialty Start Date End Date Radha Sebastian FNP 230 [place] [address] PCP - General Family Medicine 02/20/23 05/17/24 Aparna Shaw FNP [address] [place] [address] PCP - General Family Medicine 05/18/24 documented as of this encounter
--- OUTSIDE RECORDS SUMMARY | 2025-01-05 16:49 | XMS_ITS | Encounter Summary ---
Author Organization [employer] Address 75 [facility] 7t [place] [address] Care Team Providers Care Home Health Clinical Liaison Name Role Phone Radha Sebastian [facility] Primary Care Provider [phone] Valeria [facility] Primary Care Provider [phone] Reason for Visit * Reason Comments Med Refill Encounter Details Date Type Department Care Team (Late Contact Info) Description 01/23/2023 Refill [facility] WALK-IN CENTER [address] [place] [address] Shakira Beard FNP Social History Tobacco Use [...] Upcoming Encounters Date Type Department Care Team ([facility] Contact Info) Description 01/13/2025 1:15 PM EDT Office Visit [facility] OPTOMETRY [address] [place] [address] TarkaClaudette, OD [address] [place] [address] 03/14/2025 2:30 PM EDT Office Visit [facility] MEDICINE [address] [place] [address] Aparna Shaw FNP [address] [place] [address] documented as of this encounter Visit Diagnoses Not on filedocumented in this encounter Additional Health Concerns Assessment Noted Time PHQ-9 Depression Total Score: 24 023 1:31 PM EDT documented as of this encounter Care Teams Home Health Clinical Liaison Relationship Specialty Start Date End Date Radha Sebastian FNP [address] [place] [address] PCP - General Family Medicine 02/20/23 05/17/24 Aparna Shaw FNP [address] [place] [address] PCP - General Family Medicine 05/18/24 documented as of this encounter
--- OUTSIDE RECORDS SUMMARY | 2025-01-05 16:49 | XMS_ITS | Encounter Summary ---
Author Organization [employer] Address 75 [facility] 7t [place] [address] Care Team Providers Care Campus Recruiting Intern Name Role Phone Radha Sebastian [facility] Primary Care Provider [phone] [facility] Primary Care Provider [phone] Reason for Visit * Reason Comments Med Refill Encounter Details Date Type Department Care Team ([facility] Contact Info) Description 04/01/2023 Refill [facility] MEDICINE [address] [place] [address] Radha Sebastian FNP [address] [place] [address] Mixed anxiety and depressive disorder Social History [...] 01/13/2025 1:15 PM EDT Office Visit [facility] OPTOMETRY [address] [place] [address] TarkaClaudette, OD [address] [place] [address] 03/14/2025 2:30 PM EDT Office Visit [facility] MEDICINE [address] [place] [address] Aparna Shaw FNP [address] [place] [address] documented as of this encounter Visit Diagnoses Diagnosis Mixed anxiety and depressive disorder Dysthymic disorder documented in this encounter Additional Health Concerns Assessment Noted Time PHQ-9 Depression Total Score: 24 023 9:10 AM EDT documented as of this encounter Care Teams Campus Recruiting Intern Relationship Specialty Start Date End Date Radha Sebastian FNP [address] [place] [address] PCP - General Family Medicine 02/20/23 05/17/24 Aparna Shaw FNP [address] [place] [address] PCP - General Family Medicine 05/18/24 documented as of this encounter
--- OUTSIDE RECORDS SUMMARY | 2025-01-05 16:49 | XMS_ITS | Encounter Summary ---
Author Organization [employer] Address 75 [facility] 7t [place] [address] Care Team Providers Care Medical Sales Associate Name Role Phone Radha Sebastian [facility] Primary Care Provider [phone] [facility] Primary Care Provider [phone] Reason for Visit * Reason Comments Med Refill Encounter Details Date Type Department Care Team ([facility] Contact Info) Description 07/31/2023 Refill [facility] WALK-IN CENTER [address] [place] [address] [facility] 230 [place] [address] Migraine without aura and without status migrainosus, [...] Description 01/13/2025 1:15 PM EDT Office Visit [facility] OPTOMETRY [address] [place] [address] Tarka, Claudette, OD [address] [place] [address] 03/14/2025 2:30 PM EDT Office Visit [facility] MEDICINE [address] [place] [address] Aparna Shaw FNP [address] [place] [address] documented as of this encounter Visit Diagnoses Diagnosis Migraine without aura and without status migrainosus, not intractable documented in this encounter Additional Health Concerns Assessment Noted Time PHQ-9 Depression Total Score: 24 023 9:10 AM EDT documented as of this encounter Care Teams Medical Sales Associate Relationship Specialty Start Date End Date Radha Sebastian FNP [address] [place] [address] PCP - General Family Medicine 02/20/23 05/17/24 Aparna Shaw FNP [address] [place] [address] PCP - General Family Medicine 05/18/24 documented as of this encounter
--- OUTSIDE RECORDS SUMMARY | 2025-01-05 16:49 | XMS_ITS | Encounter Summary ---
Author Organization [employer] Address [address] [place] [address] 7t [place] [address] Care Team Providers Care Night Worker Name Role Phone Radha Sebastian [facility] Primary Care Provider [phone] Vining[place]parna [facility] Primary Care Provider [phone] Reason for Visit * Reason Comments Med Refill Encounter Details Date Type Department Care Team ([facility] Contact Info) Description 02/13/2023 Refill [facility] WALK-IN CENTER [address] [place] [address] Shakira Beard FNP Social History Tobacco Use [...] Upcoming Encounters Date Type Department Care Team ([facility] Contact Info) Description 01/13/2025 1:15 PM EDT Office Visit [facility] OPTOMETRY [address] [place] [address] TarClaudette zhang, OD [address] [place] [address] 03/14/2025 2:30 PM EDT Office Visit [facility] MEDICINE [address] [place] [address] ViningAparna [facility] [address] [place] [address] documented as of this encounter Visit Diagnoses Not on filedocumented in this encounter Additional Health Concerns Assessment Noted Time PHQ-9 Depression Total Score: 023 1:31 PM EDT documented as of this encounter Care Teams Night Worker Relationship Specialty Start Date End Date Radha Sebastian FNP 230 [place] [address] PCP - General Family Medicine 02/20/23 05/17/24 Aparna Shaw FNP [address] [place] [address] PCP - General Family Medicine 05/18/24 documented as of this encounter
--- OUTSIDE RECORDS SUMMARY | 2025-01-05 16:49 | XMS_ITS | Encounter Summary ---
Author Organization [employer] Address 75 [facility] 7t [place] [address] Care Team Providers Care Shellfish Shucker Name Role Phone [facility] Primary Care Provider [phone] Encounter Details Date Type Department Care Team ([facility] st Contact Info) Description 07/05/2024 Telephone [facility] MEDICINE [address] [place] [address] [facility] [address] [place] [address] Social History Tobacco Use Types Packs/Day Years [...] EDT Office Visit [facility] OPTOMETRY [address] [place] [address] Claudette Rea, OD [address] [place] [address] 03/14/2025 2:30 PM EDT Office Visit [facility] MEDICINE [address] [place] [address] Aparna Shaw FNP 230 [place] [address] documented as of this encounter Visit Diagnoses Not on filedocumented in this encounter Additional Health Concerns Assessment Noted Time PHQ-9 Depression Total Score: 24 024 1:55 PM EDT documented as of this encounter Care Teams Shellfish Shucker Relationship Specialty Start Date End Date Aparna Shaw FNP 230 [place] [address] PCP - General Family Medicine 05/18/24 documented as of this encounter
--- OUTSIDE RECORDS SUMMARY | 2025-01-05 16:49 | XMS_ITS | Clinical Summary ---
Author Organization [facility] ity Address [address] [place] [address] Care Team Providers Care Care Management Coordinator Name Role Phone Leonard Delgadillo MD Primary [...] age to complete this topic Care Teams Care Management Coordinator Relationship Specialty Start Date End Date Leonard Delgadillo MD PCP - General Internal Medicine 04/14/19
--- OUTSIDE RECORDS SUMMARY | 2025-01-05 16:49 | XMS_ITS | Encounter Summary ---
Author Organization [employer] Address [address] [facility] 7t [place] [address] Care Team Providers Care Manager Forensic Name Role Phone Radha Sebastian [facility] Primary Care Provider [phone] [place], [facility] Primary Care Provider [phone] Reason for Visit * Reason Comments Med Refill Encounter Details Date Type Department Care Team ([facility] Contact Info) Description 01/22/2023 Refill [facility] [address] [place] [address] Shakira Beard FNP Social History Tobacco Use [...] Upcoming Encounters Date Type Department Care Team ([facility] Contact Info) Description 01/13/2025 1:15 PM EDT Office Visit [facility] [address] [place] [address] TarkaClaudette, OD [address] [place] [address] 03/14/2025 2:30 PM EDT Office Visit [facility] [address] [place] [address] Aparna Shaw FNP [address] [place] [address] documented as of this encounter Visit Diagnoses Not on filedocumented in this encounter Additional Health Concerns Assessment Noted Time PHQ-9 Depression Total Score: 24 023 1:31 PM EDT documented as of this encounter Care Teams Manager Forensic Relationship Specialty Start Date End Date Radha Sebastian FNP [address] [place] [phone] PCP - General Family Medicine 02/20/23 05/17/24 Aparna Shaw FNP [address] [place] [phone] PCP - General Family Medicine 05/18/24 documented as of this encounter
--- OUTSIDE RECORDS SUMMARY | 2025-01-05 16:49 | XMS_ITS | Clinical Summary ---
Author Organization [employer] Address [address] [facility] 7t [place] [address] Care Team Providers Care Med Peds Name Role Phone Aparna Shaw [facility] Primary Care Provider [phone] Allergies Active Allergy Reactions Criticality Noted Date [...] for irritation. 100 each 024 Active fluocinolone (Napoleon-Smoothe/FS Body) 0.01 % external oil Apply topically [...] mouth Once per day. 90 tablet 3 025 Active diphenhydrAMINE (Banophen) 50 MG capsuleIndication s:Seasonal [...] week. 2 mL 11 025 2025 Active olopatadine (Pataday) 0.2 % ophthalmic solutionIndicatio [...] mouth Once per day. 90 capsule 1 2024 Discontinued(R eorder (will not trigger notification [...] mg) by mouth before breakfast. 30 capsule 025 2024 Discontinued fexofenadine (Eliana) 180 MG tablet TAKE [...] eorder (will not trigger notification to Pharmacy)) loteprednol (Lotemax) 0.5 % ophthalmic suspensionIndicat ions:Other chronic allergic conjunctivitis of both eyes Administer 1 drop into the left eye 4 times daily for 14 days. 10 mL 025 2024 Active Problems Problem Noted Date Diagnosed Date [...] and housing. Clementina received a letter from [employer] denying SSI benefits. This has been identified as main trigger for increase of sxs. Struggling with anxiety sxs in the past, but able to manage with medication. PLAN: (check all that apply) New/Additional Services needed PCP management On-site non-integrated services Off-site services for Behavioral Health Integration Plan Internal Follow up with I, referral to CM to assist with [facility] External OP therapy referral and OP psychiatry Referral Patient Self Plan Patient to utilize skills provided in intervention , Patient to reach out to [facility] ED team as needed, Comply with medication , [...] and housing. Clementina received a letter from [employer] denying SSI benefits. This has been identified [...] intervention , Patient to reach out to [facility] ED team as needed, Comply with medication , Patient to engage in OP therapy , and Patient to reach out to [facility] as needed Routine general medical exam [...] Denies thoughts of or suicide. Referral to [facility] and prescriber placed (declined N at [...] in services. PLAN: 1. Follow up with [facility]: Recommended for follow-up: 03/11/23 telehealth 2. Patient [...] for albuterol MDI w/ spacer sent to [facility]. Amenorrhea 07/29/2019 Overview (02/24/2023): Last Assessment & Plan: Reports LMP was May. Not using any [facility] currently. Denies any symptoms. Declines urine test today. States she will establish primary care at [facility]. I encouraged her to f/u for test and contraception as needed. Assessment & Plan (02/26/2023 1:51 PM EDT): Pelvic US for AUB Plan based on results Generalized anxiety disorder with panic attacks 07/21/2019 Homelessness 07/21/2019 Overview (12/20/2022): Last Assessment & Plan: Living at prison, [facility], with 14 month son. Encounters * This document contains information received from the source organization and may not represent a complete record from that organization. Date Type Department Care Team Description 12/29/2024 Orders Only [facility] [address] [place] [address] TarkaMary JoClaudette, OD Dry eyes, bilateral (Primary Dx); Other chronic allergic conjunctivitis of both eyes; Ocular discharge 12/29/2024 Travel 12/15/2024 3:30 PM EDT Office Visit [facility] [address] [place] [address] Tarka, Claudette, OD Ocular discharge (Primary Dx); Dry eyes, bilateral; Other chronic allergic conjunctivitis of both eyes; Retinal hemorrhage, right; Presbyopia 12/15/2024 Telephone [facility] [address] [place] [address] Aparna Shaw FNP 12/15/2024 Travel 12/15/2024 Telephone [facility] [address] [place] [address] Diana Xiao LPN Prior Authorization 12/13/2024 1:00 PM EDT Office Visit [facility] [address] [place] [address] Aparna Shaw FNP Class 1 obesity due to excess calories with serious comorbidity and body mass index (BMI) of 32.0 to 32.9 in adult (Primary Dx); Decreased hearing of left ear; Anxiety; Seasonal allergic rhinitis due to other allergic trigger; Dietary counseling; Exercise counseling 12/13/2024 Travel 12/01/2024 Refill [facility] [address] [place], [place] [phone] Aparna Shaw FNP Moderate episode of recurrent major depressive disorder ([facility]/HCC) 11/26/2024 Population Health Risk Score [facility] () Department [address] [place] [phone] Provider, Population Health Generic 11/09/2024 Telephone [facility] [address] [place] [address] Aparna Shaw FNP 11/04/2024 Refill [facility] [address] [place] [address] Aparna Shaw FNP Anxiety 10/24/2024 Refill [facility] [address] [place] [address] Radha Sebastian FNP 10/18/2024 1:00 PM EST Telemedicine [facility] [address] [place] [address] Aparna Shaw FNP Class 1 obesity due to excess calories with serious comorbidity and body mass index (BMI) of 32.0 to 32.9 in adult (Primary Dx); Vasomotor symptoms due to menopause 10/18/2024 Travel 10/15/2024 Telephone [facility] [address] [place], [place] [phone] [place] FNP chart prep from Last 3 Months Immunizations Name Administration [...] Description 01/13/2025 1:15 PM EDT Office Visit [facility] [address] [place] [address] Claudette Rea, OD [address] [place] [address] 03/14/2025 2:30 PM EDT Office Visit [facility] [address] [place] [address] Aparna Shaw FNP [address] [place] [address] Health Maintenance Due Date Last Done Comments [...] Vaccine (1 - 2023-2 5 season) 2024 Mammogram 10/12/2025 10/12/2024 Depression Screening 12/13/2025 12/13/2024, [...] Procedure Name Priority Date/Time Associated Diagnosis Comments DRUG MONITOR, PANEL 1, SCREEN, URINE Routine 12/29/2024 3:58 PM EDT Anxiety COLOR FUNDUS PHOTOGRAPHY - OD - RIGHT [...] Recently Relevant to Health Maintenance Results * (ABNORMAL) Drug Monitoring, Panel 1, Screen, Urine (12/29/2024 3:58 PM EDT) Opiate Screen Urine Not Detected Not Detect [facility] Comment:Opiate cut-off is 30 0 ng/mL.Positive results are unconfirmed and should not be used fornon-medical purposes. Barbiturates, Urine Not Detected Not Detect [facility] Comment:Barbiturate cut-off is 200 ng/mL.Positive results are unconfirmed and should not be used fornon-medical purposes. Phencyclidine Screen Urine Not Detected Not Detect [facility] Comment:Phencyclidine cut-of f is 25 ng/mL.Positive results are unconfirmed and should not be used fornon-medical purposes. Amphetamine Screen Urine Not Detected Not Detect [facility] Comment:Amphetamine cut-off is 1000 ng/mL.Positive results are unconfirmed and should not be used fornon-medical purposes. Benzodiazepines Screen Urine Not Detected Not Detect [facility] Comment:Benzodiazepine cut-o ff is 200 ng/mL.Positive results are unconfirmed and should not be used fornon-medical purposes. Cocaine Screen Urine POSITIVE(A) Not Detect [facility] Comment:Cocaine cut-off is 3 00 ng/mL.Positive results are unconfirmed and should not be used fornon-medical purposes. Cannabinoid Screen Urine Not Detected Not Detect [facility] Comment:Cannabinoid cut-off is 50 ng/mL.Positive results are unconfirmed and should not be used fornon-medical purposes. Methadone Screen, Urine Not Detected Not Detect ng/mL [facility] Comment:Methadone cut-off is 300 ng/mL.Positive results are unconfirmed and should not be used fornon-medical purposes. FENTANYL URINE Not Detected Not Detect [facility] Comment:Fentanyl cut-off is 1 ng/mL.Positive results are unconfirmed and should not be used fornon-medical purposes. Oxycodone Urine Screen Not Detected Not Detect ng/mL [facility] Comment:Oxycodone cut-off is 100 ng/mL.Positive results are unconfirmed and should not be used fornon-medical purposes. Buprenorphine Screen Not Detected Not Detect ng/mL [facility] Comment:Buprenorphine cut-of f is 5 ng/mL.Positive results are unconfirmed and should not be used fornon-medical purposes. Urine (Urine, Random) 12/29/2024 3:58 PM EDT 12/29/2024 6:00 PM EDT Jone Romano PMP LAB URINE ORDERABLES Final Re sult [facility] [address] [place] [address] [phone] * Color Fundus Photography - OD - Right Eye (12/15/2024 3:30 PM EDT) Narrative Claudette Rea, OD - 12/16/2024 9:52 AM EDT Images [...] EST Narrative 10/22/2024 3:55 PM EST ? [facility] ? [address] ?[place] [address] ? Mammography Report ? Signed ? Patient: Clementina Peng ?MR#: [id number] ?? 1946 ? : 1980 ?Acct:[id number] ? Age/Sex: 44 / F ?ADM Date: 10/12/24 ? Loc: HO.MAMMO ? Attending Dr: Aparna [place] CRAWLER DRAGLINE OPERATOR ? Ordering Physician: Valeria,Aparna CRAWLER DRAGLINE OPERATOR ?Results: 1Nega ?? tive ? Date of Service: 10/12/24 ?Follow Up: 1 Year From Orig ?? inal Mammogram ? Procedure(s): MM tomosynthesis screening BI ?? Accession Number(s): [id number] ? cc: Valeria,Aparna CRAWLER DRAGLINE OPERATOR ? EXAMINATION: ?? MM SCREENING DIGITAL BREAST [...] DD/ 1306 ? TD/TT: 10/12/24 1320 ? Scrap Separator: ? Procedure Note Letitia, Image - 10/22/2024 [facility] [address] [place] [address] Mammography Report Signed Patient: Clementina PengMR#: [id number] 1946 : 1980Acct:[id number] Age/Sex: 44 / FADM Date: 10/12/24 Loc: JAZLYN Attending Dr: Aparna Shaw CRAWLER DRAGLINE OPERATOR Ordering Physician: Aparna Shaw FNPResults: 1Nega tive Date of Service: 10/12/24Follow Up: 1 Year From Orig inal Mammogram Procedure(s): MM tomosynthesis screening BI Accession Number(s): [id number] cc: [facility] CRAWLER DRAGLINE OPERATOR EXAMINATION: MM SCREENING DIGITAL BREAST TOMOSYNTHESIS, BILATERAL [...] 10/22/24 1552 DD/ 1306 TD/TT: 10/12/24 1320 Scrap Separator: [facility] CRAWLER DRAGLINE OPERATOR IMG BI PROCEDURES Final Resul t * (ABNORMAL) Lipid Panel, Standard (08/27/2024 11:27 AM EST) Triglycerides 183(H) <150 mg/dL [facility] Comment:Desirable Triglyceri de: less than 150 mg/dLBorderline High Triglyceride 150-199 mg/dLHigh Triglyceride: 200-499 mg/dLVery High Triglyceride: greater than or equal to 5OO mg/dL Cholesterol 243(H) <200 mg/dL [facility] Comment:Desirable Cholestero l: less than 200 mg/dLBorderline High Cholesterol: 200-239 mg/dLHigh Cholesterol: greater than 239 mg/dL LDL Cholesterol Calculated 158(H) <100 mg/dL [facility] Comment:Desirable LDL: less than 100 mg/dLNear Optimal/Above Optimal LDL: 110- 129 mg/dLBorderline High LDL: 130-159 mg/dLHigh LDL: 160-189 mg/dLVery High LDL: greater than or equal to 190 mg/dL HDL Cholesterol 49 >40 mg/dL [facility] Comment:Desirable HDL: great er than 40 mg/dL Note: This HDL assay may give artificially low results in patients with liver disease. Blood Venous blood specimen / Unknown 08/27/2024 11:27 AM EST 08/27/2024 1:11 PM EST [facility] LAB BLOOD ORDERABLES Final Re sult [facility] [address] [place] [address] [phone] * HPV mRNA E6/E7 w/Reflex to HPV Genotypes 16, 18/45 (01/07/2024 3:15 PM EDT) HPV nRNA E6/E7 Not Detected Not Detected [facility] Comment:Methodology: Transcr iption-Mediated AmplificationThis assay detects E6/E7 viral messenger RNA (mRNA) from 14high-risk HPV types (16,18,31,33,35,39,45,51,52,56,58,59,66,68).Cervical sources are required for HPV testing.If a vaginal source from a patient who has had atotal hysterectomy with removal of cervix wassubmitted, please contact the testing laboratoryfor alternative testing options.For additional information, please refer tohttp://education.AdsIt/faq/MCD232g0(This link if provided for information/educational purposes only.)THIS TEST WAS PERFORMED AT:[employer] [place] [phone] SMALL MD HPV mRNA E6/E7 [facility] HPV 16 RNA [facility] HPV 18/45 RNA [facility] 01/07/2024 3:15 PM EDT 01/09/2024 7:30 AM EDT Radha Sebastian [facility] LAB CYTOLOGY ORDERABLES Final R esult [facility] [address] [place] [address] [phone] * Pap Smear (01/07/2024 3:15 PM EDT) 01/07/2024 3:15 PM EDT 01/09/2024 7:30 AM EDT Irma [facility] - 01/26/2024 11:54 AM EDT ----- ------- Name: Clementina Peng ? Age/Sex: 43/F ? : 1980 Unit#: [id number] ?? Attend Dr: Radha Sebastian DECORATOR STORE ?Re01/07/24 ?Status: DEP REF ? Location: HO.HHCLNP ? Disch: ? ----- ------- SPEC : [id number] ? RECD: 01/09/24-729 ? STATUS: ??SOUT ? REQ NUM: [id number] ? ROBBY: 01/07/24 ? SUBM DR: Radha Sebastian DECORATOR STORE ? ENTERED: ??01/09/24 ?SP TYPE: Pap Smr ?OTHR DR: ? ORDERED: ??Pap Smear ? Interpretation ?? Satisfactory for evaluation. ?? No endocervical cells seen. ?? Negative for intraepithelial lesion or malignancy. ?HPV mRNA E6/E7: ?NOT DETECTED ? This assay detects E6/E7 viral messenger RNA (mRNA) from 14 high-risk HPV types (16, 18, ?? 31, 33, 35, 39, 45, 51, 52, 56, 58, 59, 66, 68) ?? HPV testing performed by [employer], [place], [place]. ??See reference laboratory ?? portion of the EMR for entire report. ?Clinical Information LMP: Unknown date Previous PAP test: Unknown date/findings ? Material Received ?? ThinPrep-Vaginal/Cervical ----- ------- Signed (signature on file) ZAYNAB Dowd ([facility]) 01/26/24 1154 ? ----- ------- ? END OF REPORT ? [facility] CYT[facility] ORDERAB[facility] Final R esult [facility] [address] [place] [address] [phone] * HIV-1 RNA, Quantitative, Real-Time PCR with Reflex to Genotype (RTI, PI, Integrase) (02/26/2023 10:33 AM EDT) Pathologist [facility] HIV 1 RNA, QN PCR NOT DETECTED copies/mL [facility], HIV 1 RNA, QN PCR NOT DETECTED Log copies/mL [facility], Comment: REFERENCE RANGE: NOT DETECTED copies/mL ?NOT DETECTED ??Log copies/mL This test was performed using Real-Time Polymerase Chain Reaction. Reportable range is 20 to 10,000,000 copies/mL (1.30-7.00 Log copies/mL). 02/26/2023 10:3 3 AM EDT 02/26/2023 10:34 AM EDT Narrative [facility] - 03/02/2023 3:11 PM EDT FASTING:YES FASTING: YES [facility] CRAWLER DRAGLINE OPERATOR LAB BLOOD ORDERABLES Final Resu lt [facility] [address] [facility], [place] [address] [facility] [address] [place] [phone] from Last 3 Months or Most Recently Relevant to Health Maintenance Insurance [facility] Care Teams Med Peds Relationship Specialty Start Date End Date Aparna Shaw FNP [address] [place] [phone] PCP - General Family Medicine 05/18/24
== END 2025-01-05 14:27 | disposition home or self-care (01) ==
LOC: HO.PMC 14:00
PROVIDERS: PCP Registered Nurse; Visit Provider Anesthesiology
DX: M47.816 Spondylosis without myelopathy or radiculopathy, lumbar region (principal); M51.369 Other intervertebral disc degeneration, lumbar region without mention of lumbar back pain or lower extremity pain; M54.51 Vertebrogenic low back pain; M79.7 Fibromyalgia; M54.16 Radiculopathy, lumbar region
CPT/HCPCS: 99213

== ENCOUNTER → 2025-01-05 13:59 | Outpatient (BNVA) | payer MEDICAID, SELFPAY | PROVIDERS: PCP Registered Nurse; Visit Provider Anesthesiology | DX: M47.26 Other spondylosis with radiculopathy, lumbar region (principal); M51.360 Other intervertebral disc degeneration, lumbar region with discogenic back pain only; M79.7 Fibromyalgia | CPT/HCPCS: 99212 ==

== ENCOUNTER 2025-02-17 18:54 | Outpatient (REF) | payer MEDICAID, SELFPAY ==
--- NOTE | ~2025-02-17 | MR_ITS ---
EXAMINATION: MR BRAIN WITHOUT IV CONTRAST HISTORY: MIGRAINE TECHNIQUE: Sagittal T1, and axial T1, FLAIR, T2, gradient echo, and diffusion weighted MR images of the brain were obtained. COMPARISON: There are no prior studies available for comparison. FINDINGS: Several of the sequences are degraded by patient motion. A few scattered periventricular and subcortical white matter hyperintensities are noted on the FLAIR and T2-weighted images which are nonspecific. Pderoza/white differentiation is otherwise normal. There is no mass effect or midline shift. The ventricular system is normal in size and configuration. No intra or extra-axial fluid collections are identified. There are no foci of restricted diffusion. Normal vascular flow voids are noted in the basilar and carotid arteries. The visualized paranasal sinuses are clear. MR/MR head/brain wo con IMPRESSION: Nonspecific white matter hyperintensities. Differential diagnostic considerations include migraine, small vessel ischemic disease, Lyme disease, vasculitis, and demyelinating disease. Electronically signed by: Eliel Martel MD 02/18/2025 07:28 AM EDT
== END 2025-02-17 18:55 | disposition home or self-care (01) ==
LOC: HO.MRI 18:54
PROVIDERS: Visit Provider Registered Nurse
DX: G43.909 Migraine, unspecified, not intractable, without status migrainosus (principal)
CPT/HCPCS: 70551

== ENCOUNTER → 2025-02-17 18:59 | Outpatient (BNV) | payer MEDICAID, SELFPAY | PROVIDERS: Visit Provider Radiology Diagnostic Radiology | DX: R90.82 White matter disease, unspecified (principal) | CPT/HCPCS: 70551 ==

== ENCOUNTER 2025-06-17 15:13 | Outpatient (REF) | payer MEDICAID, SELFPAY ==
--- OUTSIDE RECORDS SUMMARY | 2025-06-17 14:40 | XMS_ITS | Encounter Summary ---
Author Organization [employer] Address [address] [facility] [address] [place] [address] Care Team Providers Care Machine Learning Intern Name Role Phone Aparna Shaw COMMUNICATIONS FIELD TECHNICIAN Primary Care Provider [phone] Reason for Visit * Reason Comments Cough Encounter Details Date Type Department Care Team ([facility] st Contact Info) Description 06/17/2025 2:40 PM EDT Office Visit [facility] [address] [place] [address] Mild persistent reactive airway disease with acute exacerbation (Primary Dx); Cough in adult; Nasal congestion Social History Tobacco Use Types Packs/Day Years Used Date Smoking Tobacco: Every Day Cigarettes Passive Smoke Exposure: Current Smokeless Tobacco: Never Tobacco Cessation:Ready to Q uit: Not Asked; Counseling Given: Not Answered Alcohol Use Standard Drinks/Week Comments Not Currently 0 (1 standard drink = 0.6 oz pur e alcohol) occasional Depression Answer Date Recorded Patient Health Questionnaire-9 Score 24 04/22/2025 Patient Health Questionnaire-9 Score 24 04/22/2025 Last PHQ-9: Questionnaire Data Not on file 0 04/22/2025 Housing Stability Answer Date Recorded What is your housing situation today? I do not have housing (Staying with others, in a hotel, in a custodial, living outside on the street, on a beach, in a car, or in a park 04/22/[address] you li ve. Do you have problems with any of the following? None of the above 04/22/2025 Food Insecurity Answer Date Recorded Within the past 12 months, y ou worried that your food would run out before you got money to buy more: Often true 04/22/2025 Within the past 12 months,th e food you bought just didn't last and you didn't have enough money to get more: Often true 04/2025 Transportation Answer Date Recorded In the past 12 months, has l ack of transportation kept you from medical appts, meetings, work or from getting things needed for daily living? Yes, it has kept me from medical appointments or getting medications. 04/22/2025 Utilities Answer Date Recorded In the past 12 months, has t he electric, gas, oil or water company threatened to shut off services in your home? Already shut Off 04/22/2025 Depression Answer Date Recorded Patient Health Questionnaire-2 Score 6 04/22/2025 Internet Access Answer Date Recorded Internet Access Q1 No 04/22/2025 Internet Access Q2 I cannot afford it 04/22/2025 Education Answer Date Recorded What is the [...] on file documented as of this encounter Last Filed Vital Signs Vital Sign Reading Time Taken Comments Blood Pressure 113/69 06/17/2025 2:37 PM EDT Pulse 69 06/17/2025 2:37 PM EDT Temperature 36.7 C (98.1 F) 06/17/2025 2:37 PM EDT Respiratory Rate 18 06/17/2025 2:37 PM EDT Oxygen Saturation 96% 06/17/2025 2:37 PM EDT Inhaled Oxygen Concentration - - Weight 88.5 kg (195 lb) 06/17/2025 2:37 PM EDT Height - - Body Mass Index 29.65 04/22/2025 11:45 AM EDT documented in this encounter Plan of Treatment Scheduled Orders Name Type Priority Associated Diagnoses Orde r Schedule XR Chest 2 Views Imaging Routine Cough in adult Mild persistent reactive airway disease with acute exacerbation Expected: 06/17/2025, Expires: 06/17/2026 documented as of this encounter Procedures Procedure Name Priority Date/Time Associated Diagnosis Comments POCT INFLUENZA B (ID NOW RAPID MOLECULAR) Routine 06/17/2025 2:39 PM EDT Cough in adult POCT INFLUENZA A (ID NOW RAPID MOLECULAR) Routine 06/17/2025 2:39 PM EDT Cough in adult POCT RAPID COVID ANTIGEN Routine 06/17/2025 2:38 PM EDT Cough in adult documented in this encounter Results * Influenza B (ID NOW Rapid Molecular) (06/17/2025 2:39 PM EDT) [facility] Influenza B Negative Negative, Indeterminate [facility] Swab 06/17/2025 2:39 PM EDT us Chelsea Garcia ANP POINT OF CARE TEST ENTER/EDIT OR DERABLES Final Result Performing Organization Address [facility]/ZIP Co de Phone Number [facility] [address] [place] [phone] * Influenza A (ID NOW Rapid Molecular) (06/17/2025 2:39 PM EDT) [facility] Influenza A Negative Negative, Indeterminate [facility] Swab 06/17/2025 2:39 PM EDT us Chelsea Garcia ANP POINT OF CARE TEST ENTER/EDIT OR DERABLES Final Result Performing Organization Address [facility] Co de Phone Number [facility] [address] [place] [phone] * POCT Rapid COVID Ag (06/17/2025 2:38 PM EDT) [facility] Rapid COVID Ag Negative Swab 06/17/2025 2:38 PM EDT us Chelsea Garcia ANP POINT OF CARE TEST ENTER/EDIT OR DERABLES Final Result documented in this encounter Visit Diagnoses Diagnosis Mild persistent reactive airway disease with acute exacerbation- Primary Cough in adult Nasal congestion Other diseases of nasal cavity and sinuses documented in this encounter Additional Health Concerns Assessment Noted Time PHQ-9 Depression Total Score: 24 025 11:48 AM EDT documented as of this encounter Care Teams Machine Learning Intern Relationship Specialty Start Date End Date Aparna Shaw FNP [address] [place] [phone] PCP - General Family Medicine 05/18/24 documented as of this encounter
--- OUTSIDE RECORDS SUMMARY | 2025-06-17 15:17 | XMS_ITS | Encounter Summary ---
Author Organization [employer] Address [address] [facility] 7t [place] [address] Care Team Providers Care Field Mechanic Name Role Phone Radha Sebastian [facility] Primary Care Provider [phone] [facility] Primary Care Provider [phone] Reason for Visit * Reason Comments Med Refill Encounter Details Date Type Department Care Team (Late st Contact Info) Description 04/01/2023 Refill [facility] [address] [place] [address] Radha Sebastian FNP [address] [place] [address] Mixed anxiety and depressive disorder Social History [...] documented in this encounter Plan of Treatment Not on file documented as of this encounter Visit Diagnoses Diagnosis Mixed anxiety and depressive disorder Dysthymic disorder documented in this encounter Additional Health Concerns Assessment Noted Time PHQ-9 Depression Total Score: 023 9:10 AM EDT documented as of this encounter Care Teams Field Mechanic Relationship Specialty Start Date End Date Radha Sebastian FNP [address] [place] [address] PCP - General Family Medicine 02/20/23 05/17/24 Aparna Shaw FNP [address] [place] [address] PCP - General Family Medicine 05/18/24 documented as of this encounter
--- OUTSIDE RECORDS SUMMARY | 2025-06-17 15:17 | XMS_ITS | Clinical Summary ---
Author Organization [employer] Address [address] [facility] 7t [place] [address] Care Team Providers Care Shredded Filler Cigar Maker Machine Name Role Phone Aparna Shaw DIRECTOR OF CARDIOPULMONARY SERVICES Primary Care Provider [phone] Allergies Active Allergy Reactions Criticality Noted Date [...] tablet 023 Active promethazine (Phenergan) 12.5 MG tabletIndication s:Migraine without aura and without status migrainosus, not intractable TAKE 1 TABLET BY MOUTH EVERY 6 HOURS NEEDED FOR NAUSEA AND VOMITING FOR UP TO 7 DAYS 30 tablet 024 Active naproxen (Naprosyn) 500 MG tablet TAKE 1 TABLET BY MOUTH TWICE DAILY 60 tablet 024 Active witch marvin-glycerin (Tucks) pad Apply topically if needed for irritation. 100 each 024 Active topiramate (Topamax) 50 MG tabletIndication s:BMI 40.0-44.9, adult (CMS/HCC) (HCC) Take 50 mg by mouth Once per day. 60 tablet 1 024 Active albuterol (Ventolin HFA) 108 (90 Base) MCG/ACT inhaler INHALE 2 PUFFS BY MOUTH EVERY 4 TO 6 HOURS NEEDED 18 g 1 Active Saccharomyces boulardii (probiotic) 250 MG capsule Take 1 capsule (250 mg) by mouth Once per day. 60 capsule 1 024 Active Fezolinetant 45 MG tablet Take 1 tablet by mouth Once per day. 30 tablet 2 024 Active Lactobacillus-In ulin (Culturelle Digestive Daily) capsuleIndicatio ns:Irritable bowel syndrome with both constipation and diarrhea Take 1 capsule by mouth once per day 90 capsule 3 024 Active sodium chloride (Broncho Saline) 0.9 % aerosol solution Inhale 1 spray every 4 (four) hours if needed for wheezing. 90 mL 024 2024 Active polyethylene glycol, PEG, 3350 (GaviLAX) 17 GM/SCOOP powder DISSOLVE 17 GRAM (1 CAPFUL) IN 8 TO 12 OUNCES OF WATER EVERY DAY AT BEDTIME NEEDED FOR CONSTIPATION 510 g 2 024 Active ketoconazole (Nizoral) 2 % shampoo APPLY TOPICALLY TWICE A WEEK 100 mL 2 025 Active fexofenadine (Eliana) 180 MG tabletIndication s:Seasonal allergic rhinitis due to other allergic trigger Take 1 tablet (180 mg) by mouth Once per day. 90 tablet 3 025 Active diphenhydrAMINE (Banophen) 50 MG capsuleIndicatio ns:Seasonal allergic rhinitis due to other allergic trigger Take 1 capsule (50 mg) by mouth if needed for itching or allergies. 30 capsule 11 025 Active olopatadine (Pataday) 0.2 % ophthalmic solutionIndicati ons:Other chronic allergic conjunctivitis of both eyes Administer 1 drop into both eyes Once per day. 2.5 mL 5 025 Active polyvinyl alcohol (Liquifilm Tears) 1.4 % ophthalmic solutionIndicati ons:Dry eyes, bilateral Administer 1 drop into both eyes if needed for dry eyes. 15 mL 6 025 2025 Active omeprazole (PriLOSEC) [address] capsule TAKE 1 CAPSULE BY MOUTH EVERY DAY IN THE MORNING BEFORE BREAKFAST 90 capsule 1 Active esomeprazole (NexIUM) [address] capsuleIndicatio ns:Gastroesophag eal reflux disease without esophagitis Take 1 capsule (40 mg) by mouth before breakfast. Do not open capsule. 30 capsule 11 025 2025 Active clonazePAM (KlonoPIN) 0.5 MG tabletIndication s:Anxiety Take 1 tablet (0.5 mg) by mouth if needed in the morning and at bedtime for anxiety for up to 28 days. 56 tablet Active eszopiclone (Lunesta) 2 MG tabletIndication s:Insomnia due to other mental disorder Take 1 tablet (2 mg) by mouth if needed at bedtime for sleep. Take immediately before bedtime 30 tablet 025 2025 Active FLUoxetine (PROzac) 40 MG capsuleIndicatio ns:Moderate episode of recurrent major depressive disorder (CMS/HCC) ([facility]) TAKE 2 CAPSULES BY MOUTH ONCE DAILY IN THE MORNING 60 capsule 1 Active Diclofenac Sodium 1 % gel APPLY 2 GRAMS TOPICALLY TO THE AFFECTED AREA(S) FOUR TIMES DAILY DIRECTED 200 g 4 Active Zepbound 5 MG/0.5ML solution auto-injectorInd ications:Class 2 obesity INJECT ONE PEN (=5MG) SUBCUTANEOUSLY ONCE A WEEK DIRECTED 2 mL Active guaiFENesin-dext romethorphan (Robitussin DM) 100-10 MG/5ML syrupIndications :Cough in adult Take 10 mL by mouth every 4 (four) hours if needed for cough for up to 10 days. 236 mL 025 2024 Active predniSONE (Deltasone) 20 MG tabletIndication s:Mild persistent reactive airway disease with acute exacerbation Take 2 tablets (40 mg) by mouth Once per day for 5 days. 10 tablet 2024 Active pseudoephedrine (Sudafed) 30 MG tabletIndication s:Nasal congestion Take 1 tablet (30 mg) by mouth every 6 (six) hours if needed for congestion for up to 7 days. 28 tablet 2024 Active budesonide-formo terol (Symbicort) 80-4.5 MCG/ACT inhalerIndicatio ns:Mild persistent reactive airway disease with acute exacerbation Take 2 puffs twice daily and every 4-6 hrs as needed for cough, SOB, wheezing. Rinse mouth with water after use to reduce aftertaste and incidence of candidiasis. Do not swallow. 1 each 11 Active Dextromethorphan -guaiFENesin (Mucinex DM) 30-600 MG tablet sustained-releas e 12 hour Use 1 tab TID 28 tablet 024 2024 Discontinued Tirzepatide-Weig ht Management (Zepbound) 2.5 MG/0.5ML solution auto-injectorInd ications:Class 1 obesity due to excess calories with serious comorbidity and body mass index (BMI) of 32.0 to 32.9 in adult Inject 0.5 mL (2.5 mg) under the skin 1 (one) time per week. 2 mL 2024 Discontinued fluticasone furoate (Arnuity Ellipta) 100 MCG/ACT inhaler INHALE 1 PUFF BY MOUTH EVERY DAY AT THE SAME TIME RINSE MOUTH AFTER USING 30 each 025 2024 Discontinued(I neffective) Zepbound 5 MG/0.5ML solution auto-injectorInd ications:Class 2 obesity INJECT ONE PEN (=5MG) SUBCUTANEOUSLY ONCE A WEEK DIRECTED 2 mL 025 2024 Discontinued budesonide-formo terol (Symbicort) 80-4.5 MCG/ACT inhalerIndicatio ns:Mild persistent reactive airway disease with acute exacerbation Take 2 puffs as needed for cough, SOB, wheezing every 4-6 hours. Rinse mouth with water after use to reduce aftertaste and incidence of candidiasis. Do not swallow. 1 each 1 025 2024 Discontinued(A lternate therapy) Active Problems Problem Noted Date Diagnosed Date [...] and housing. Clementina received a letter from [employer] denying SSI benefits. This has been identified [...] intervention , [facility], Comply with medication , Patient to engage in OP therapy , and Patient to reach out to [facility] as needed Assessment & Plan (12/11/2023 2:46 PM EDT): Counseling done c/w N therapist Insomnia 12/11/2023 Assessment & Plan (12/11/2023 [...] and housing. Clementina received a letter from [employer] denying SSI benefits. This has been identified as main trigger for increase of sxs. Struggling with anxiety sxs in the past, but able to manage with medication. PLAN: (check all that apply) New/Additional Services needed PCP management On-site non-integrated services Off-site services for Behavioral Health Integration Plan Internal Follow up with [facility], referral to CM to assist with [facility] External OP therapy referral and OP psychiatry Referral Patient Self Plan Patient to utilize skills provided in intervention , Patient to reach [facility] team as needed, Comply with medication , Patient to engage in OP therapy , and Patient to reach out to [facility] as needed Routine general medical exam ination at a health care facility 02/26/2023 Abnormal uterine bleeding 02/26/2023 PTSD (post-traumatic stress disorder) 02/26/2023 Class 2 obesity 02/24/2023 Moderate episode of recurren t major depressive disorder (CMS/HCC) 12/20/2022 Assessment & Plan (02/26/2023 1:58 PM EDT): PHQ 9 = 25 DANUTA 7 = 21 Increase quetiapine to 50 mg q am and 100 at bedtime Denies thoughts of or suicide. Referral to [facility] and prescriber placed (declined BHN at this visit) Crisis information reviewed Contact HC if sx worsen or do not improve with treatment or if experiencing thoughts of SI or self harm. Patient was provided with contact information for [facility] crisis. Consider increasing prozac if no improvement [...] abuse on . Has been in multiple usp, recently was housed, not working, struggle with [...] in services. PLAN: 1. Follow up with [facility]: Recommended for follow-up: 03/11/23 telehealth 2. Patient [...] for albuterol MDI w/ spacer sent to [facility]. Amenorrhea 07/29/2019 Overview (02/24/2023): Last Assessment & Plan: Reports LMP was May. Not using any [facility] currently. Denies any symptoms. Declines urine test today. States she will establish primary care at [facility]. I encouraged her to f/u for test and contraception as needed. Assessment & Plan (02/26/2023 1:51 PM EDT): Pelvic US for AUB Plan based on results Generalized anxiety disorder with panic attacks 07/21/2019 Homelessness 07/21/2019 Overview (12/20/2022): Last Assessment & Plan: Living at [facility], with 14 month son. Encounters Date Type Department Care Team Description 06/17/2025 2:40 PM EDT Office Visit [facility] [address] [place] [address] Mild persistent reactive airway disease with acute exacerbation (Primary Dx); Cough in adult; Nasal congestion 06/17/2025 Travel 06/02/2025 Refill [facility] [address] [place] [address] Aparna Shaw FNP Class 2 obesity 05/10/2025 Refill [facility] [address] [place] [address] Name, MD Konrad 05/09/2025 Refill [facility] [address] [place] [address] Tarka, Claudette, OD Other chronic allergic conjunctivitis of both eyes 04/26/2025 Telephone [facility] [address] [place] [address] Aparna Shaw FNP telephone call 04/26/2025 Patient Outreach [facility] [address] [place] [address] Aparna Shaw FNP Care Coordination ([facility] outreach for [facility] housing search-referral completed ) 04/24/2025 Refill [facility] [address] [place] [address] Aparna Shaw FNP Moderate episode of recurrent major depressive disorder (CMS/HCC) 04/22/2025 11:30 AM EDT Office Visit [facility] [address] [place] [address] Aparna Shaw FNP Anxiety (Primary Dx); Class 1 obesity due to excess calories with serious comorbidity and body mass index (BMI) of 32.0 to 32.9 in adult; Gastroesophageal reflux disease without esophagitis; Insomnia due to other mental disorder 04/22/2025 Travel 04/22/2025 Refill [facility] [address] [place] [address] Aparna Shaw FNP Class 2 obesity 04/21/2025 Telephone [facility] [address] [place] [phone] Aparna Shaw FNP chart prep 04/13/2025 Patient Outreach [facility] [address] [place] [address] Aparna Shaw FNP Care Coordination ([facility] outreach for SDOH PT-1 and food needs-Lvm ) 04/13/2025 Patient Outreach [facility] [address] [place] [address] Aparna Shaw FNP Pre-visit Planning (SDOH screening negative and tobacco screening negative) 04/08/2025 Refill [facility] [address] [place] [address] Aparna Shaw FNP Primary insomnia 04/01/2025 Refill [facility] [address] [place] [address] BrooksAparna monique FNP Anxiety 04/01/2025 Refill [facility] [address] [place] [address] Radha Sebastian FNP 03/31/2025 Refill [facility] [address] [place] [address] Tarvicente, Claudette, OD Other chronic allergic conjunctivitis of both eyes from Last 3 Months Immunizations Immunization Administration Dates Next Due Influenza, seasonal, injectable, [...] with others, in a hotel, in a usp, living outside on the street, on a [...] the past 12 months, has t he [employer] gas, oil or water [employer] threatened to shut off services in your [...] (195 lb) 06/17/2025 2:37 PM EDT Height 172.7 cm (5' 8 ) 04/22/2025 11:45 AM EDT Body Mass Index 29.65 04/22/2025 11:45 AM EDT Plan of Treatment Health Maintenance Due Date [...] Years) and At-Risk Patients (6 to 49) Years (2 of 2 - PCV) 05/04/2019 05/04/2018 COVID-19 Vaccine (1 - 2023-2 5 season) 2025 Influenza Vaccine (#1) 2025 08/27/2024 Mammogram 10/12/2025 10/12/2024 Depression Monitoring 10/23/2025 04/22/2025 , 04/22/2025 Disability Screening 04/22/2026 04/22/2025 SDOH Screening 04/22/2026 04/22/2025 Tobacco Screening 06/17/2026 06/17/2025 DTaP/Tdap/Td Vaccines (2 - T d or Tdap) 03/20/2028 03/20/2018 Cervical Cancer Screening 01/06/2029 HPV/Cotest 01/06/2029 01/07/2024 Pap Smear 01/06/2029 01/07/2024 Zoster Vaccines (1 of 2) 2029 Lipid Panel 08/27/2029 08/27/2024, 02/26/2023 RSV Patients and Patients Aged 60 years or older (1 - 1-dose 75+ series) 2054 HIV Screening Completed 02/26/2023 HIB Vaccines Aged Out No longer eligi [...] 06/17/2025 2:38 PM EDT Cough in adult BI MAMMOGRAM SCREENING TOMOSYNTHESIS BILATERAL Routine 10/12/2024 [...] Recently Relevant to Health Maintenance Results * Influenza B (ID NOW Rapid Molecular) (06/17/2025 2:39 PM EDT) [facility] Influenza B Negative Negative, Indeterminate [facility] Swab 06/17/2025 2:39 PM EDT us Chelsea MCWILLIAMS POINT OF CARE TEST ENTER/EDIT OR DERABLES Final Result Performing Organization Address [facility] Co de Phone Number [facility] [address] [place] [phone] * Influenza A (ID NOW Rapid Molecular) (06/17/2025 2:39 PM EDT) [facility] Influenza A Negative Negative, Indeterminate [facility] Swab 06/17/2025 2:39 PM EDT us Chelsea Garcia ANP POINT OF CARE TEST ENTER/EDIT OR DERABLES Final Result Performing Organization Address [facility] Co de Phone Number [facility] [address] [place] [phone] * POCT Rapid COVID Ag (06/17/2025 2:38 PM EDT) [facility] Rapid COVID Ag Negative Swab 06/17/2025 2:38 PM EDT us Chelsea Garcia ANP POINT OF CARE TEST ENTER/EDIT OR DERABLES Final Result * BI Mammogram Screening Tomosynthesis Bilateral (10/12/2024 1:06 PM EST) Anatomical Region Laterality Modality Breast Bilateral Mammography 10/12/2024 1:06 PM EST Narrative 10/22/2024 3:55 PM EST [facility]'[address] [place] [address] Mammography Report Signed Patient: Clementina Peng MR#: [id number] 1946 : 1980 Acct:[id number] Age/Sex: 44 / F ADM Date: 10/12/24 Loc: HO.MAMMO Attending Dr: Aparna Shaw DIRECTOR OF CARDIOPULMONARY SERVICES Ordering Physician: Aparna Shaw DIRECTOR OF CARDIOPULMONARY SERVICES Results: 1Nega tive Date of Service: 10/12/24 Follow Up: 1 Year From Orig ina Mammogram Procedure(s): MM tomosynthesis screening BI Accession Number(s): [id number] cc: Aparna Shaw DIRECTOR OF CARDIOPULMONARY SERVICES EXAMINATION: MM SCREENING DIGITAL BREAST TOMOSYNTHESIS, BILATERAL [...] Nasima Cortez DO 10/22/2024 03:52 PM EST Dictated By: Nasima Cortez DO Signed By: <Electronically signed by Nasima Cortez DO in OV> 10/22/24 1552 DD/ 1306 TD/TT: 10/12/24 1320 Boilermaker Welder: Procedure Note Donotuseinterpreter, Image - 10/22/20[facility] [address] [place], [place] [address] Mammography Report Signed Patient: Clementina PengMR#: [id number] 1946 : 1980Acct:[id number] Age/Sex: 44 / FADM Date: 10/12/24 Loc: HO.MAMMO Attending Dr: Aparna BALP Ordering Physician: Aparna Shaw FNPResults: 1Nega tive Date of Service: 10/12/24Follow Up: 1 Year From Orig inal Mammogram Procedure(s): MM tomosynthesis screening BI Accession Number(s): [id number] cc: Aparna Shaw DIRECTOR OF CARDIOPULMONARY SERVICES EXAMINATION: MM SCREENING DIGITAL BREAST TOMOSYNTHESIS, BILATERAL [...] Nasima Cortez DO 10/22/2024 03:52 PM EST Dictated By: Nasima Cortez DO Signed By: <Electronically signed by Nasima Cortez DO in OV> 10/22/24 1552 DD/ 1306 TD/TT: 10/12/24 1320 Boilermaker Welder: [facility] DIRECTOR OF CARDIOPULMONARY SERVICES IMG BI PROCEDURES Final Resul t * (ABNORMAL) Lipid Panel, Standard (08/27/2024 11:27 AM EST) Triglycerides 183(H) <150 mg/dL [facility] Comment:Desirable Triglyceri de: less than 150 mg/dLBorderline High Triglyceride 150-199 mg/dLHigh Triglyceride: 200-499 mg/dLVery High Triglyceride: greater than or equal to 5OO mg/dL Cholesterol 243(H) <200 mg/dL [facility] Comment:Desirable Cholestero l: less than 200 mg/dLBorderline High Cholesterol: 200-239 mg/dLHigh Cholesterol: greater than 239 mg/dL LDL Cholesterol Calculated 158(H) <100 mg/dL [facility] Comment:Desirable LDL: less than 100 mg/dLNear Optimal/Above Optimal LDL: 110- 129 mg/dLBorderline High LDL: 130-159 mg/dLHigh LDL: 160-189 mg/dLVery High LDL: greater than or equal to 190 mg/dL HDL Cholesterol 49 >40 mg/dL [facility] Comment:Desirable HDL: great er than 40 mg/dL Note: This HDL assay may give artificially low results in patients with liver disease. Blood Venous blood specimen / Unknown 08/27/2024 11:27 AM EST 08/27/2024 1:11 PM EST [facility] LAB BLOOD ORDERABLES Final Re sult [facility] [address] [place] [address] [phone] * HPV mRNA E6/E7 w/Reflex to HPV Genotypes 16, 18/45 (01/07/2024 3:15 PM EDT) HPV nRNA E6/E7 Not Detected Not Detected [facility] Comment:Methodology: Transcr iption-Mediated AmplificationThis assay detects E6/E7 viral messenger RNA (mRNA) from 14high-risk HPV types (16,18,31,33,35,39,45,51,52,56,58,59,66,68).Cervical sources are required for HPV testing.If a vaginal source from a patient who has had atotal hysterectomy with removal of cervix wassubmitted, please contact the testing laboratoryfor alternative testing options.For additional information, please refer [email or web address]iv[employer] Trader/faq/SHJ381k3(This link if provided for information/educational purposes only.)THIS TEST WAS PERFORMED AT:[employer] [place] [phone] SMALL MD HPV mRNA E6/E7 TNP [facility] HPV 16 RNA TNP [facility] HPV 18/45 RNA TNP [facility] 01/07/2024 3:15 PM EDT 01/09/2024 7:30 AM EDT us Radha Sebastian [facility] CYTOLOGY ORDERABLES Final R esult [facility] [address] [place] [address] [phone] * Pap Smear (01/07/2024 3:15 PM EDT) 01/07/2024 3:15 PM EDT 01/09/2024 7:30 AM EDT Narrative [facility] - 01/26/2024 11:54 AM EDT ----- ------- Name: Clementina Peng Age/Sex: 43/F : 1980 Unit#: [id number] Attend Dr: Radha Sebastian MANAGER OUTPATIENT Re01/07/24 Status: DEP [facility] Disch: ----- ------- SPEC : [id number] RECD: 01/09/24 STATUS: JAMILAH SALAS NUM: [id number] ROBBY: 01/07/[address] [facility] [address]: Radha Sebastian MANAGER OUTPATIENT ENTERED: 01/09/24 SP TYPE: Pap Smr OTHR DR: ORDERED: Pap Smear Interpretation Satisfactory for evaluation. No endocervical cells seen. Negative for intraepithelial lesion or malignancy. HPV mRNA E6/E7: NOT DETECTED This assay detects E6/E7 viral messenger RNA (mRNA) from 14 high-risk HPV types (16, 18, 31, 33, 35, 39, 45, 51, 52, 56, 58, 59, 66, 68) HPV testing performed by [employer], [place], [place]. See reference laboratory portion of the EMR for entire report. Clinical Information LMP: Unknown date Previous PAP test: Unknown date/findings Material Received ThinPrep-Vaginal/Cervical ----- ------- Signed (signature on file) ZAYNAB Dowd (ASCP) 01/26/24 1154 ----- ------- END OF REPORT Radha Sebastian [facility] CYTOLOGY ORDERABLES Final R esult [facility] [address] [place] [address] [phone] * HIV-1 RNA, Quantitative, Real-Time PCR with Reflex to Genotype (RTI, PI, Integrase) (02/26/2023 10:33 AM EDT) HIV 1 RNA, QN PCR NOT DETECTED copies/mL [facility], HIV 1 RNA, QN PCR NOT DETECTED Log copies/mL [facility], Comment: REFERENCE RANGE: NOT DETECTED copies/mL NOT DETECTED Log copies/mL This test was performed using Real-Time Polymerase Chain Reaction. Reportable range is 20 to 10,000,000 copies/mL (1.30-7.00 Log copies/mL). 02/26/2023 10:3 3 AM EDT 02/26/2023 10:34 AM EDT Narrative [facility] - 03/02/2023 3:11 PM EDT FASTING:YES FASTING: YES Radha Romulo [facility] BLOOD ORDERABLES Final Resu lt Performing Organization Address City/[facility]/ZIP Co de Phone Number [facility] [address], [place] [address] [facility], [address] [place] [phone] from Last 3 Months or Most Recently Relevant to Health Maintenance Insurance [facility] C3 Care Teams Shredded Filler Cigar Maker Machine Relationship Specialty Start Date End Date Aparna Shaw FNP [address] [place] [phone] PCP - General Family Medicine 05/18/24
--- OUTSIDE RECORDS SUMMARY | 2025-06-17 15:17 | XMS_ITS | Encounter Summary ---
Author Organization [employer] Address [address] [facility] [address] [place] [address] Care Team Providers Care Set Designer Name Role Phone Aparna Shaw DIRECTOR OF ENVIRONMENTAL SERVICES Primary Care Provider [phone] Reason for Visit * Reason Comments Med Refill Encounter Details Date Type Department Care Team (Late st Contact Info) Description 03/31/2025 Refill [facility] [address] [place] [address] Claudette Rea, OD [address] [place] [address] Other chronic allergic conjunctivitis of both eyes Social History Tobacco Use Types Packs/Day Years [...] as of this encounter Plan of Treatment Not on file documented as of this encounter Visit Diagnoses Diagnosis Other chronic allergic conjunctivitis of both eyes documented in this encounter Additional Health Concerns Assessment Noted Time PHQ-9 Depression Total Score: 24 025 2:59 PM EDT documented as of this encounter Care Teams Set Designer Relationship Specialty Start Date End Date Aparna Shaw FNP [address] [place] [phone] PCP - General Family Medicine 05/18/24 documented as of this encounter
--- OUTSIDE RECORDS SUMMARY | 2025-06-17 15:17 | XMS_ITS | Encounter Summary ---
Author Organization [employer] Address [address] [facility] 7t [place] [address] Care Team Providers Care Svp Digital Ad Sales Name Role Phone Radha Sebastian [facility] Primary Care Provider [phone] [facility] Primary Care Provider [phone] Reason for Visit * Reason Onset Date Comments FYI 03/19/2024 Encounter Details Date Type Department Care Team ([facility] st Contact Info) Description 03/19/2024 Telephone [facility] MEDICINE [address] [place] [address] Radha Sebastian COURTROOM CLERK [address] [place] [address] FYI Social History Tobacco Use Types Packs/Day [...] visit at 3:15. Please contact pt at [phone]. documented in this encounter Plan of Treatment Not on file documented as of this encounter Visit Diagnoses Not on filedocumented in this encounter Additional Health Concerns Assessment Noted Time PHQ-9 Depression Total Score: 24 024 1:55 PM EDT documented as of this encounter Care Teams Svp Digital Ad Sales Relationship Specialty Start Date End Date Radha Sebastian FNP [address] [place] [address] PCP - General Family Medicine 02/20/23 05/17/24 Aparna Shaw FNP [address] [place] [address] PCP - General Family Medicine 05/18/24 documented as of this encounter
--- OUTSIDE RECORDS SUMMARY | 2025-06-17 15:17 | XMS_ITS | Encounter Summary ---
Author Organization [employer] Address [address] [facility] [address] 7t [place] [address] Care Team Providers Care Tooling Specialist Name Role Phone Radha Sebastian [facility] Primary Care Provider [phone] [facility] Primary Care Provider [phone] Encounter Details Date Type Department Care Team (Late st Contact Info) Description 03/17/2024 Orders Only [facility] [address] [place] [address] Radha Sebastian FNP [address] [facility] [place] [address] Social History Tobacco Use Types Packs/Day Years [...] documented as of this encounter Care Teams Tooling Specialist Relationship Specialty Start Date End Date Radha Sebastian FNP [address] [place] [address] PCP - General Family Medicine 02/20/23 05/17/24 Aparna Shaw FNP [address] [place] [address] PCP - General Family Medicine 05/18/24 documented as of this encounter
--- OUTSIDE RECORDS SUMMARY | 2025-06-17 15:17 | XMS_ITS | Encounter Summary ---
Author Organization [employer] Address [address] [facility] 7t [place] [address] Care Team Providers Care Patient Registration Rep Name Role Phone Aparna Shaw CAFETERIA ASSISTANT Primary Care Provider [phone] Reason for Visit * Reason Comments Med Refill Encounter Details Date Type Department Care Team (Late st Contact Info) Description 05/09/2025 Refill [facility] [address] [place] [address] Claudette Rea, OD [address] [place] [address] Other chronic allergic conjunctivitis of both eyes [...] with others, in a hotel, in a mcfp, living outside on the street, on a [...] documented as of this encounter Care Teams Patient Registration Rep Relationship Specialty Start Date End Date Aparna Shaw FNP [address] [place] [address] PCP - General Family Medicine 05/18/24 documented as of this encounter
--- OUTSIDE RECORDS SUMMARY | 2025-06-17 15:17 | XMS_ITS | Encounter Summary ---
Author Organization [email or web address] Address [address] [facility] 7t [place] [address] Care Team Providers Care Medical Staff Specialist Name Role Phone Aparna Shaw COLOR STRAINER Primary Care Provider [phone] Encounter Details Date Type Department Care Team (Latest Contact Info) Description 06/17/2025 Travel Social History Tobacco Use Types Packs/Day [...] with others, in a hotel, in a senior care, living outside on the street, on a [...] as of this encounter Care Teams Medical Staff Specialist Relationship Specialty Start Date End Date Aparna Shaw FNP [address] [place] [address] PCP - General Family Medicine 05/18/24 documented as of this encounter
--- OUTSIDE RECORDS SUMMARY | 2025-06-17 15:17 | XMS_ITS | Clinical Summary ---
Author Organization [facility] ity Address [address] [place] [address] Care Team Providers Care Solar Installer Pv Name Role Phone Leonard Delgadillo MD Primary [...] Cervical Cancer Screening: P ap Smear 2000 Depression Screening 09/15/2024 COVID-19 Vaccine (1 - 2023-2 5 season) 2025 Influenza Vaccine (#1) 2025 RSV Immunization Adult Patie nts (1 - 1-dose 75+ series) 2054 HIB Vaccines Aged Out No longer eligi [...] 5 Years) and At-Risk Patients (6 to 49 Years) Aged Out No longer eligible b ased on patient's age to complete this topic RSV Immunization Patients Un lidia 20 months Aged Out No longer eligible b ased on patient's age to complete this topic Varicella Vaccines Aged Out No longer eligible based on patient's age to complete this topic Care Teams Solar Installer Pv Relationship Specialty Start Date End Date Leonard Delgadillo MD PCP - General Internal Medicine 04/14/19
--- OUTSIDE RECORDS SUMMARY | 2025-06-17 15:17 | XMS_ITS | Encounter Summary ---
Author Organization [employer] Address [address] [facility] 7t [place] [address] Care Team Providers Care Corporate Bond Trader Name Role Phone Phyllis [facility] Primary Care Provider [phone] Encounter Details Date Type Department Care Team ([facility] st Contact Info) Description 07/05/2024 Telephone [facility] MEDICINE [address] [place] [address] Phyllis [facility] [address] [place] [address] Social History Tobacco Use Types Packs/Day Years [...] documented as of this encounter Care Teams Corporate Bond Trader Relationship Specialty Start Date End Date Aparna Shaw FNP [address] [place] [address] PCP - General Family Medicine 05/18/24 documented as of this encounter
--- OUTSIDE RECORDS SUMMARY | 2025-06-17 15:18 | XMS_ITS | Encounter Summary ---
Author Organization [employer] Address [address] [facility] 7t [place] [address] Care Team Providers Care Assembly Loader Name Role Phone Radha Sebastian Primary Care Provider [phone] [place] Aparna WIN Primary Care Provider [phone] Reason for Visit * Reason Comments Med Refill Encounter Details Date Type Department Care Team (Late st Contact Info) Description 01/23/2023 Refill [facility] [address] [place] [address] Shakira Beard FNP Social History Tobacco Use [...] Noted Time PHQ-9 Depression Total Score: 24 04/2 023 1:31 PM EDT documented as of this encounter Care Teams Assembly Loader Relationship Specialty Start Date End Date Radha Sebastian FNP [address] [place] [address] PCP - General Family Medicine 02/20/23 05/17/24 IukaAparna FNP [address] [place] [address] PCP - General Family Medicine 05/18/24 documented as of this encounter
--- OUTSIDE RECORDS SUMMARY | 2025-06-17 15:18 | XMS_ITS | Encounter Summary ---
Author Organization [employer] Address [address] [facility] 7t [place] [address] Care Team Providers Care Mash Tub Cooker Operator Name Role Phone Aparna Shaw [facility] Primary Care Provider [phone] Reason for Visit * Reason Onset Date Comments Med Refill 09/30/2024 Encounter Details Date Type Department Care Team (Late st Contact Info) Description 09/30/2024 Refill [facility] MEDICINE [address] [place] [address] Radha Sebastian FNP [address] [place] [address] Social History Tobacco Use Types Packs/Day Years [...] documented as of this encounter Care Teams Mash Tub Cooker Operator Relationship Specialty Start Date End Date Aparna Shaw FNP [address] [place] [address] PCP - General Family Medicine 05/18/24 documented as of this encounter
--- OUTSIDE RECORDS SUMMARY | 2025-06-17 15:18 | XMS_ITS | Encounter Summary ---
Author Organization [employer] Address [address] [place] [address] 7t [place] [address] Care Team Providers Care Sld Educational Aide Name Role Phone Radha SebastianP Primary Care Provider [phone] Aparna Shaw STEEL POURER HELPER Primary Care Provider [phone] Reason for Visit * Reason Comments Med Refill Encounter Details Date Type Department Care Team (Late st Contact Info) Description 10/23/2022 Refill [facility] MEDICINE [address] [place] [address] Robert De La O FNP Social History [...] on filedocumented in this encounter Care Teams Sld Educational Aide Relationship Specialty Start Date End Date Radha Sebastian FNP [address] [place] [address] PCP - General Family Medicine 02/20/23 05/17/24 Aparna Shaw FNP [address] [place] [address] PCP - General Family Medicine 05/18/24 documented as of this encounter
--- OUTSIDE RECORDS SUMMARY | 2025-06-17 15:18 | XMS_ITS | Encounter Summary ---
Author Organization [employer] Address [address] [facility] 7t [place] [address] Care Team Providers Care Toolroom Checker Name Role Phone Radha Sebastian Primary Care Provider [phone] Aparna Shaw Primary Care Provider [phone] Reason for Visit * Reason Comments Med Refill Encounter Details Date Type Department Care Team (Late st Contact Info) Description 02/13/2023 Refill [facility] [address] [place] [address] Shakira Beard FNP Social History Tobacco Use [...] documented as of this encounter Care Teams Toolroom Checker Relationship Specialty Start Date End Date Radha Sebastian FNP [address] [place] [address] PCP - General Family Medicine 02/20/23 05/17/24 Aparna Shaw FNP [address] [place] [address] PCP - General Family Medicine 05/18/24 documented as of this encounter
--- OUTSIDE RECORDS SUMMARY | 2025-06-17 15:18 | XMS_ITS | Encounter Summary ---
Author Organization [employer] Address [address] [facility] 7t [place] [address] Care Team Providers Care Label Operator Name Role Phone Radha Sebastian [facility] Primary Care Provider [phone] [facility] Primary Care Provider [phone] Encounter Details Date Type Department Care Team ([facility] st Contact Info) Description 10/29/2023 Abstract [facility] MEDICINE [address] [place] [address] Radha Sebastian FNP [address] [place] [address] Social History Tobacco Use Types Packs/Day Years [...] documented as of this encounter Care Teams Label Operator Relationship Specialty Start Date End Date Radha Sebastian FNP [address] [place] [address] PCP - General Family Medicine 02/20/23 05/17/24 Aparna Shaw FNP [address] [place] [address] PCP - General Family Medicine 05/18/24 documented as of this encounter
--- OUTSIDE RECORDS SUMMARY | 2025-06-17 15:18 | XMS_ITS | Encounter Summary ---
Author Organization [employer] Address [address] [facility] 7t [place] [address] Care Team Providers Care Supervisor Pumping Station Name Role Phone Radha Sebastian [facility] Primary Care Provider [phone] AlpineAparna [facility] Primary Care Provider [phone] Reason for Visit * Reason Comments Med Refill Encounter Details Date Type Department Care Team ([facility] st Contact Info) Description 01/07/2023 Refill [facility] [address] [place] [address] Shakira Beard FNP Social History Tobacco Use [...] documented as of this encounter Care Teams Supervisor Pumping Station Relationship Specialty Start Date End Date Radha Sebastian FNP [address] [place] [address] PCP - General Family Medicine 02/20/23 05/17/24 Aparna Shaw FNP [address] [place] [address] PCP - General Family Medicine 05/18/24 documented as of this encounter
--- OUTSIDE RECORDS SUMMARY | 2025-06-17 15:18 | XMS_ITS | Encounter Summary ---
Author Organization [employer] Address [address] [facility] 7t [place] [address] Care Team Providers Care Crna Name Role Phone Radha Sebastian [facility] Primary Care Provider [phone] [facility] Primary Care Provider [phone] Reason for Visit * Reason Comments Med Refill Encounter Details Date Type Department Care Team ([facility] st Contact Info) Description 12/15/2023 Refill [facility] MEDICINE [address] [place] [address] Radha Sebastian FNP [address] [place] [address] Social History Tobacco Use Types Packs/Day Years [...] documented as of this encounter Care Teams Crna Relationship Specialty Start Date End Date Radha Sebastian FNP [address] [place] [address] PCP - General Family Medicine 02/20/23 05/17/24 Aparna Shaw FNP [address] [place] [address] PCP - General Family Medicine 05/18/24 documented as of this encounter
--- OUTSIDE RECORDS SUMMARY | 2025-06-17 15:18 | XMS_ITS | Encounter Summary ---
Author Organization [employer] Address [address] [facility] 7t [place] [address] Care Team Providers Care Automotive Customer Experience Advisor Name Role Phone Radha Sebastian Primary Care Provider [phone] Aparna Shaw Primary Care Provider [phone] Reason for Visit * Reason Comments Med Refill Encounter Details Date Type Department Care Team (Late st Contact Info) Description 02/12/2023 Refill [facility]ALK[facility] [address] [place] [address] Shakira Beard FNP Social History Tobacco Use [...] documented as of this encounter Care Teams Automotive Customer Experience Advisor Relationship Specialty Start Date End Date Radha Sebastian FNP [address] [place] [address] PCP - General Family Medicine 02/20/23 05/17/24 Aparna Shaw FNP [address] [place] [address] PCP - General Family Medicine 05/18/24 documented as of this encounter
--- OUTSIDE RECORDS SUMMARY | 2025-06-17 15:18 | XMS_ITS | Encounter Summary ---
Author Organization [employer] Address [address] [facility] 7t [place] [address] Care Team Providers Care Product Support Engineer Name Role Phone Radha Sebastian [facility] Primary Care Provider [phone] [place] [facility] Primary Care Provider [phone] Reason for Visit * Reason Comments Med Refill Encounter Details Date Type Department Care Team (Late st Contact Info) Description 02/18/[address] [facility]ALK[facility]IN [facility] [address] [place] [address] Shakira Beard FNP Social History Tobacco Use [...] PM EDT documented as of this encounter Functional Status * Over the last 2 weeks, how often have you been bothered by any of the following problems? Question Answer Date of Assessment Author Feeling nervous, anxious, or on edge 3 03/2023 11:36 AM EDT Manjula Barney Not being able to stop or co ntrol worrying 3 02/19/2023 11:36 AM EDT Manjula Barney Worrying too much about diff erent things 3 02/19/2023 11:36 AM EDT Manjula Barney Trouble relaxing 3 02/19/2023 11:36 AM EDT Manjula Barney Being so restless that it is hard to sit still 3 02/19/2023 11:36 AM EDT Manjula Barney Becoming easily annoyed or irritable 3 03/2023 11:36 AM EDT Manjula Barney Feeling afraid as if somethi ng awful might happen 3 02/19/2023 11:36 AM EDT Manjula Barney DANUTA-7 Total Score 21 02/19/2023 11:36 AM EDT Manjula Barney documented as of this encounter Plan of Treatment Not on file documented as of this encounter Visit Diagnoses Not on filedocumented in this encounter Additional Health Concerns Assessment Noted Time PHQ-9 Depression Total Score: 24 023 1:31 PM EDT documented as of this encounter Care Teams Product Support Engineer Relationship Specialty Start Date End Date Radha Sebastian FNP [address] [place] [address] PCP - General Family Medicine 02/20/23 05/17/24 Aparna Shaw FNP [address] [place] [address] PCP - General Family Medicine 05/18/24 documented as of this encounter
--- OUTSIDE RECORDS SUMMARY | 2025-06-17 15:18 | XMS_ITS | Encounter Summary ---
Author Organization [employer] Address [address] [facility] 7t [place] [address] Care Team Providers Care Securities Dealer Name Role Phone Radha Sebastian Primary Care Provider [phone] [place] Aparna WIN Primary Care Provider [phone] Reason for Visit * Reason Comments Med Refill Encounter Details Date Type Department Care Team (Late st Contact Info) Description 01/22/2023 Refill [facility] [address] [place] [address] Shakira Beard FNP Social History Tobacco Use [...] documented as of this encounter Care Teams Securities Dealer Relationship Specialty Start Date End Date Radha Sebastian FNP [address] [place] [address] PCP - General Family Medicine 02/20/23 05/17/24 [place]Aparna FNP [address] [place] [address] PCP - General Family Medicine 05/18/24 documented as of this encounter
--- OUTSIDE RECORDS SUMMARY | 2025-06-17 15:18 | XMS_ITS | Encounter Summary ---
Author Organization [employer] Address [address] [facility] [address]t [place] [address] Care Team Providers Care Occupational Health Professional Name Role Phone Radha Sebastian [facility] Primary Care Provider [phone] [facility] Primary Care Provider [phone] Reason for Visit * Reason Comments Med Refill Encounter Details Date Type Department Care Team ([facility] st Contact Info) Description 07/31/2023 Refill [facility]ALK[facility] [address] [place] [address] [facility] [address] [place] [address] Migraine without aura and without status migrainosus, [...] documented as of this encounter Care Teams Occupational Health Professional Relationship Specialty Start Date End Date Radha Sebastian FNP [address] [place] [address] PCP - General Family Medicine 02/20/23 05/17/24 ValeriaAparna monique FNP [address] [place] [address] PCP - General Family Medicine 05/18/24 documented as of this encounter
== END 2025-06-17 15:14 | disposition home or self-care (01) ==
LOC: HO.HHCX 15:13
PROVIDERS: Visit Provider Nurse Practitioner Primary Care
DX: Z13.89 Encounter for screening for other disorder (principal)